=== PATIENT | female | born 1950 | race Caucasian/White ===

== ENCOUNTER 2019-06-23 16:07 | Inpatient (IN) | payer MEDICARE, OTHER ==
[~2019-06-23] VITALS: Ht 160 cm; Wt 77.6 kg
[2019-06-23] MEDS ORDERED: SODIUM CHLORIDE 0.9% 1000ML 1,000 ML IV STA (16:23)
--- NOTE | 2019-06-23 16:28 | Emergency Department Note ---
History of Present Illnes History of Present Illness Chief Complaint: Respiratory History of Present Illness This is a 69 year old female seen by PCP for cough, agnosia and weakn ess of 3 week duration. Historian: Patient, Family Member Arrival Mode: Car Onset (how long ago): week(s) (3) Radiation: non-radiation Severity: moderate Duration (how long): week(s) (3) Timing of current episode: constant Progression: worsening Chronicity: new Context: recent illness Relieving factors: none Exacerbating factors: none Associated symptoms: cough, fever/chills Treatments prior to arrival: none Past Medical/Family History Physician Review I have reviewed the patient's past medical and family history. Any updates have been documented here. Past Medical History Recent Fever: No Clinical Suspicion of Infectio: No New/Unexplained Change in Ment: No Past Medical History: None Past Surgical History: None Social History Smoking Cessation: Never Smoker Alcohol Use: None Any Illegal Drug Use: No Family History Family history of heart diseas: No Other Last Tetanus: 04/18/2019 Review of Systems Review of Systems Constitutional: fever EENTM: no symptoms Cardiovascular: no symptoms Respiratory: cough Gastrointestinal: no symptoms Genitourinary: no symptoms Musculoskeletal: no symptoms Neurological: no symptoms Psychological: no symptoms Endocrine: no symptoms Hematological/Lymphatic: no symptoms Review of other systems All other systems reviewed and negative. Physical Exam Related Data Allergies: Coded Allergies: Penicillins (Verified Allergy, Mild, 10/11/09) Triage Vital Signs Vital Signs Date Time Temp Pulse Resp B/P (MAP) Pulse Ox O2 Delivery O2 Flow Rate FiO2 06/23/19 16:19 97.5 104 24 145/81 93 Vital signs reviewed: Yes Physical Exam CONSTITUTIONAL Constitutional: distressed, ill appearing HENT HENT: normocephalic, atraumatic, oropharynx clear/moist, nose normal HENT L/R: left ext ear normal, right ext ear normal EYES Eyes: PERRL, conjunctivae normal NECK Neck: ROM normal PULMONARY Pulmonary: effort normal, breath sounds normal CARDIOVASCULAR Cardiovascular: regular rhythm, heart sounds normal, capillary refill normal, normal rate GASTROINTESTINAL Abdominal: soft, nontender, bowel sounds normal GENITOURINARY Genitourinary: exam deferred SKIN Skin: warm, dry MUSCULOSKELETAL Musculoskeletal: ROM normal NEUROLOGICAL Neurological: alert, oriented x 3, no gross motor or sensory deficits PSYCHOLOGICAL Psychological: mood/affect normal, judgement normal Results Laboratory Laboratory comments CMP : Na of 124 WBC : 14 k UA : moderate bacteria Imaging Imaging results reviewed: Yes Impressions [place] [address] Patient Name: YAMILETH LUDWIG MR #: [id number] : 1950 Age/Sex: 69/F Req #: [id number] Adm Physician: DOMINIQUE JUNIOR MD Ordered by: SUSIE WRIGHT DO Report #: [id number] Location: [facility] Room/Bed: [place] [address] Procedure: [id number] DX/CHEST SINGLE (PORTABLE) Exam Date: 06/23/19 Exam Time: 1934 REPORT STATUS: Signed Examination: Single AP view of the chest. COMPARISON: None. INDICATION: Hard time breathing, cough, shortness of breath IMPRESSION: 1. Lines and Tubes: None 2. Almost complete opacification of the right hemithorax likely secondary to large pleural effusion and associated atelectasis of the right lung. Mild patchy atelectatic changes in the left lower lung. 3. Cardiac silhouette is obscured. Left pulmonary vasculature is normal. 4. No acute bony abnormalities. Signed by: Dr. Daisy Pittman M.D. on 06/23/2019 7:58 PM Dictated By: DAIYS PITTMAN MD 57 Transcribed By: ANNIE on 06/23/191957 COPY TO: SUSIE WRIGHT DO~ Procedures 12 Lead ECG Interpretation Hspt Tutor: Interpreted by ED physician Date: June 23, 2019 Time: 18:00 Prior DRAW IN HAND tracings: reviewed Rhythm: sinus rhythm Rate: normal BPM: 97 QRS axis: normal Clinical Impression: non-specific ECG (poor R wave progressoin) Assessment & Plan Assessment & Plan Problems: (1) Pneumonia (2) Bacteria in urine (3) Hyponatremia Assessment & Plan Patient PUI with h/o of cough and agnosia. Plan to admit to the COVID-19 unit Depart Disposition: ADMITTED Last Vital Signs Date Time Temp Pulse Resp B/P (MAP) Pulse Ox O2 Delivery O2 Flow Rate FiO2 06/23/19 16:19 97.5 104 24 145/81 93 SUSIE WRIGHT DO June 23, 2019 16:28
--- NOTE | 2019-06-23 17:28 | NUR ---
SON; SOHAIL LUDWIG
[2019-06-23 18:13] LABS: BASOPHILS # (AUTO) 0.1 (0.0-0.1); BASOPHILS % 0.4 % (0.0-1.0); EOSINOPHILS % 0.2 % (0.0-6.0); HEMATOCRIT 42.5 % (34.2-44.1); HEMOGLOBIN 14.6 g/dL (12.0-16.0); LYMPHOCYTES # (AUTO) 1.3 (1.0-3.2); LYMPHOCYTES % 9.4 % (18.0-39.1); MEAN CORPUSCULAR HEMOGLOBIN 30.4 pg (28-32); MEAN CORPUSCULAR HGB CONC 34.4 g/dL (31-35); MEAN CORPUSCULAR VOLUME 88.5 fL (81-99); MONOCYTES # (AUTO) 1.3 (0.2-0.8); MONOCYTES % 9.1 % (4.4-11.3); NEUTROPHILS # (AUTO) 11.3 (2.1-6.9); NEUTROPHILS % 80.4 % (38.7-80.0); PLATELET COUNT 484 x10e3/uL (140-360); RED CELL DISTRIBUTION WIDTH 12.2 % (11.7-14.4)
[2019-06-23 18:20] LABS: STREPTOCOCCUS GRP A ANTIGEN NEGATIVE (NEGATIVE)
[2019-06-23] MEDS: LEVOFLOXACIN 750MG/D5W 150ML 150 ML IV SCH (18:23)
[2019-06-23 18:35] LABS: INFLUENZAE A&B ANTIGEN (RAPID) NEGATIVE (NEGATIVE)
[2019-06-23 18:41] LABS: ALANINE AMINOTRANSFERASE 21 IU/L (0-55); ALBUMIN 3.3 g/dL (3.5-5.0); ALBUMIN/GLOBULIN RATIO 1.1 (0.8-2.0); ALKALINE PHOSPHATASE 73 IU/L (40-150); ANION GAP 17.2 mmol/L (8-16); BLOOD UREA NITROGEN 11 mg/dL (7-26); BUN/CREATININE RATIO 16 (6-25); CALCIUM 9.1 mg/dL (8.4-10.2); CARBON DIOXIDE 19 mmol/L (22-29); CHLORIDE 92 mmol/L (98-107); CREATINE KINASE 42 IU/L (29-168); CREATININE, SERUM 0.68 mg/dL (0.57-1.11); EST GLOMERULAR FILTRATION RATE > 60 ML/MIN (60-); GLUCOSE 104 mg/dL (74-118); POTASSIUM 4.2 mmol/L (3.5-5.1); SODIUM 124 mmol/L (136-145)
[2019-06-23] MEDS ORDERED: ASPIRIN 81 MG CHEW TAB PO ONE (19:00)
[2019-06-23] MEDS ORDERED: ONDANSETRON HCL INJ 2MG/ML 2ML 2 MG/ML VIAL IV PRN (19:00)
[2019-06-23] MEDS ORDERED: MORPHINE SULFATE INJ 4 MG/ML INJ 1ML IV PRN (19:00)
[2019-06-23] MEDS ORDERED: MORPHINE SULFATE 2 MG/ML SYR 1ML IV PRN (19:00)
--- NOTE | 2019-06-23 19:00 | NUR ---
Handoff report received from Fish GALICIA
--- OUTSIDE RECORDS SUMMARY | 2019-06-23 19:19 | XMS REPORT ---
Author Author [facility] Organization [facility] Address [address] [place] [address] Phone Unavailable Care Team Providers Care [employer] Operation Name Role Phone Unavailable Unavailable Problems This patient has no known problems. Allergies, Adverse Reactions, Alerts This patient has no known allergies or adverse reactions. Medications This patient has no known medications. Procedures This patient has no known procedures. Results Test Description Test Time Test Comments Results Result Comments Source SCR MAMM BILATERAL HALLIE CAD DIGITAL 2018-11-26 11:03:54 - SCR MAMM BILATERAL HALLIE CAD DIGITALBILATERAL DIGITAL SCREENING MAMMOGRAM 3D/2D WITH CAD: 11/26/2018CLINICAL: Asymptomatic. Digital breast tomosynthesis was performed in addition to routine CC and MLO views. Current mammographic images were evaluated by either a [employer] M-Vu or a [employer] ImageChecker CAD (computer aided detection system). Comparison is made to exams dated 11/24/2017 mammogram, mammogram, and 10/28/2015 mammogram - [facility]. There are scattered fibroglandular tissues in both breasts. No suspicious mass, architectural distortion, malignant type calcification, or lymph node abnormality detected. Breast architecture is stable compared to prior exams.IMPRESSION: NEGATIVEThere is no mammographic evidence of malignancy. Resume annual screening mammography in one year. Bert Decker M.D. ss/penrad:11/26/2018 11:03:54 Rehabilitation Aide: Idania PEARSON, [facility] sent: BIRADS 1-2 Normal Mammogram BI-RADS: 1 Negative
--- NOTE | 2019-06-23 20:02 | Diagnostic Imaging Report ---
Examination: Single AP view of the chest. COMPARISON: None. INDICATION: Hard time breathing, cough, shortness of breath IMPRESSION: 1. Lines and Tubes: None 2. Almost complete opacification of the right hemithorax likely secondary to large pleural effusion and associated atelectasis of the right lung. Mild patchy atelectatic changes in the left lower lung. 3. Cardiac silhouette is obscured. Left pulmonary vasculature is normal. 4. No acute bony abnormalities. Signed by: Dr. Calvin Pittman M.D. on 06/23/2019 7:58 PM
[2019-06-24 03:05] LABS: BASOPHILS % 0.3 % (0.0-1.0); EOSINOPHILS # (AUTO) 0.1 (0.0-0.4); EOSINOPHILS % 0.7 % (0.0-6.0); HEMATOCRIT 38.3 % (34.2-44.1); HEMOGLOBIN 13.1 g/dL (12.0-16.0); LYMPHOCYTES # (AUTO) 1.6 (1.0-3.2); LYMPHOCYTES % 12.9 % (18.0-39.1); MEAN CORPUSCULAR HEMOGLOBIN 30.2 pg (28-32); MEAN CORPUSCULAR HGB CONC 34.2 g/dL (31-35); MEAN CORPUSCULAR VOLUME 88.2 fL (81-99); MONOCYTES # (AUTO) 1.3 (0.2-0.8); MONOCYTES % 10.7 % (4.4-11.3); NEUTROPHILS # (AUTO) 9.1 (2.1-6.9); PLATELET COUNT 437 x10e3/uL (140-360); RED BLOOD COUNT 4.34 x10e6/uL (3.6-5.1); RED CELL DISTRIBUTION WIDTH 12.4 % (11.7-14.4)
[2019-06-24 03:26] LABS: CREATINE KINASE MB 3.2 ng/mL (0-5.0)
[2019-06-24 03:43] LABS: ALANINE AMINOTRANSFERASE 19 IU/L (0-55); ALBUMIN 2.9 g/dL (3.5-5.0); ALKALINE PHOSPHATASE 64 IU/L (40-150); ANION GAP 15.9 mmol/L (8-16); CALCIUM 8.4 mg/dL (8.4-10.2); CARBON DIOXIDE 20 mmol/L (22-29); CHLORIDE 93 mmol/L (98-107); CREATININE, SERUM 0.64 mg/dL (0.57-1.11); EST GLOMERULAR FILTRATION RATE > 60 ML/MIN (60-); GLUCOSE 97 mg/dL (74-118); POTASSIUM 3.9 mmol/L (3.5-5.1); SODIUM 125 mmol/L (136-145)
[2019-06-24 04:07] LABS: BLOOD UREA NITROGEN 11 mg/dL (7-26); BUN/CREATININE RATIO 17 (6-25)
--- NOTE | 2019-06-24 06:56 | NUR ---
Nursing report received from J Luis GALICIA.
--- NOTE | 2019-06-24 10:19 | NUR ---
Pt placed on waffle mattress for comfort, reports she feels much better at this time. Pt noted to have large stool, informed patient that UA was still needed. Pt verbalized understanding of need for UA, specimen cup given to pt.
--- NOTE | 2019-06-24 11:23 | NUR ---
consult [id number]
[2019-06-24 11:46] LABS: CLARITY,URINE CLEAR (CLEAR); COLOR,URINE YELLOW (YELLOW); LEUKOCYTE ESTERASE ,URINE NEGATIVE (NEGATIVE); NITRITE,URINE NEGATIVE (NEGATIVE); PROTEIN,URINE DIPSTICK NEGATIVE (NEGATIVE)
[2019-06-24 11:47] LABS: BILIRUBIN,URINE SMALL (NEGATIVE); KETONES,URINE 2+ (NEGATIVE); URINE UROBILINOGEN 0.2 mg/dL (0.2 - 1)
[2019-06-24 12:11] LABS: INR 0.88; PROTHROMBIN TIME 12.4 seconds (11.9-14.5)
--- NOTE | 2019-06-24 12:49 | NUR ---
NURSING REPORT CALLED TO JAN GALICIA ON MED SURG 2, PT WILL GO TO RM 201
[2019-06-24 13:09] LABS: CREATINE KINASE 55 IU/L (29-168)
--- NOTE | 2019-06-24 13:38 | Diagnostic Imaging Report ---
CLINICAL HISTORY: Pleural effusion, COMPARISON: None SYSTEMS PROJECT MANAGER: Kev Mesa DO, JD ANESTHESIA: Local lidocaine. MEDICATIONS: Please see nursing note. DEVICE: 5 Tunisian one-step catheter. ESTIMATED BLOOD LOSS: < 5cc SAMPLE: As below. PROCEDURE: The risks, benefits, and alternatives to the procedure were discussed with the patient/healthcare proxy. All questions were answered and written informed consent was obtained. A universal timeout was performed prior to starting the procedure. All elements of maximal sterile barrier technique were utilized for this procedure, including utilization of sterile scrub solution for skin prep, a large sterile sheet to cover the areas of the patient that were not prepped, and hand hygiene, mask, head covering, and sterile gown for performing radiologist and scrub technologist. A limited ultrasound examination was performed of the chest, showing a right pleural effusion. After infiltrating the skin with 1 % lidocaine, a 5 Tunisian x 10 cm One-step catheter was advanced into the pleural space. Approximately 1.2 L of straw-colored fluid was removed. A sample was sent for analysis. The catheter was removed without immediate complication. Sterile dressing was applied. IMPRESSION: Successful ultrasound-guided diagnostic and therapeutic right thoracentesis. Signed by: Kev Mesa MD on 06/24/2019 1:35 PM
[2019-06-24 14:00] VITALS: BP 118/71
--- NOTE | 2019-06-24 14:05 | Diagnostic Imaging Report ---
TECHNIQUE: Frontal view of the chest. INDICATION: ^thora ^Y COMPARISON: Prior day. IMPRESSION: Lines and hardware: None. Heart and mediastinum: Stable. Lungs and pleura: Slightly decreased in size large right pleural effusion Completely opacifies the hemithorax. The left lung is clear. No pneumothorax. Soft tissues and bones: No acute abnormality. Signed by: Kev Mesa MD on 06/24/2019 2:02 PM
[2019-06-24 14:48] VITALS: BP 128/93
[2019-06-24 15:03] VITALS: BP 128/93
--- NOTE | 2019-06-24 15:48 | NUR ---
Patient arrived to the unit @ 1405 via stretcher. Patient in stable condition, no s/s of distress noted. Telemetry applied and working. On Oxygen 3 lpm/NC. Bed in lowest position and locked. Call light within reach.
[2019-06-24 16:00] VITALS: BP 128/93
[2019-06-24] MEDS: LEVOFLOXACIN 750MG/D5W 150ML 150 ML IV SCH ×2 (16:41→16:47)
[2019-06-24 17:45] LABS: BODY FLUID APPEARANCE CLOUDY; BODY FLUID COLOR STRAW; BODY FLUID TYPE PLEURAL
[2019-06-24 17:46] LABS: RBC,BODY FLUID 414 cells/uL; WBC,BODY FLUID 419 cells/uL
--- NOTE | 2019-06-24 18:20 | Consultation ---
DATE OF CONSULTATION: REASON FOR CONSULTATION: Pneumonia. HISTORY OF PRESENT ILLNESS: Ms. Figueroa is a 69-year-old white female, comes in the emergency room with shortness of breath, cough, not feeling well, sick for the last 3 weeks. The patient comes in to the emergency room, she was admitted. Blood culture was sent. Her COVID-19 came back negative. Her influenza came back negative. Her sodium 125, potassium 3.9 with a creatinine 0.64. White count 12.7 with hemoglobin of 13. She had chest x-ray, which showed complete opacification in the right hemothorax secondary to large pleural effusion. The patient was admitted. I am asked to see her. PAST MEDICAL HISTORY: She denies. PAST SURGICAL HISTORY: She denies. ALLERGIES: INSULIN. SOCIAL HISTORY: There is no smoking, drug abuse, or alcohol abuse currently. She used to smoke recurrent apparently. REVIEW OF SYSTEMS: Otherwise unremarkable. PHYSICAL EXAMINATION: GENERAL: She is currently alert, oriented, does not seem in acute distress. VITAL SIGNS: Stable. Currently afebrile. HEENT: She is not icteric. NECK: Supple. CHEST: Few crackles. COR: S1, S2. No murmurs. ABDOMEN: Soft. IMPRESSION: Large pleural effusion, concerned about pneumonia, concerned about pleuritic effusion, concerned about other pathology for pleural effusion. The patient has history of smoking such as malignancy, etc. Agree with ultrasound-guided thoracocentesis. We will send fluid for cell count and diff, protein glucose, LDH, culture sensitivity, AFB and fungal. We will put the patient on Levaquin for the time being. Recheck CBC. Recheck Chem panel. We will follow. MD KEENAN Lozoya/MODAaron /[id number]
--- NOTE | 2019-06-24 19:16 | NUR ---
Completed bedside shift report and rounding. Patient in stable condition, no s/s of distress noted. No pain voiced. Telemetry applied and working. Bed in lowest position and locked. Call light within reach.
[2019-06-24 19:29] LABS: LYMPHOCYTES,BODY FLUID 58 %; MONO/MACROPHG,BODY FLUID 5 %; NEUTROPHILS,BODY FLUID 37 %
[2019-06-24 19:50] LABS: CREATINE KINASE 53 IU/L (29-168)
[2019-06-24 20:00] VITALS: BP 127/77
[2019-06-24] MEDS: ACETAMINOPHEN 325 MG TAB PO PRN (21:25)
[2019-06-24] MEDS: ALBUTEROL/IPRATROPIUM 3 ML NEB NEB PRN (21:50)
[2019-06-24 22:37] VITALS: BP 127/77
[2019-06-25] VITALS (8 sets, daily range): BP systolic 91–123; BP diastolic 49–80
[2019-06-25] MEDS: ALBUTEROL/IPRATROPIUM 3 ML NEB NEB PRN ×4 (06:35→20:40)
--- NOTE | 2019-06-25 07:24 | NUR ---
Received bedside shift report from off going nurse. Patient in stable condition, no s/s of distress noted. no pain voiced. Telemetry applied and working. Bed in lowest position and working. Call light within reach.
[2019-06-25] MEDS ORDERED: HYOSCYAMINE 0.125 MG TAB ONE (07:43)
--- NOTE | 2019-06-25 09:53 | Progress Note ---
DATE: SUBJECTIVE: The patient is seen and evaluated. Available labs and notes reviewed. REVIEW OF SYSTEMS: Still short of breath on exertion. She is overall feeling better since the procedure yesterday, but still remains with shortness of breath. No nausea, no vomiting, no fever, no chills, no rash. She has occasional cough. PHYSICAL EXAMINATION: VITAL SIGNS: Temperature 97.6, pulse 92, respirations 20, and blood pressure 114/63. GENERAL: Alert and oriented, very pleasant, in no acute distress. Occasional cough during my conversation with the patient. Still seems to be short of breath when she talks. Remains on O2 supplement through the nasal cannula. CV: S1, S2. CHEST: Equal expansion. Decreased breath sounds. No acute distress. ABDOMEN: Soft, nontender. Positive bowel sounds. HEENT: Moist. No pallor. No JVD. EXTREMITIES: Trace edema. MEDICATIONS: Medication list reviewed. As far as Infectious Disease point of view, the patient is currently on Levaquin IV daily. LABORATORY STUDIES: No new CBC, BMP, however, labs from yesterday showed white count of 12.07, improved from 14.08 from the day before. Hemoglobin 13.1, platelet 437. Sodium 125, potassium 3.9, creatinine 0.64. SEROLOGY: Coronavirus PCR not detected on 06/23. Influenza A and B antigen and group A strep screen negative on 06/22. MICROBIOLOGY: Blood culture negative on 06/22. Throat culture showed usual respiratory tamra on 06/22. The patient is status post thoracentesis with fluid culture showing no growth after 24 hours from 06/23. RADIOLOGY STUDIES: Chest x-ray from yesterday showed slightly decrease in size of a large right-sided pleural effusion. After thoracentesis, the left lung is clear. ASSESSMENT AND PLAN: 1. Large pleural effusion, status post thoracentesis with culture negative. 2. Concern about pneumonia-patient on Levaquin. 3. Labs as mentioned above. 4. Cultures negative. 5. Currently with neb treatment. 6. Pain management per others. 7. Continue monitor the patient clinically and follow up with the labs. Please refer to chart for more information. Dictated by Alfonso Little PA-C (Al) Zaid Yee MD /MODL /[id number]
[2019-06-25 13:06] LABS: EPITHELIAL CELLS,URINE FEW /LPF; RBC,URINE 0-5 /HPF (0-5); TRANSITIONAL EPI CELLS,URINE FEW; WBC,URINE (MAN) 0-5 /HPF (0-5)
[2019-06-25 13:07] LABS: CALCIUM OXALATE CRYSTALS,UR MODERATE (FEW)
[2019-06-25 13:08] LABS: BACTERIA,URINE MODERATE /HPF
--- NOTE | 2019-06-25 15:17 | Diagnostic Imaging Report ---
CT of the chest. Comparison: No previous CT Clinical History: Follow-up pneumonia. Other clinical history not provided. Technique: Helical CT scan of the chest was performed from just above the thoracic inlet through the adrenal glands. Intravenous contrast administration was not utilized. Coronal and sagittal reconstructions were generated from the raw data. Multiple images were submitted for interpretation. This exam was performed according to our departmental dose-optimization program which includes automated exposure control, adjustment of the mA and/or kV according to patient size Discussion: Lung garcia: Near total atelectasis of the right lung with collapse to the right hilum with patent bronchi. Only a small part of the right upper lobe is aerated. Massive right pleural effusion with mediastinal shift to the left and flattening of the right hemidiaphragm. The left lung appears otherwise unremarkable. Central airways: Unremarkable Pleural spaces and pleura: As above. There is no left pleural effusion. There is no pneumothorax Pulmonary pao: The left pulmonary hilum appears grossly unremarkable. The right pulmonary hilum is difficult to evaluate. There is a tiny calcified structure just posterior to the right mainstem bronchus. This might represent a calcified lymph node. Please note that in the absence of IV contrast medium and with the findings in the right lung, evaluation of the pulmonary pao is incomplete. Mediastinum: Shift to the left as described above. Otherwise unremarkable. Cardiac chambers and pericardium: Otherwise unremarkable Systemic great vessels: Calcific atherosclerosis Central pulmonary vessels: Limited visualization. The main and right and left pulmonary arteries unremarkable to the extent seen. Lack of contrast media decreases the sensitivity of this exam. Thyroid: Unremarkable Lymph nodes: See above Azygos vein: Unremarkable The esophagus: Normal. Thoracic duct: Unremarkable Osseous structures: Degenerative changes Upper abdomen: To the extent seen unremarkable Body wall: Unremarkable Breasts: Unremarkable Axilla: Unremarkable Lower neck: Unremarkable. Impression: Large right pleural effusion with fluid density material, near complete atelectasis of the right lung and mediastinal shift and flattening of the diaphragm as described above. Lack of administration of intravenous contrast medium interferes with the sensitivity of this exam. Contrast-enhanced chest CT may be performed after drainage of the pleural effusion possibly with a chest tube. Signed by: Minor Wilkinson MD on 06/25/2019 3:13 PM
--- NOTE | 2019-06-25 16:27 | NUR ---
Nutrition Intervention Note RD Recommendation(s) for Physician: -Recommend regular diet -Ensure Compact BID for added nutrition Plan of Care: RD following, monitoring for tolerance and adequacy Nutrition reason for involvement: Nutrition Risk Trigger MST 2 RD Assessment (06/25/19) Pt is a 69 year old female admitted with pneumonia. Pt stated her appetite was down and eating < 50% for the past 2 weeks, but her appetite has improved today. Pt stated she ate all of her breakfast and lunch today. Pt also mentioned she had lost weight and had weighed 166 lbs 2 weeks ago. Pt currently has a weight of 162 lbs in chart; therefore, this would be a 2% weight loss in 2 weeks. Pt was interested in a nutrition supplement. Recommend Ensure Compact BID for added nutrition. Will continue to monitor. Principal Problems/Diagnoses: pneumonia PMH: none I/O: 360/- GI: soft, non-tender, round abdomen Skin: no pressure ulcer or wounds Labs: (06/24) Na 125 Meds: zofran, NaCl, antibiotic Ht: 63 inches Wt: 162 lbs BMI: 28.7 kg/m2 IBW: 115 lbs Malnutrition Evaluation (06/25/19) The patient does not meet criteria for a specified degree of malnutrition at this time. Will re-evaluate at follow-up as appropriate. Nutrition Prescription (Diet Order): cardiac diet Estimated Nutritional Needs: 4528-3153 calories/day (18-20 kcal/kg CBW) 74-110 g protein/day (1-1.5 g pro/kg CBW) Diet Adequacy: pt was not meeting calorie or protein needs prior to admission, but reports her appetite has improved today and stated she consumed all of her breakfast and lunch Tolerance: Tolerating PO Diet Education Needs Assessment: Diet education not indicated Nutrition Care Level: low Nutrition Diagnosis: Unintended weight loss related to decreased ability to consume sufficient energy secondary to decreased appetite as evidenced by 2% weight loss in 2 weeks. Goal: Patient will meet 75-100% of estimated needs by follow up Progress: N/A Interventions: -General healthful diet, Commercial beverage, Recommended Modifications Monitoring/Evaluation: -Total energy intake, Total protein intake, Liquid supplement, Weight change Signed: Kim Adorno, RD, LD
[2019-06-25] MEDS: LEVOFLOXACIN 750MG/D5W 150ML 150 ML IV SCH (17:05)
--- NOTE | 2019-06-25 19:13 | NUR ---
Dr. Yee notified about the CT results showing pleural Effusion. Dr. Yee consulted Catr[place] about the results of the CT. Dr. Yee contacted himself.
--- NOTE | 2019-06-25 19:22 | NUR ---
BEDSIDE SHIFT REPORT RECEIVED FROM DAY RN. PT IS ALERT AND ORIENTED X3. RESPIRATIONS - SOB WITH EXERTION -02 AT 3L PER N/C. HX PNEUMONIA.CT CHEST - PLEURAL EFFUSION.TELE ON.20 G RT AC SL. BOWEL SOUNDS PRESENT. VOIDING PER BATHROOM. sITTING UP ON SIDE OF BED WATCHING TV. RECEIVING NEB TX Q 4HRS PRN SOB. CALL LIGHT WITHIN REACH. BED IN LOW POSITION. DR VALDOVINOS HERE TO SEE PT.
--- NOTE | 2019-06-25 20:45 | NUR ---
Pulmonary [id number]
--- NOTE | 2019-06-25 21:21 | NUR ---
Operative/Procedure Note Procedure: Therapeutic thoracentesis Indication: Massive pleural effusion Consent: Informed consent by patient Dye Colorist Formulator: Phillip Vieira MD Anesthesia: Lidocaine 1% 3 cc local Procedure findings: Fluid was easily localizable by auscultation and percussion. After sterile prep and drape, the US probe was not able to discern fluid easily due to wrong probe. The procedure was deemed low risk so we localized needle insertion site clinically. Local lidocaine given. Needle and catheter were inserted into ~9th ICS posteriorly near previous thoracentesis site. With soft catheter in place, 2.2 L of light brown minimally cloudy fluid was extracted. The catheter was removed and the procedure was terminated due to patient having increasing chest pressure. EBL: <1 cc Complications: none Summary: Right thoracentesis with 2.2 L output
--- NOTE | 2019-06-25 21:30 | NUR ---
Operative/Procedure Note Procedure: Therapeutic thoracentesis Indication: Massive pleural effusion Consent: Informed consent by patient Public Policy Coordinator: Phillip Vieira MD Anesthesia: Lidocaine 1% 3 cc local Procedure findings: Fluid was easily localizable by auscultation and percussion. After sterile prep and drape, the US probe was not able to discern fluid easily due to wrong probe. The procedure was deemed low risk so we localized needle insertion site clinically. Local lidocaine given. Needle and catheter were inserted into ~9th ICS posteriorly near previous thoracentesis site. With soft catheter in place, 2.2 L of light brown minimally cloudy fluid was extracted. The catheter was removed and the procedure was terminated due to patient having increasing chest pressure. EBL: <1 cc Complications: none Summary: Right thoracentesis with 2.2 L output ADDENDUM: Due to chest pressure and clinical risk of re-expansion edema, the thoracentesis valve was opened to air to allow equilibriation of pressures. Erasto e small amount of air flow was heard sucked into the catheter c/w intentional pneumothorax.
--- NOTE | 2019-06-25 22:00 | NUR ---
THORACENTESIS DONE BY DR VALDOVINOS. PT ABLE TO BREATH EASIER AFTER PROCEDURE. 2.5 l OF LIQUID REMOVED. PT TOLERATED PROCEDURE WELL. BANDAIDE TO RT LOWER BACK. LIQUID SENT TO LAB FOR CYTOLOGY ORDERED. VS STABLE.
--- NOTE | 2019-06-25 22:03 | Diagnostic Imaging Report ---
EXAMINATION: CHEST SINGLE (PORTABLE) INDICATION: Thoracentesis. COMPARISON: CT Chest 06/25/19, chest radiograph 06/24/19. FINDINGS: TUBES and LINES: None. LUNGS/PLEURA: Status post interval thoracentesis with decreased size of right-sided pleural effusion, with residual large pleural effusion. There is increased aeration of the right upper lung. Atelectatic changes in the right lower lung. There are mild interstitial opacities in the right upper lung. Mild patchy left basilar opacity, likely atelectasis. HEART AND MEDIASTINUM: The cardiomediastinal silhouette is unchanged. Obscured right cardiac margin. No significant mediastinal shift identified. BONES AND SOFT TISSUES: No acute osseous lesion. Soft tissues are unremarkable. UPPER ABDOMEN: No free air under the diaphragm. IMPRESSION: Status post interval thoracentesis with decreased size of right-sided pleural effusion. Residual large right pleural effusion. Increased aeration in the right upper lung. No evidence of pneumothorax. Mild interstitial opacities in the right upper lung may represent expansion pulmonary edema. Signed by: Dr. Nguyen Meyer MD on 06/25/2019 10:00 PM
[2019-06-25] MEDS: ACETAMINOPHEN 325 MG TAB PO PRN (22:22)
[2019-06-26] VITALS (8 sets, daily range): BP systolic 92–115; BP diastolic 64–79
--- NOTE | 2019-06-26 02:47 | Consultation ---
DATE OF CONSULTATION: 06/25/2019 Pulmonary Medicine Consult PRIMARY CARE PHYSICIAN: Dr. Abdalla. CHIEF COMPLAINT: Abnormal chest radiography. HISTORY OF PRESENT ILLNESS: Ms. Figueroa is a pleasant 69-year-old female with shortness of breath. The patient has been having some shortness of breath over many months. However, there is accelerated pace over the last 3 weeks. When she came to emergency room, flu assay was negative. COVID-19 assay was negative. The patient was found on chest x-ray with near-complete opacification of the right hemithorax due to large pleural effusion. She was admitted. Mild allergies. Mild GERD. No COPD known. No asthma known. The patient did breast cancer screening with mammogram in 2019. The patient did guaiac stool assessment 3 years ago as part of colon cancer screening. PAST MEDICAL HISTORY: Mild allergies, mild GERD. MEDICATIONS: Medication list reviewed per the chart record. The patient does not take much medicine at all. ALLERGIES: PENICILLINS. SOCIAL HISTORY: No drugs, no alcohol. She smoked from age 23 to 69, active, one pack per day. She has a dog and a cat. She was an reconciliation accountant. She was born in [place], [place] and moved to [place] at age 30. [place]. FAMILY HISTORY: Noncontributory. REVIEW OF SYSTEMS: GENERAL: Mild anorexia. HEENT: No mouth ulcers. Ophthalmologic, no floaters. ENDOCRINE: No thyroid disease. PULMONARY: No known TB. CARDIAC: No heart attack. GI: No diarrhea. : No blood in urine. DERMATOLOGIC: No rash. NEUROLOGIC: No seizures. PHYSICAL EXAMINATION: VITAL SIGNS: Afebrile, vital signs noted, reviewed per the chart record. GENERAL: In no acute distress, alert, calm, slightly anxious. HEENT: Normocephalic, atraumatic. NECK: Supple. Throat midline. LUNGS: Bilateral air entry, but is significantly diminished on right side. CARDIOVASCULAR: S1, S2. No murmurs, rubs, or gallops. ABDOMEN: Soft, nontender. EXTREMITIES: No clubbing. No cyanosis. There is no edema. INTEGUMENT: No rash. No purpura. LABORATORY DATA: INR was 0.88. Platelets 437. White count 12. 3.9 potassium, 11 BUN, 0.6 creatinine. Pleural fluid analysis with 419 WBCs, 58% lymphocytes. Total protein 3.9, LDH 160. IMPRESSION AND PLAN: 1. Massive right-sided pleural effusion, most likely due to her present malignancy. Rule out mycobacterial infection or other etiologies. 2. Chronic smoker. 3. Acute community-acquired pneumonia. 4. Hyponatremia, possible SIADH. 5. Mild allergies. 6. Mild gastroesophageal reflux disease. The patient requires more drainage of pleural effusion, initially 1.2 L were removed and she likely has about 4 L net hemithorax. Followup pleural fluid analysis. Follow up cytology. The patient will need diagnostics if they were not able to get enough some markers from any cytology. Consider CT chest with contrast once lung is expanded. Thank you very much, Dr. Ortiz, for this consult. Please call for questions. MD JAMIR Schreiber/VIVEK /[id number]
--- NOTE | 2019-06-26 07:00 | NUR ---
BEDSIDE SHIFT REPORT RECEIVED FROM EVENT ATTENDANT RN. PT DENIES NEEDS AT THIS TIME.
--- NOTE | 2019-06-26 09:47 | Diagnostic Imaging Report ---
X-ray chest AP portable History: Atelectasis Comparison: 06/25/2019 Findings: Central airways to the extent seen are unremarkable. Heart size borderline. Aorta unremarkable. Large right pleural effusion with dense opacification of the lower right hemithorax consistent with the history of a pleural effusion. The pleural effusion is also producing layering and a right apical pleural cap. The aerated right lung is otherwise unremarkable. No right pneumothorax. Left hemithorax is unremarkable for an effusion or pneumothorax. There is no focal disease in the left lung to the extent seen. Presence of multiple lead wires over the left lung apex interfered with her confident interpretation of this region. It was unremarkable on the comparison x-ray. No acute abnormalities of the visualized skeletal structures and extrathoracic soft tissues. Impression: Persistent right pleural effusion. Signed by: Minor Wilkinson MD on 06/26/2019 9:44 AM
--- NOTE | 2019-06-26 10:09 | NUR ---
spoke with dr pena concerning pt thoracentesis since he did one last evening. he states he was unable to complete the study due to pt chest pain. he requested us to rescan chest and if pt still has fluid to do another thoracentesis today. sherley sharma notiified on floor
--- NOTE | 2019-06-26 10:22 | Progress Note ---
DATE: SUBJECTIVE: The patient is seen and evaluated. Available labs and notes reviewed. Discussed with the nurse. REVIEW OF SYSTEMS: The patient feels better. Improved significant in breathing. Eats well. No diarrhea. No chest pain. Shortness of breath has improved. No vomiting. No fever. PHYSICAL EXAMINATION: VITAL SIGNS: Temperature 97.8, pulse is 94, respirations 17, blood pressure 115/75. GENERAL: Alert and oriented, in no acute distress. CV: S1, S2. CHEST: Equal expansion. Decreased breath sounds. No acute distress. ABDOMEN: Soft, nontender. No distention. HEENT: Moist. No pallor. No JVD. EXTREMITIES: No edema. Moves all. MEDICATIONS: Medication list reviewed. The patient is currently on Levaquin IV. LABORATORY STUDIES: White count of 12.07, improved from 14.08, hemoglobin 13.1, platelet 437. No new BMP. SEROLOGY: Coronavirus PCR is not detected on 06/24/2019. Influenza A and B antigen and group A strep screen negative on 06/22. MICROBIOLOGY: Blood culture negative. Throat culture showed usual respiratory tamra and pleural fluid was negative after 24 hours of culturing. RADIOLOGY: Chest x-ray followup is pending. Chest x-ray from yesterday shows status post interval thoracentesis with decreased size of the right-sided pleural effusion. Residual large right pleural effusion was noted. Also, increased aeration in her right upper lung. No evidence of pneumothorax. ASSESSMENT AND PLAN: 1. Pleural effusion, status post thoracentesis with culture negative. Discussed with the patient, states that they did an another thoracentesis last night at the bedside. 2. Concern pneumonia. 3. Shortness of breath, improved post thoracentesis. Followup with a chest x-ray from today. Cultures negative so far. Remains on Levaquin. Clinically improved. Pulmonology noted. The patient may need further thoracentesis. Continue the antibiotic. Monitor the patient clinically. Follow up with the labs. Dictated by Alfonso Little PA-C (Al) Zaid Yee MD /MODL /[id number]
--- NOTE | 2019-06-26 12:17 | NUR ---
Pulmonary Medicine DATE 06/26/2019 SUBJECTIVE: Feeling better less sob no resting chest tightness, some pleuritic pain on deep breaths mild 3 L/min oxygen REVIEW OF SYSTEMS: NO BLEEDING, no rash PHYSICAL EXAMINATION: VITAL SIGNS: vital signs noted, reviewed per the chart record. GENERAL: no acute distress, alert, calm, slightly anxious. HEENT: Normocephalic, atraumatic. NECK: Supple. Throat midline. LUNGS: Bilateral air entry, still diminished on right side. CARDIOVASCULAR: S1, S2. No murmurs, rubs, or gallops. ABDOMEN: Soft, nontender. EXTREMITIES: No clubbing. No cyanosis. no edema. INTEGUMENT: No rash. No purpura. LABORATORY DATA: no new updates IMPRESSION AND PLAN: 1. Massive right-sided lymphocytic pleural effusion, most likely due to malignancy. Rule out mycobacterial infection or other etiologies. 2. Chronic smoker. 3. Acute community-acquired pneumonia. 4. Hyponatremia, possible SIADH. 5. Mild allergies. 6. Mild gastroesophageal reflux disease. CXR today noted Check US chest, get thoracentesis again Await reasonable/maximal drainage of pleura, then check contrast CT chest Follow up cytology. Further interventions will be based on predominantly the CT chest +/- cytology result. Thank you very much, Dr. Ortiz, for this consult. Please call for questions.
--- NOTE | 2019-06-26 16:31 | Diagnostic Imaging Report ---
US Guided Thoracentesis. History: Recurrent hydrothorax. Request for thoracentesis. [employer] Consultant: Minor Wilkinson MD. Package Car Driver: None. Modality: Ultrasound Sedation: None. Anesthesia: Lidocaine 1% local infiltration. Estimated blood loss: < 5 cc. Technique: Informed written consent was obtained. Discussion of risks, benefits, and alternatives were made with the patient. The patient expressed understanding and agreed to proceed. A universal timeout was performed prior to starting the procedure. Maximal sterile precautions were utilized. The procedure room personnel used personal protective equipment. The operators additionally used sterile surgical gloves. A preliminary ultrasonography was performed to assess the target and determine a safe access site. It showed a pleural effusion. Pertinent ultrasound images were stored to the PACS for documentation. The patient was sat on the edge of the stretcher leaning forward onto a table. A posterior intercostal access site was selected and sterilely prepped and draped. Local anesthesia was administered. A catheter over the needle system was advanced into the Pleural space. Straw colored fluid was aspirated and the plastic catheter advanced into the pleural space. The catheter was then connected to a fluid recovery system. At the end of the procedure, the catheter was withdrawn and an aseptic dressing applied. The patient tolerated the procedure well. The total amount of fluid recovered was 1.0 liters. Postprocedure chest x-ray showed no pneumothorax. After uneventful recovery recovery, the patient was discharged from the department in stable condition. Complications: None immediate. Specimen: Not applicable. Impression: Successful ultrasound-guided thoracentesis of right pleural effusion as described above. Thank you for the opportunity to assist in the care of your patient. Signed by: Minor Wilkinson MD on 06/26/2019 4:27 PM
--- NOTE | 2019-06-26 16:43 | Diagnostic Imaging Report ---
X-ray chest AP portable. History: Post right thoracentesis Comparison: 06/26/2019 at 8:41 AM Findings: Significant improvement of the right pleural effusion. Persistent small right hemithorax opacity in the basilar and costophrenic areas suggesting residual pleural effusion and/or atelectasis. There is a faint lucency in the right apical lung region which raises the possibility of a small pneumothorax. No other significant changes. An upright expiratory chest x-ray has been ordered to further evaluate a small right apical lucency. Signed by: Minor Wilkinson MD on 06/26/2019 4:40 PM
--- NOTE | 2019-06-26 17:10 | Diagnostic Imaging Report ---
X-ray chest AP portable and expiration History: Post thoracentesis right side with right apical lucency. Findings: The current exam compared with the examination of 06/26/2019 at 1619 and 06/25/2019 8:41 AM and 06/25/2019 at 2129 shows persistent irregularly contoured right apical lucency. This could represent a small apical pneumothorax that developed after 06/25/2019 at 2128 although the contour is atypical. This has not progressed in the interim. Impression: Small apical lucency on the right hemithorax which could represent an atypical pneumothorax and can be further evaluated on a chest CT if needed. Dr. Wilkinson communicated with the floor nurse Behzad at the time of this dictation. Signed by: Minor Wilkinson MD on 06/26/2019 5:07 PM
[2019-06-26] MEDS: LEVOFLOXACIN 750MG/D5W 150ML 150 ML IV SCH (17:52)
--- NOTE | 2019-06-26 19:20 | NUR ---
BBEDSIDE SHIFT REPORT RECEIVED FROM DAY RN. PT IS ALERT AND ORIENTED X3. RESPIRATIONS ARE EVEN AND UNLABORED. 02 ON AT 3l PER N/C. TELE ON. DENIES PAIN. S/P THORACENTESIS 06/25 ON DAY SHIFT. PT REPORTS ABLE TO BREATH BETTER. 20 G SL IN RT AC. VOIDING WITHOUT DIFFICULTY.WALKS TO BATHROOM SOB AT TIMES WEARS O2. CALL LIGHT WITHIN REACH. BED LOCKED AND IN LOW POSITION. PT TO HAVE CT SCAN THIS PM.
--- NOTE | 2019-06-26 21:14 | Diagnostic Imaging Report ---
EXAMINATION: CT scan of the chest with contrast. TECHNIQUE: Spiral CT images of the chest were performed from the lung apices to the level of the adrenal glands after the intravenous administration of 100 cc of Isovue 370. Coronal and sagittal reformatted images were obtained. COMPARISON: AP chest 06/26/2019 CLINICAL HISTORY:Suspected pneumonia, status post thoracentesis DISCUSSION: LINES/TUBES: None. LUNGS AND AIRWAYS: Marked compressive atelectasis of the right lower and moderate compressive atelectasis of the right middle and upper lobe secondary to large effusion. Aerated portions of the right middle lobe and right lower lobe show no nodules, masses or consolidation. Mild left apical pleuroparenchymal scarring. Linear opacities in the medial aspect of the lingula and left lower lobe consistent with subsegmental atelectasis or scarring (for example series 3, image 68). No left lung consolidation 4 mm pulmonary nodule in the lingula (series 3, image 82). 4 mm nodular density in the posterior left lower lobe may represent a small nodule or focal scarring (series 3, image 63). No pulmonary masses. The airways are clear, without endobronchial lesions. PLEURA: Large right-sided pleural effusion, which may be partly loculated. Several air foci are noted in the effusion fluid at the apex, likely secondary to recent thoracentesis. No left effusion. HEART AND MEDIASTINUM: Thyroid is unremarkable. Heart size is normal. No pericardial effusion. Aorta is nonaneurysmal. Maintained pulmonary artery is normal in caliber. LYMPH NODES: There is no mediastinal, hilar or axillary lymphadenopathy. ABDOMEN: Limited contrast-enhanced views of the upper abdomen show no significant abnormality within the visualized liver, spleen, pancreas, or kidneys. The adrenal glands are unremarkable. BONES AND SOFT TISSUES: No aggressive lytic or suspicious sclerotic lesions. Degenerated discs in the thoracic spine, with associated osteophytosis. Soft tissues are grossly unremarkable. IMPRESSION: 1. Large right-sided effusion, which may be partly loculated and associated marked compressive atelectasis of the right lower and moderate compressive atelectasis of the right middle and upper lobes. 2. Aerated portions of the right lung as well as the left lung showed no consolidation to suggest pneumonia. 3. Several air foci in the right pleural fluid at the apex, likely secondary to recent thoracentesis. 4.4 mm pulmonary nodule in the lingula. If patient is low risk, no further follow-up is indicated per Fleischner Society 2017 guidelines. Signed by: Dr. Calvin Pittman M.D. on 06/26/2019 9:11 PM
[2019-06-26] MEDS: ACETAMINOPHEN 325 MG TAB PO PRN (21:47)
[2019-06-27] VITALS (8 sets, daily range): BP systolic 84–139; BP diastolic 54–69
[2019-06-27] MEDS: DEXTROSE 5%/0.9% SOD CHL 1,000 ML IV SCH ×2 (02:22→14:28)
[2019-06-27] MEDS ORDERED: IOPAMIDOL 370 MG/ML 200 ML INFUS..BTL INJ ONE (05:51)
[2019-06-27] MEDS ORDERED: SODIUM CHLORIDE 0.9% 50ML 50 ML ONE (05:52)
[2019-06-27 06:08] LABS: ALANINE AMINOTRANSFERASE 227 IU/L (0-55); ALBUMIN 1.8 g/dL (3.5-5.0); ALBUMIN/GLOBULIN RATIO 0.6 (0.8-2.0); ALKALINE PHOSPHATASE 190 IU/L (40-150); ANION GAP 11.1 mmol/L (8-16); BLOOD UREA NITROGEN 10 mg/dL (7-26); BUN/CREATININE RATIO 18 (6-25); CARBON DIOXIDE 24 mmol/L (22-29); CHLORIDE 95 mmol/L (98-107); CREATININE, SERUM 0.55 mg/dL (0.57-1.11); EST GLOMERULAR FILTRATION RATE > 60 ML/MIN (60-); GLUCOSE 107 mg/dL (74-118); MAGNESIUM 1.8 MG/DL (1.3-2.1); POTASSIUM 4.1 mmol/L (3.5-5.1); SODIUM 126 mmol/L (136-145)
[2019-06-27 06:30] LABS: LACTATE DEHYDROGENASE 174 IU/L (125-220); PHOSPHORUS 2.4 MG/DL (2.3-4.7)
--- NOTE | 2019-06-27 07:00 | NUR ---
BEDSIDE SHIFT REPORT RECEIVED FROM FALL [employer] RN. PT DENIES NEEDS AT THIS TIME.
--- NOTE | 2019-06-27 10:20 | NUR ---
Pt unavailable at this time. Will follow up as able. HAZEL KHOURY Rn Documentation Specialist Spiritual Care Department O: [phone]
--- NOTE | 2019-06-27 10:38 | Progress Note ---
DATE: SUBJECTIVE: The patient is seen and evaluated. Available labs and notes reviewed. REVIEW OF SYSTEMS: No nausea, vomiting, fever, chills, or chest pain. Shortness of breath improved. Still remains with cough when takes a deep breath. PHYSICAL EXAMINATION: VITAL SIGNS: Temperature 97.5, pulse 81, respiration 18, and blood pressure 107/61. GENERAL: Alert and oriented, eating breakfast. No acute distress. CV: S1 and S2. CHEST: Equal expansion. No acute distress. Expiratory crackles on the left side. Decreased breath sounds bilaterally. ABDOMEN: Soft. No tender. No distention. HEENT: Moist. No pallor. No JVD. EXTREMITIES: Moves all. No significant edema. MEDICATIONS/ANTIBIOTICS: On Levaquin. LABORATORY STUDIES: No new CBC from today. Sodium 126, potassium 4.1, and creatinine 0.55. Serology; coronavirus PCR 06/24/2019, not detected. Influenza type A and B antigen and group A strep screen both negative on 06/23/2019. MICROBIOLOGY: Blood culture, 06/22; throat culture, 06/22; pleural fluid culture, 06/23; all negative so far. IMAGING: CT of the chest from yesterday showed large right-sided effusion, which may be partially loculated and associated marked compressive atelectasis of the right lower and moderate compressive atelectasis of the right middle and upper lobes. Aerated portion of the right lung as well as the left lung showed no consolidation to suggest pneumonia. Several air foci in the right pleural fluid at the apex, likely secondary to recent thoracentesis. A 4.4 mm pulmonary nodule in the lingual. ASSESSMENT AND PLAN: 1. Pleural effusion, status post thoracentesis. Recheck CT from yesterday as above. 2. Concern loculated effusion. 3. Concern pneumonia. 4. Shortness of breath, improved. 5. Chronic obstructive pulmonary disease. 6. Pulmonary nodule. 7. Continue with antibiotics. Continue with the neb treatment. Pulmonology on the case. Concern most likely malignancy. 8. Gastroesophageal reflux disease. 9. Hyponatremia. 10. Discussed with Dr. Yee. Overall guarded prognosis. Continue PT/OT. Monitor the patient clinically and follow up with the labs. Dictated by Alfonso Little PA-C (Al) MD AURA Lozoya/VIVEK /[id number]
--- NOTE | 2019-06-27 11:40 | NUR ---
Pulmonary Medicine DATE 06/27/2019 SUBJECTIVE: Feeling better less sob no resting chest tightness, some pleuritic pain on deep breaths mild 3 L/min oxygen REVIEW OF SYSTEMS: NO BLEEDING, no rash PHYSICAL EXAMINATION: VITAL SIGNS: vital signs noted, reviewed per the chart record. GENERAL: no acute distress, alert, calm, slightly anxious. HEENT: Normocephalic, atraumatic. NECK: Supple. Throat midline. LUNGS: Bilateral air entry, still diminished on right side. CARDIOVASCULAR: S1, S2. No murmurs, rubs, or gallops. ABDOMEN: Soft, nontender. EXTREMITIES: No clubbing. No cyanosis. no edema. INTEGUMENT: No rash. No purpura. LABORATORY DATA: no new updates IMPRESSION AND PLAN: 1. Massive right-sided lymphocytic pleural effusion, most likely due to malignancy. Rule out mycobacterial infection or other etiologies. 2. Chronic smoker. 3. Acute community-acquired pneumonia. 4. Hyponatremia, possible SIADH. 5. Mild allergies. 6. Mild gastroesophageal reflux disease. CT chest reviewed. Patient not expected for procedure today. Thoracic surgeon evaluation for VATS + decortication +/- tunnelled pleural catheter placement. Timing/consent approvals per patient, surgeon evaluation, and insurance. Follow up cytology. Unlikely to be diagnostic for infection. Less likely to be diagnostic for malignancy given the fluid age, and pathology will likely need larger tissue. patient would symptomatically benefit from decortication and not just cytologic evaluation. Abx per ID Thank you very much, Dr. Ortiz, for this consult. Please call for questions.
--- NOTE | 2019-06-27 13:56 | Diagnostic Imaging Report ---
Right upper quadrant abdominal ultrasound Clinical History: Elevated LFT Discussion: Sonographic evaluation of the right upper quadrant of the abdomen is performed. The liver has normal size and measures 17.8 cm in length. The liver demonstrates coarse echotexture with lobulated contour, without focal mass. There is no intra or extrahepatic biliary dilatation. The common bile duct measures 3 mm. The gallbladder has normal appearance, without wall thickening, stones, or pericholecystic fluid. The main portal vein diameter is normal, measuring 8 mm. The pancreatic head, body, and proximal tail demonstrate no abnormality. There is no ascites. The right kidney measures 12.1 cm in length and is normal in size. There is no renal mass, hydronephrosis, or shadowing renal calculus. Segments of the inferior vena cava and aorta visualized demonstrate no abnormality. Impression: 1. Coarse liver echotexture with lobulated contour which may represent cirrhotic changes. Recommend clinical correlation. Signed by: Dr. Pardeep Dolan MD on 06/27/2019 1:53 PM
[2019-06-27] MEDS: LEVOFLOXACIN 750MG/D5W 150ML 150 ML IV SCH (17:07)
--- NOTE | 2019-06-27 20:50 | Consultation ---
DATE OF CONSULTATION: 06/27/2019 REASON FOR CONSULT: Recurrent right pleural effusion. REQUESTED BY: Dr. Aleah Vieira. ELECTRICIAN SUPERVISOR AIRPLANE: Dr. Dm Ortiz. PRIMARY CARE PHYSICIAN: Dr. Farhat Abdalla. HISTORY OF PRESENT ILLNESS: I saw and evaluated this patient on June 27, 2019. She is a very nice 69-year-old lady, who has been having dyspnea over the last several months. She has been a heavy smoker and quit about 2 weeks ago. Until about 3 or 4 months ago, she did not have any symptoms and was taking no medications at home. Over the last several months, she has become increasingly dyspneic. She was admitted to the hospital with a chest x-ray showing near complete opacification of the right hemithorax. She has had several thoracentesis since that time, each draining approximately 1 L of straw-colored fluid. Cytology has been negative so far. The fluid is reaccumulating and surgical drainage with possible decortication and pleurodesis has been recommended for consideration. No PND or orthopnea. There is no history of cardiac problems. No history of coronary artery stenting or myocardial infarction. No fevers or chills. No history of stroke or TIA. She lives with her son. She is a . PAST MEDICAL HISTORY: Positive for gastroesophageal reflux. Positive smoking. MEDICATIONS: At home prior to these problems: None. ALLERGIES: PENICILLIN. SOCIAL HISTORY: No alcohol or IV drugs. Positive for smoking as above. Quit several weeks ago. FAMILY HISTORY: Negative for pulmonary disease or tuberculosis exposure. REVIEW OF SYSTEMS: GENERAL: Positive for fatigue and malaise. NEUROLOGIC: Negative for focal weakness in extremities or dysarthria. HEENT: Negative for decreased vision or decreased hearing. CARDIAC: Negative for chest pain or palpitations. PULMONARY: Positive shortness of breath as above. GI: No constipation or diarrhea. : Negative for hematuria or dysuria. ENDOCRINE: Negative polyuria or polydipsia. VASCULAR: Negative for claudication. SKIN: Negative for rashes or itching. HEMATOLOGIC: Negative for clotting or bleeding. INFECTIOUS: Negative for fevers or sweating. PSYCHIATRIC: Negative for depression. PHYSICAL EXAMINATION: GENERAL: Well-developed, well-nourished lady, sitting up in bed, in no apparent distress. VITAL SIGNS: Blood pressure 140/70, pulse 80 and regular, respirations 16 and unlabored. NECK: Supple. Nontender. No JVD. CARDIAC: Shows a regular rate and rhythm. There is a normal S1 and S2. There is no S3, S4, rub, or murmur. LUNGS: Decreased breath sounds at the right base. There are crackles and rhonchi on the right. The left lung field is clear to auscultation and percussion. ABDOMEN: Globally benign. Good bowel sounds. No hepatosplenomegaly. BACK: No CVA tenderness. No muscular spasm. EXTREMITIES: No cyanosis, clubbing, or edema. VASCULAR: Carotids 2+/2+ bilaterally. No carotid bruits. Radials and femorals 1+/2+ bilaterally. SKIN: No rashes or nonhealing ulcers. MUSCULOSKELETAL: Full range of motion at all joints. No joint swelling.. NEUROLOGIC: Cranial nerves 2 through 12 intact. Sensation intact to light touch and pinprick bilaterally. Strength 5/5 in all extremities. LYMPHATIC: Negative for cervical, clavicular, and femoral adenopathy. IMAGING: CT scan and chest x-ray were reviewed in the radiology suite. There is a persistent right pleural effusion. LABORATORY DATA: White count 12.07, hemoglobin 13.1, hematocrit 30.3, and platelet count 437,000. INR 0.88, PT 12.4, and PTT 29.0. Sodium 126, potassium 4.1, BUN 10, and creatinine 0.55. Liver function tests are somewhat elevated with AST 201, ALT 227, and alkaline phosphatase 119. Total protein 4.8 with albumin 1.8. IMPRESSION: Persistent and recurrent right pleural effusion. Etiology unclear. Thoracentesis have been non-diagnostic. I agree that thoracoscopy and drainage of the pleural effusion and possible pleurodesis is warranted. I described the operation to the patient. I told her that the risks of surgery would include , bleeding, infection, heart attack, stroke, pneumonia, prolonged ICU stay, persistent or recurrent pleural effusion, etc. I told her that about 20% to 30% of cases, the procedure would be nondiagnostic, but that this was the best way to proceed with trying to make diagnosis since the thoracentesis have not yield any answer as well. The patient stated that she understood, no further question and wanted to proceed. We will try to get the surgery done as soon as possible. Phillip V MD ISAIAS Lovell/VIVEK /[id number]
[2019-06-27 20:58] LABS: BASOPHILS # (AUTO) 0.1 (0.0-0.1); BASOPHILS % 0.5 % (0.0-1.0); EOSINOPHILS # (AUTO) 0.1 (0.0-0.4); EOSINOPHILS % 1.2 % (0.0-6.0); HEMATOCRIT 37.1 % (34.2-44.1); HEMOGLOBIN 12.4 g/dL (12.0-16.0); LYMPHOCYTES % 10.3 % (18.0-39.1); MEAN CORPUSCULAR HGB CONC 33.4 g/dL (31-35); MEAN CORPUSCULAR VOLUME 89.8 fL (81-99); MONOCYTES # (AUTO) 1.8 (0.2-0.8); MONOCYTES % 17.6 % (4.4-11.3); NEUTROPHILS % 69.9 % (38.7-80.0); PLATELET COUNT 431 x10e3/uL (140-360); RED BLOOD COUNT 4.13 x10e6/uL (3.6-5.1)
[2019-06-27 21:13] LABS: ANION GAP 9.9 mmol/L (8-16); BLOOD UREA NITROGEN 10 mg/dL (7-26); BUN/CREATININE RATIO 17 (6-25); CALCIUM 8.2 mg/dL (8.4-10.2); CARBON DIOXIDE 25 mmol/L (22-29); CHLORIDE 95 mmol/L (98-107); CREATININE, SERUM 0.58 mg/dL (0.57-1.11); EST GLOMERULAR FILTRATION RATE > 60 ML/MIN (60-); GLUCOSE 103 mg/dL (74-118); POTASSIUM 3.9 mmol/L (3.5-5.1); SODIUM 126 mmol/L (136-145)
[2019-06-27] MEDS: SODIUM CHLORIDE 0.9% 1000ML 1,000 ML IV SCH (22:45)
[2019-06-28] VITALS (7 sets, daily range): BP systolic 92–122; BP diastolic 57–70
[2019-06-28 05:17] LABS: ALANINE AMINOTRANSFERASE 290 IU/L (0-55); ALBUMIN 1.8 g/dL (3.5-5.0); ALBUMIN/GLOBULIN RATIO 0.6 (0.8-2.0); ALKALINE PHOSPHATASE 233 IU/L (40-150); BLOOD UREA NITROGEN 6 mg/dL (7-26); BUN/CREATININE RATIO 11 (6-25); CALCIUM 8.2 mg/dL (8.4-10.2); CARBON DIOXIDE 23 mmol/L (22-29); CHLORIDE 101 mmol/L (98-107); CREATININE, SERUM 0.55 mg/dL (0.57-1.11); EST GLOMERULAR FILTRATION RATE > 60 ML/MIN (60-); GLUCOSE 94 mg/dL (74-118); SODIUM 133 mmol/L (136-145)
--- NOTE | 2019-06-28 07:00 | NUR ---
Patient resting comfortably. No acute distress noted. Shift report given to oncoming nurse .
--- NOTE | 2019-06-28 13:03 | NUR ---
Pulmonary Medicine DATE 06/28/2019 SUBJECTIVE: NS at 70/hr ivf sodium is better 3 L/.min oxygen pt ate well REVIEW OF SYSTEMS: No headaches, no rash PHYSICAL EXAMINATION: VITAL SIGNS: vital signs noted, reviewed per the chart record. GENERAL: no acute distress, alert, calm, slightly anxious. HEENT: Normocephalic, atraumatic. NECK: Supple. Throat midline. LUNGS: Bilateral air entry, still diminished on right side. CARDIOVASCULAR: S1, S2. No murmurs, rubs, or gallops. ABDOMEN: Soft, nontender. EXTREMITIES: No clubbing. No cyanosis. no edema. INTEGUMENT: No rash. No purpura. LABORATORY DATA: Na 133, cr 0.56. wbc 10, hct 37 IMPRESSION AND PLAN: 1. Massive right-sided lymphocytic pleural effusion, most likely due to malignancy. Rule out mycobacterial infection or other etiologies. 2. Chronic smoker. 3. Acute community-acquired pneumonia. 4. Hyponatremia, possible SIADH. 5. Mild allergies. 6. Mild gastroesophageal reflux disease. Appreciate the thoracic surgery evaluation yesterday Consider VATS + decortication +/- tunnelled pleural catheter placement. TBA Follow up cytology. Unlikely to be diagnostic for infection. Less likely to be diagnostic for malignancy given the fluid age, and pathologist will likely need larger tissue. patient would symptomatically benefit from decortication, not just diagnostics. Abx per ID Thank you very much, Dr. Ortiz, for this consult. Please call for question
[2019-06-28] MEDS: SODIUM CHLORIDE 0.9% 1000ML 1,000 ML IV SCH (13:25)
--- NOTE | 2019-06-28 15:23 | Progress Note ---
DATE: SUBJECTIVE: Ms. Figueroa is doing better. There are no new complaints. LABORATORY DATA: Reviewed. PHYSICAL EXAMINATION: GENERAL: She is currently alert, oriented. VITAL SIGNS: Stable, afebrile. HEENT: She is not icteric. NECK: Supple. CHEST: Clear. COR: S1, S2. No murmurs. ABDOMEN: Soft. Bowel sounds present. No tenderness. No hepatosplenomegaly. EXTREMITIES: No edema. SKIN: No rash. LABORATORY DATA: White count is 9.97, hemoglobin 37. All her cultures remains negative. The patient was seen by cardiothoracic surgery. The patient to have a thoracoscopy procedure, concerned about malignancy, events noted. Continue with antibiotic as ordered till we get a definitive diagnosis. She is currently on Levaquin. MD KEENAN Lozoya/VIVEK /[id number]
[2019-06-28] MEDS: LEVOFLOXACIN 750MG/D5W 150ML 150 ML IV SCH (16:23)
--- NOTE | 2019-06-28 19:10 | NUR ---
report given to oncoming nurse, walking rounds compete, pt stable at this time.
--- NOTE | 2019-06-28 19:15 | NUR ---
Patient received sitting up in bed. AAO x 4. Patient had no complaints of pain. Respirations even and non-labored. IVF infusing at 70 cc/hr. Patient instructed to call for assistance when needed. Call light within reach.
[2019-06-29] VITALS (7 sets, daily range): BP systolic 102–125; BP diastolic 57–75
[2019-06-29] MEDS: SODIUM CHLORIDE 0.9% 1000ML 1,000 ML IV SCH ×2 (06:21→17:16)
--- NOTE | 2019-06-29 07:00 | NUR ---
Walking rounds done. Bedside report given to oncoming nurse regarding patient's status.
--- NOTE | 2019-06-29 12:41 | NUR ---
Pulmonary Medicine DATE 06/29/2019 SUBJECTIVE: NS IVF ongoing 3 L/min oxygen walked ate well REVIEW OF SYSTEMS: No headaches, no rash PHYSICAL EXAMINATION: VITAL SIGNS: vital signs noted, reviewed per the chart record. GENERAL: no acute distress, alert, calm, slightly anxious. HEENT: Normocephalic, atraumatic. NECK: Supple. Throat midline. LUNGS: Bilateral air entry, still diminished on right side. CARDIOVASCULAR: S1, S2. No murmurs, rubs, or gallops. ABDOMEN: Soft, nontender. EXTREMITIES: No clubbing. No cyanosis. no edema. INTEGUMENT: No rash. No purpura. LABORATORY DATA: no new updates IMPRESSION AND PLAN: 1. Massive right-sided lymphocytic pleural effusion, most likely due to malignancy. Rule out mycobacterial infection or other etiologies. 2. Chronic smoker. 3. Acute community-acquired pneumonia. 4. Hyponatremia, possible SIADH. 5. Mild allergies. 6. Mild gastroesophageal reflux disease. Consider VATS + decortication +/- tunnelled pleural catheter placement. TBA Tentative report that OR scheduled Sunday or Sunday Follow up cytology. Unlikely to be diagnostic for infection. Less likely to be diagnostic for malignancy given the fluid age, and pathologist will likely need larger tissue. patient would symptomatically benefit from decortication, not just diagnostics. Abx per ID Check AM BMP, follow sodium Thank you very much, Dr. Ortiz, for this consult. Please call for question
[2019-06-29] MEDS: LEVOFLOXACIN 750MG/D5W 150ML 150 ML IV SCH (16:27)
--- NOTE | 2019-06-29 18:12 | Progress Note ---
DATE: SUBJECTIVE: Ms. Figueroa is lying in bed, comfortable. Her son is at the bedside. Remains on oxygen. She is walking, but weak. REVIEW OF SYSTEMS: Just shortness of breath. PHYSICAL EXAMINATION: GENERAL: She is currently alert and oriented. VITAL SIGNS: Stable. Currently afebrile. HEENT: She is not icteric. NECK: Supple. CHEST: Few. HEART: S1 and S2. ABDOMEN: Soft. IMPRESSION: 1. Right side lymphocytic pleural effusion, concern malignancy, doubt infection. 2. Chronic smoker. 3. Community-acquired pneumonia, better. 4. Hyponatremia. PLAN: sent for Pathology. Recommend cardiovascular surgery is being consulted. Continue with antibiotic as ordered for now. We will await diagnosis. Discussed with the patient. MD KEENAN Lozoya/VIVEK /[id number]
--- NOTE | 2019-06-29 19:12 | Progress Note ---
DATE: 06/29/2019 REASON FOR PROGRESS NOTE: Right pleural effusion. PADDOCK JUDGE: Dr. Dm Ortiz. PRIMARY CARE PHYSICIAN: Dr. Farhat Abdalla. SUBJECTIVE: The patient is currently stable. Thoracoscopy and thoracotomy planned. Timing to be determined. Cannot be done over the as per administration. Shortness of breath is stable today. PHYSICAL EXAMINATION: CARDIAC: Regular rate and rhythm. Normal S1, S2. No S3 or S4. LUNGS: Decreased breath sounds at the right base. Crackles and rhonchi on the right, unchanged. Left lung field is still clear. NECK: Supple. Nontender. BACK: No CVA tenderness. No muscular spasm. EXTREMITIES: No cyanosis, clubbing, or edema. LABORATORY: Chest x-ray, unchanged. Sodium 132, potassium 4.0, BUN 6 with creatinine 0.5. IMPRESSION: Stable respiratory insufficiency. Timing of her surgery to be determined. Discussed with patient. MD ISAIAS Solitario/MODL /[id number]
--- NOTE | 2019-06-29 19:14 | NUR ---
walking rounds complete, pt stable, report given to on coming nurse.
[2019-06-29] MEDS: ACETAMINOPHEN 325 MG TAB PO PRN (21:14)
[2019-06-30] VITALS (10 sets, daily range): BP systolic 98–125; BP diastolic 49–70
[2019-06-30 05:44] LABS: ANION GAP 10.7 mmol/L (8-16); BLOOD UREA NITROGEN 8 mg/dL (7-26); BUN/CREATININE RATIO 15 (6-25); CARBON DIOXIDE 27 mmol/L (22-29); CHLORIDE 103 mmol/L (98-107); CREATININE, SERUM 0.55 mg/dL (0.57-1.11); EST GLOMERULAR FILTRATION RATE > 60 ML/MIN (60-); GLUCOSE 92 mg/dL (74-118); POTASSIUM 3.7 mmol/L (3.5-5.1); SODIUM 137 mmol/L (136-145)
[2019-06-30] MEDS: SODIUM CHLORIDE 0.9% 1000ML 1,000 ML IV SCH ×2 (06:57→21:38)
--- NOTE | 2019-06-30 07:14 | NUR ---
Bedside report and walking rounds. Patient in bed with call light within reach. No issues or concerns noted.
--- NOTE | 2019-06-30 09:40 | Progress Note ---
DATE: SUBJECTIVE: The patient is seen and evaluated. Available labs and notes reviewed. Discussed with Dr. Yee. REVIEW OF SYSTEMS: No nausea, vomiting, fever, chills, headache, rash, shortness of breath improved. No chest pain. OBJECTIVE: VITAL SIGNS: Temperature 97.3, pulse is 100, respirations 18, and blood pressure 125/70. MEDICATIONS: Reviewed. As far as Infectious Disease point of view, patient is on Levaquin. LABORATORY STUDIES: White count of 9.97, improved from 14.08, hemoglobin 12.4, platelet 431. Sodium 137, potassium 3.7, creatinine 0.55. SEROLOGY: Coronavirus PCR not detected on 06/24/2019. MICROBIOLOGY: Blood culture negative on 06/22. Throat culture, growth of a usual respiratory tamra on 06/22 and thoracentesis/pleural fluid culture 06/23 negative so far. RADIOLOGY STUDIES: No new radiology studies available. GENERAL: Alert and oriented, no acute distress. CV: S1 and S2. CHEST: Equal expansion. Clear to auscultation with decreased breath sounds. ABDOMEN: Soft, nontender. No distention. HEENT: Moist. No pallor. No JVD. EXTREMITIES: Moves all. No significant edema. ASSESSMENT AND PLAN: 1. Right-sided lymphocytic pleural effusion malignancy, most likely not infectious. 2. Chronic smoker. 3. Community-acquired pneumonia, improved overall. 4. Hyponatremia. 5. Shortness of breath, improved. 6. Leukocytosis, resolved. The patient is seen by Cardiothoracic Surgery. Timing of her surgery to be determined. Continue with Levaquin. We will follow with the results after the surgery. Please refer to chart for more information. Discussed with Dr. Yee in details. Dictated by Alfonso Little PA-C (Al) Zaid Yee MD /MODL /[id number]
--- NOTE | 2019-06-30 14:14 | NUR ---
Pulmonary Medicine DATE 06/30/2019 CORRECTED DATE SUBJECTIVE: Evita MARTINEZ Walked on oxygen by NC now REVIEW OF SYSTEMS: No headaches, no rash PHYSICAL EXAMINATION: VITAL SIGNS: vital signs noted, reviewed per the chart record. GENERAL: no acute distress, alert, calm, slightly anxious. HEENT: Normocephalic, atraumatic. NECK: Supple. Throat midline. LUNGS: Bilateral air entry, still diminished on right side. CARDIOVASCULAR: S1, S2. No murmurs, rubs, or gallops. ABDOMEN: Soft, nontender. EXTREMITIES: No clubbing. No cyanosis. no edema. INTEGUMENT: No rash. No purpura. LABORATORY DATA: Na 137, k 3.7, cr 0.56. IMPRESSION AND PLAN: 1. Massive right-sided lymphocytic pleural effusion, most likely due to malignancy. Rule out mycobacterial infection or other etiologies. 2. Chronic smoker. 3. Acute community-acquired pneumonia. 4. Hyponatremia, possible SIADH. Resolving 5. Mild allergies. 6. Mild gastroesophageal reflux disease. Follow with thoracic surgery team, tentative for surgery soon Consider VATS + decortication Follow up cytology. Unlikely to be diagnostic for infection. Less likely to be diagnostic for malignancy given the fluid age, and pathologist will likely need larger tissue. patient would symptomatically benefit from decortication, not just diagnostics. Abx per ID Thank you very much, Dr. Ortiz, for this consult. Please call for question
[2019-06-30] MEDS: SALINE 0.65% NAS SOLN 1 SPRAY BTL SCH ×2 (15:00→21:00)
--- NOTE | 2019-06-30 16:00 | NUR ---
DR. Dara HUGHES, PATIENT AND PATIENTS SON DISCUSSED AT BEDSIDE THE PROS AND CONS OF STAYING IN HOSPITAL UNTIL SURGERY. PATIENT AND FAMILY DECIDED TO STAY UNTIL SURGERY ON SUNDAY.
[2019-06-30] MEDS: LEVOFLOXACIN 750MG/D5W 150ML 150 ML IV SCH (17:40)
[2019-06-30] MEDS: ACETAMINOPHEN 325 MG TAB PO PRN (21:38)
[2019-07-01] VITALS (10 sets, daily range): BP systolic 109–122; BP diastolic 52–73
--- NOTE | 2019-07-01 06:57 | NUR ---
Bedside report and walking rounds completed with on coming nurse. Patient in bed with call light within reach. No issues or concerns noted.
[2019-07-01] MEDS: SALINE 0.65% NAS SOLN 1 SPRAY BTL SCH ×3 (08:56→22:32)
--- NOTE | 2019-07-01 10:53 | Progress Note ---
DATE: SUBJECTIVE: The patient is seen and evaluated. Available labs and notes reviewed. Discussed with Dr. Yee in details. REVIEW OF SYSTEMS: Still shortness of breath with exertion. Otherwise, no nausea, vomiting, fever, chills, chest pain, headache, or rash. No complications with antibiotics. MEDICATIONS: Medication list is reviewed. From ID point of view, the patient is on Levaquin. LABORATORY STUDIES: No new CBC or BMP. Serology; coronavirus PCR from 06/27 is pending. However, coronavirus PCR 06/24/2019, was negative. MICROBIOLOGY: No new microbiology studies available. PATHOLOGY: Pleural fluid from thoracentesis positive for malignancy, metastatic adenocarcinoma. RADIOLOGY STUDIES: No new radiology studies available. PHYSICAL EXAMINATION: VITAL SIGNS: Temperature is 97.4, pulse of 81, respirations 18, and blood pressure 122/70. GENERAL: Alert and oriented, on O2 supplement through nasal cannula. No acute distress. No significant shortness of breath. CV: S1-S2. CHEST: Equal expansion. LUNGS: Clear to auscultation with decreased breath sounds. ABDOMEN: Soft, obese, nontender. HEENT: Moist. No pallor. No JVD. EXTREMITIES: Moves all. No acute finding. No significant edema. ASSESSMENT AND PLAN: 1. Right-sided lymphocytic pleural effusion. Status post thoracentesis with pathology positive for malignancy. See above please. 2. Community-acquired pneumonia. 3. Shortness of breath. 4. Hyponatremia. 5. Chronic smoker. 6. Status post leukocytosis. 7. Continue with antibiotic at this point. Plan is for surgery, presumptive on . Discussed with Dr. Yee. Please refer to chart for more information. Dictated by Alfonso Little PA-C (Al) Zaid Yee MD /MODL /[id number]
--- NOTE | 2019-07-01 12:21 | NUR ---
Pulmonary Medicine DATE 07/01/2019 SUBJECTIVE: Eating IVF 100/hr 2 L/min oxygen nose congestion better pathology from cytology of pleural fluid reported REVIEW OF SYSTEMS: No headaches, no rash PHYSICAL EXAMINATION: VITAL SIGNS: vital signs noted, reviewed per the chart record. GENERAL: no acute distress, alert, calm, slightly anxious. HEENT: Normocephalic, atraumatic. NECK: Supple. Throat midline. LUNGS: Bilateral air entry, still diminished on right side. CARDIOVASCULAR: S1, S2. No murmurs, rubs, or gallops. ABDOMEN: Soft, nontender. EXTREMITIES: No clubbing. No cyanosis. no edema. INTEGUMENT: No rash. No purpura. LABORATORY DATA: Na 137, k 3.7, cr 0.56. IMPRESSION AND PLAN: 1. Massive right-sided lymphocytic pleural effusion, malignancy related Epithelial cell origin NOS, based on cell markers. ?lung cancer ?other 2. Chronic smoker. 3. Acute community-acquired pneumonia. 4. Hyponatremia, possible SIADH. Resolving 5. Mild allergies. 6. Mild gastroesophageal reflux disease. 7. elevated lfts Follow with thoracic surgery team, tentative for surgery soon Consider VATS + decortication Pathologist will likely need larger/various tissue samples. patient would symptomatically benefit from decortication. Abx per ID Thank you very much, Dr. Ortiz, for this consult. Please call for question
[2019-07-01] MEDS: SODIUM CHLORIDE 0.9% 1000ML 1,000 ML IV SCH (13:29)
[2019-07-01] MEDS: ALBUTEROL/IPRATROPIUM 3 ML NEB NEB PRN (14:00)
--- NOTE | 2019-07-01 16:22 | NUR ---
Nutrition Intervention Note RD Recommendation(s) for Physician: -Continue Regular diet -Ensure Compact BID for added nutrition Plan of Care: RD following, monitoring for tolerance and adequacy Nutrition reason for involvement: Follow up RD Assessment 06/30: Follow up. Pt discussed during am MDR, surgery pending . 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 Pt reports good appetite and po intake, noted 75-100% meal intake per chart. Pt denies any GI distress. Pt with no nutrition related questions or concerns at time of visit. Will continue to monitor. (06/25/19) Pt is a 69 year old female admitted with pneumonia. Pt stated her appetite was down and eating < 50% for the past 2 weeks, but her appetite has improved today. Pt stated she ate all of her breakfast and lunch today. Pt also mentioned she had lost weight and had weighed 166 lbs 2 weeks ago. Pt currently has a weight of 162 lbs in chart; therefore, this would be a 2% weight loss in 2 weeks. Pt was interested in a nutrition supplement. Recommend Ensure Compact BID for added nutrition. Will continue to monitor. Principal Problems/Diagnoses: pneumonia PMH: none GI: LBM 06/30 x 3 Skin: no pressure ulcer or wounds Labs: 06/29: Na 137, K 3.7, BUN 8, Cr 0.55, Gluc 92, Ca 8 Meds: zofran, abx IVF: NS at 70 ml/hr Ht: 63 inches Wt: 148.5 lb (06/30)- questionable wt change, 162 lbs (06/24) BMI: 28.7 kg/m2 IBW: 115 lbs Malnutrition Evaluation (06/25/19) The patient does not meet criteria for a specified degree of malnutrition at this time. Will re-evaluate at follow-up as appropriate. Nutrition Prescription (Diet Order): Regular diet Estimated Nutritional Needs: 6626-7525 calories/day (18-20 kcal/kg CBW) 74-110 g protein/day (1-1.5 g pro/kg CBW) Diet Adequacy: pt was not meeting calorie or protein needs prior to admission, but reports her appetite has improved today and stated she consumed all of her breakfast and lunch Tolerance: Tolerating PO Diet Education Needs Assessment: Diet education not indicated Nutrition Care Level: low Nutrition Diagnosis: Unintended weight loss related to decreased ability to consume sufficient energy secondary to decreased appetite as evidenced by 2% weight loss in 2 weeks. Goal: Patient will meet 75-100% of estimated needs by follow up Progress: progressing Interventions: -General healthful diet, Commercial beverage, Recommended Modifications Monitoring/Evaluation: -Total energy intake, Total protein intake, Liquid supplement, Weight change Signed: Anabell Mcintosh RD, [place], [facility]
[2019-07-01] MEDS: LEVOFLOXACIN 750MG/D5W 150ML 150 ML IV SCH (17:32)
--- NOTE | 2019-07-01 19:06 | NUR ---
Bedside shift report received from Day RN.Pt is alert and oriented x3. o2 on per n/c 4l. Respirations are even and unlabored. Pt denies pain. Lung surgery pending for . Neb tx prn. PIV NS at 70 ml/hr. Call light within reach. Bed in low position.
--- NOTE | 2019-07-01 20:07 | Progress Note ---
DATE: 07/01/2019 REASON FOR PROGRESS NOTE: Right pleural effusion. SKEIN TIER: Dr. Dm Ortiz. PRIMARY CARE PHYSICIAN: Dr. Farhat Abdalla. SUBJECTIVE: The patient is currently stable. Timing of thoracoscopy and thoracotomy being determined; hopefully on . Shortness of breath is stable. PHYSICAL EXAMINATION: CARDIAC: Regular rate and rhythm. Normal S1 and S2. No rub or murmur. LUNGS: Decreased breath sounds at the right base. Left lung field is clear. NECK: Supple and nontender. BACK: No CVA tenderness. No muscular spasm. EXTREMITIES: No cyanosis, clubbing, or edema. LABORATORIES: Sodium 137, potassium 3.7, creatinine 0.55, and BUN is 8. LFTs are mildly elevated at AST 225, ALT 290, and alkaline phosphatase 233. No new imaging studies. IMPRESSION: Stable dyspnea and persistent right pleural effusion. We are trying to arrange thoracoscopy for . MD ISAIAS Solitario/MODL /[id number]
[2019-07-02] VITALS (7 sets, daily range): BP systolic 109–133; BP diastolic 61–70
[2019-07-02] MEDS: SODIUM CHLORIDE 0.9% 1000ML 1,000 ML IV SCH ×2 (01:27→17:18)
[2019-07-02] MEDS: ALBUTEROL/IPRATROPIUM 3 ML NEB NEB PRN (07:35)
[2019-07-02] MEDS: SALINE 0.65% NAS SOLN 1 SPRAY BTL SCH ×3 (09:00→21:15)
--- NOTE | 2019-07-02 11:34 | Progress Note ---
DATE: SUBJECTIVE: The patient is seen and evaluated. Available labs and notes reviewed. Discussed with staff. REVIEW OF SYSTEMS: Improved shortness of breath. However, still gets shortness of breath especially when she ambulates to the bathroom and back. Remains on O2 nasal cannula. No vomiting. No fever. No chills. No headache. No rash. PHYSICAL EXAMINATION: VITAL SIGNS: Temperature 98.1 with a maximum temperature of 99.6 last night at midnight and this morning at 8 o'clock. Pulse 95, respiration 18, and blood pressure 117/70. GENERAL: Alert and oriented, no acute distress on O2 nasal cannula. CV: S1, S2. CHEST: Equal expansion. Decreased breath sounds. No acute distress. ABDOMEN: Soft, nontender. No distention. HEENT: Moist. No pallor. No JVD. EXTREMITIES: Moves all. Trace edema. MEDICATIONS: Medication list reviewed. As far as Infectious Disease point of view, the patient is on Levaquin. LABORATORY STUDIES: No new CBC or BMP available. Serology: Coronavirus PCR not detected on 06/23 or 06/27. MICROBIOLOGY: Blood culture, throat culture and thoracentesis culture all negative so far. ASSESSMENT AND PLAN: 1. Lymphocytic pleural effusion on the right side, status post thoracentesis. Pathology consistent with malignancy. 2. Community-acquired pneumonia. 3. Shortness of breath, multifactorial. 4. Electrolyte abnormalities. 5. Chronic smoker. 6. Leukocytosis, resolved. 7. Continue with antibiotic. Await surgery presumptive tomorrow. Monitor the patient in the clinic. Follow with the labs. Clinically, no acute distress, PT/OT as recommended. Discussed with Dr. Yee in details. Please refer to chart for more information. MD KEENAN Lozoya/MODAaron /[id number]
--- NOTE | 2019-07-02 12:00 | Diagnostic Imaging Report ---
EXAMINATION: CHEST 2 VIEWS INDICATION: Pleural effusion COMPARISON: Chest CT 06/26/2019 FINDINGS: LINES/TUBES:None LUNGS:The left lung is well-inflated. Right lung volume is low. Right basilar patchy opacity. PLEURA:Large right pleural effusion. No pneumothorax. MEDIASTINUM:The cardiomediastinal silhouette appears unchanged in size and shape. BONES/SOFT TISSUES:No acute osseous injury. ABDOMEN:No free air under the diaphragm. IMPRESSION: Large right pleural effusion. Right basilar patchy opacity, most likely atelectasis. Signed by: Fernando Moreira MD on 07/02/2019 11:57 AM
--- NOTE | 2019-07-02 13:36 | NUR ---
Pulmonary Medicine DATE 07/02/2019 SUBJECTIVE: 2 L/min oxgyen eating walked, no dizziness REVIEW OF SYSTEMS: No headaches, no rash PHYSICAL EXAMINATION: VITAL SIGNS: vital signs noted, reviewed per the chart record. GENERAL: no acute distress, alert, calm, slightly anxious. HEENT: Normocephalic, atraumatic. NECK: Supple. Throat midline. LUNGS: Bilateral air entry, still diminished on right side. CARDIOVASCULAR: S1, S2. No murmurs, rubs, or gallops. ABDOMEN: Soft, nontender. EXTREMITIES: No clubbing. No cyanosis. no edema. INTEGUMENT: No rash. No purpura. LABORATORY DATA: no new updates IMPRESSION AND PLAN: 1. Massive right-sided lymphocytic pleural effusion, malignancy related Epithelial cell origin NOS, based on cell markers. ?lung cancer ?other 2. Chronic smoker. 3. Acute community-acquired pneumonia. 4. Hyponatremia, possible SIADH. Resolving 5. Mild allergies. 6. Mild gastroesophageal reflux disease. 7. elevated lfts Follow with thoracic surgery team, tentative for surgery tomorrow Consider VATS + decortication Pathologist will likely need larger/various tissue samples. patient would symptomatically benefit from decortication. Abx per ID Thank you very much, Dr. Ortiz, for this consult. Please call for question
--- NOTE | 2019-07-02 17:06 | Progress Note ---
DATE: 07/02/2019 REASON FOR PROGRESS NOTE: Right pleural effusion. COLLISION MECHANIC: Dr. Dm Ortiz. PRIMARY CARE PHYSICIAN: Dr. Farhat Abdalla. SUBJECTIVE: The patient is currently stable. We are attempting to schedule thoracoscopy and possible thoracotomy for tomorrow. Shortness of breath is stable. PHYSICAL EXAMINATION: GENERAL: Sitting up in bed, breathing comfortably. CARDIAC: Regular rate and rhythm. Normal S1, S2. No rub or murmur. LUNGS: Decreased breath sounds at the right base. Left lung field is clear. NECK: Supple. Nontender. BACK: No CVA tenderness. No muscular spasm. EXTREMITIES: No cyanosis, clubbing, or edema. LABORATORY DATA: None obtained since yesterday. IMPRESSION: Probable operation tomorrow. I described the operation to the patient, who is here by herself. I also spoke with her son. I told them that the procedure would be a thoracoscopy on the right with possible thoracotomy if there is scarring. Plan is for drainage of the pleural effusion, likely pleural biopsy, and decortication if warranted as well as any other warranted procedures. I told them that the risks of surgery would include , bleeding, infection, heart attack, stroke, pneumonia, prolonged ICU stay, mechanical ventilation, tracheostomy, possibility of a nondiagnostic procedure which I estimated 20-30%, etc. The patient and her son each stated that they understood, no further questions, and wanted to proceed. MD ISAIAS Solitario/VIVEK /[id number]
[2019-07-02] MEDS: LEVOFLOXACIN 500 MG TAB PO SCH (17:18)
[2019-07-03] VITALS (8 sets, daily range): BP systolic 115–127; BP diastolic 56–79
[2019-07-03 05:44] LABS: BASOPHILS # (AUTO) 0.1 (0.0-0.1); BASOPHILS % 0.6 % (0.0-1.0); EOSINOPHILS # (AUTO) 0.2 (0.0-0.4); EOSINOPHILS % 1.8 % (0.0-6.0); HEMATOCRIT 33.1 % (34.2-44.1); HEMOGLOBIN 10.8 g/dL (12.0-16.0); LYMPHOCYTES # (AUTO) 1.3 (1.0-3.2); MEAN CORPUSCULAR HEMOGLOBIN 30.1 pg (28-32); MEAN CORPUSCULAR HGB CONC 32.6 g/dL (31-35); MEAN CORPUSCULAR VOLUME 92.2 fL (81-99); MONOCYTES # (AUTO) 1.3 (0.2-0.8); MONOCYTES % 12.8 % (4.4-11.3); NEUTROPHILS % 71.3 % (38.7-80.0); PLATELET COUNT 538 x10e3/uL (140-360); RED BLOOD COUNT 3.59 x10e6/uL (3.6-5.1); RED CELL DISTRIBUTION WIDTH 13.1 % (11.7-14.4)
[2019-07-03] MEDS: SODIUM CHLORIDE 0.9% 1000ML 1,000 ML IV SCH ×2 (05:51→21:00)
[2019-07-03 06:09] LABS: ANION GAP 10.7 mmol/L (8-16); BLOOD UREA NITROGEN 10 mg/dL (7-26); BUN/CREATININE RATIO 19 (6-25); CALCIUM 8.4 mg/dL (8.4-10.2); CARBON DIOXIDE 26 mmol/L (22-29); CHLORIDE 104 mmol/L (98-107); CREATININE, SERUM 0.53 mg/dL (0.57-1.11); EST GLOMERULAR FILTRATION RATE > 60 ML/MIN (60-); GLUCOSE 92 mg/dL (74-118); POTASSIUM 3.7 mmol/L (3.5-5.1); SODIUM 137 mmol/L (136-145)
[2019-07-03] MEDS: ALBUTEROL/IPRATROPIUM 3 ML NEB NEB PRN ×2 (07:40→19:25)
[2019-07-03] MEDS: SALINE 0.65% NAS SOLN 1 SPRAY BTL SCH ×3 (09:00→21:00)
--- NOTE | 2019-07-03 11:29 | Progress Note ---
DATE: SUBJECTIVE: The patient is seen and evaluated. Available labs and notes reviewed. Discussed with Dr. Yee. Please refer to chart for more information. REVIEW OF SYSTEMS: No nausea, vomiting, fever, chills, chest pain, headache, or rash. Shortness of breath, no significant change. PHYSICAL EXAMINATION: VITAL SIGNS: Temperature is 98.1, pulse 89, respiration 18, and blood pressure 127/73. GENERAL: Alert and oriented, no acute distress. CV: S1 and S2. CHEST: Equal expansion. Decreased breath sounds, more on the right. ABDOMEN: Soft and nontender. No distention. HEENT: Moist. No pallor. No JVD. EXTREMITIES: Moves all. No cyanosis. MEDICATIONS: Medication list reviewed. From Infectious Disease point of view, the patient remains on Levaquin. LABORATORY STUDIES: White count of 9.8, hemoglobin 10.8, and platelet 538. Sodium 137, potassium 3.7, and creatinine 0.53. Serology; no new serology available. MICROBIOLOGY: No new microbiology available. RADIOLOGY STUDIES: Chest x-ray from yesterday 07/01, showed large right pleural effusion. Right basilar opacity, patchy opacity most likely atelectasis. ASSESSMENT AND PLAN: 1. Lymphocytic pleural effusion on the right side, status post thoracentesis. Pathology consistent with malignancy. Plan for surgical procedure by Cardiovascular Surgery today at 2:30 in the afternoon. 2. Community-acquired pneumonia. 3. Shortness of breath, multifactorial. 4. Chronic smoker. 5. Leukocytosis, resolved. 6. Anemia. 7. Electrolyte abnormalities. 8. Await surgery today. Continue with antibiotics. Follow with findings of a surgery. Continue with PT/OT as much as appropriate. Further management of this patient is based on daily findings on laboratory and physical examination. Dictated by Alfonso Little PA-C (Al) Zaid Yee MD /MODL /[id number]
--- NOTE | 2019-07-03 12:14 | NUR ---
Pulmonary Medicine DATE 07/03/2019 SUBJECTIVE: 2 L/min oxygen NC delivery IVF 70/hr walked, not dizzy REVIEW OF SYSTEMS: No headaches, no rash PHYSICAL EXAMINATION: VITAL SIGNS: vital signs noted, reviewed per the chart record. GENERAL: no acute distress, alert, calm, slightly anxious. HEENT: Normocephalic, atraumatic. NECK: Supple. Throat midline. LUNGS: Bilateral air entry, mild decreased BS at bases CARDIOVASCULAR: S1, S2. No murmurs, rubs, or gallops. ABDOMEN: Soft, nontender. EXTREMITIES: No clubbing. No cyanosis. no edema. INTEGUMENT: No rash. No purpura. LABORATORY DATA: no new updates IMPRESSION AND PLAN: 1. Massive right-sided lymphocytic pleural effusion, malignancy related Epithelial cell origin NOS, based on cell markers. ?lung cancer ?other 2. Chronic smoker. 3. Acute community-acquired pneumonia. 4. Hyponatremia, possible SIADH. Resolving 5. Mild allergies. 6. Mild gastroesophageal reflux disease. 7. elevated lfts Follow with thoracic surgery team, for surgery today Consider VATS + decortication Pathologist will likely need larger/various tissue samples. patient would symptomatically benefit from decortication. Abx per ID Thank you very much, Dr. Ortiz, for this consult. Please call for question
[2019-07-03] MEDS ORDERED: HEPARIN SOD/SOD CHLORIDE 1,000 ML ONE (12:44)
[2019-07-03] MEDS: LEVOFLOXACIN 500 MG TAB PO SCH (16:28)
--- NOTE | 2019-07-03 19:25 | NUR ---
BEDSIDE SHIFT REPORT RECEIVED. PATIENT RESTING IN BED, RESP EVEN AND UNLABORED. NO DISTRESS NOTED. CALL LIGHT WITH IN EASY REACH. INSTRUCTED PT TO USE CALL LIGHT FOR ALL THE NEEDS. BED IS LOW/LOCKED. SIDE RAILS X2. PT DENIES NEEDS AT THIS TIME. CONTINUE TO MONITOR CLOSELY
[2019-07-04] VITALS (8 sets, daily range): BP systolic 112–136; BP diastolic 56–88
--- NOTE | 2019-07-04 01:38 | Progress Note ---
DATE: 07/03/2019 REASON FOR PROGRESS NOTE: Right pleural effusion. REQUESTED BY: Jose Ortiz MD. SUBJECTIVE: The patient is sitting up in bed and breathing comfortably. Thoracoscopy cancelled for today because of scheduling and lack of OR time. REVIEW OF SYSTEMS: CARDIAC: Negative for chest pain. PULMONARY: Positive for stable shortness of breath. GI: No diarrhea or constipation. : Negative for dysuria. PHYSICAL EXAMINATION: GENERAL: A well-developed, well-nourished lady, sitting in bed, slightly short of breath. VITAL SIGNS: Blood pressure 130/75, pulse 80 and regular, and respirations 16, nonlabored. NECK: Supple and nontender. No JVD. CARDIAC: Regular rate and rhythm with normal S1, S2. No rub or murmur. LUNGS: Decreased breath sounds at the right base. Left lung field is clear. EXTREMITIES: No cyanosis, clubbing, or edema. LABORATORY AND IMAGING DATA: Chest x-ray shows a somewhat larger effusion on the right. No effusion on the left. White count 9.8, hemoglobin 10.8, hematocrit 33.1, platelet count of 538,000. Sodium 137, potassium 3.7, BUN is 10 with creatinine 0.53. IMPRESSION: Somewhat increased pleural effusion. Scheduling the OR discussed with the patient, the patient's son, Dr. Vieira, and Dr. Ortiz. We will add her on OR schedule again for tomorrow, and if that is not possible, plan will be for Sunday. MD ISAIAS Solitario/MODL /[id number]
[2019-07-04 05:15] LABS: BASOPHILS # (AUTO) 0.1 (0.0-0.1); BASOPHILS % 0.7 % (0.0-1.0); EOSINOPHILS # (AUTO) 0.1 (0.0-0.4); EOSINOPHILS % 1.3 % (0.0-6.0); HEMATOCRIT 31.7 % (34.2-44.1); HEMOGLOBIN 10.6 g/dL (12.0-16.0); LYMPHOCYTES # (AUTO) 1.1 (1.0-3.2); LYMPHOCYTES % 12.6 % (18.0-39.1); MEAN CORPUSCULAR HEMOGLOBIN 31.4 pg (28-32); MEAN CORPUSCULAR HGB CONC 33.4 g/dL (31-35); MEAN CORPUSCULAR VOLUME 93.8 fL (81-99); MONOCYTES # (AUTO) 1.1 (0.2-0.8); MONOCYTES % 12.4 % (4.4-11.3); NEUTROPHILS # (AUTO) 6.6 (2.1-6.9); NEUTROPHILS % 72.6 % (38.7-80.0); PLATELET COUNT 537 x10e3/uL (140-360); RED BLOOD COUNT 3.38 x10e6/uL (3.6-5.1)
[2019-07-04 05:31] LABS: ALANINE AMINOTRANSFERASE 208 IU/L (0-55); ALBUMIN 1.7 g/dL (3.5-5.0); ALBUMIN/GLOBULIN RATIO 0.5 (0.8-2.0); ALKALINE PHOSPHATASE 392 IU/L (40-150); ANION GAP 12.7 mmol/L (8-16); BLOOD UREA NITROGEN 11 mg/dL (7-26); BUN/CREATININE RATIO 21 (6-25); CALCIUM 7.9 mg/dL (8.4-10.2); CARBON DIOXIDE 24 mmol/L (22-29); CHLORIDE 103 mmol/L (98-107); CREATININE, SERUM 0.53 mg/dL (0.57-1.11); EST GLOMERULAR FILTRATION RATE > 60 ML/MIN (60-); GLUCOSE 96 mg/dL (74-118); MAGNESIUM 1.9 MG/DL (1.3-2.1); PHOSPHORUS 3.2 MG/DL (2.3-4.7); POTASSIUM 3.7 mmol/L (3.5-5.1); SODIUM 136 mmol/L (136-145)
[2019-07-04] MEDS: ALBUTEROL/IPRATROPIUM 3 ML NEB NEB PRN ×3 (06:50→19:10)
--- NOTE | 2019-07-04 08:16 | Diagnostic Imaging Report ---
EXAMINATION: CHEST SINGLE (PORTABLE) INDICATION: Pleural effusion COMPARISON: Chest radiograph 07/02/2019 FINDINGS: LINES/TUBES:None LUNGS:The left lung is moderately inflated. Right lung volume is low. Right basilar patchy opacity silhouettes the right hemidiaphragm. PLEURA:Large right pleural effusion. No pneumothorax. MEDIASTINUM:The cardiomediastinal silhouette appears unchanged in size and shape. BONES/SOFT TISSUES:No acute osseous injury. ABDOMEN:No free air under the diaphragm. IMPRESSION: Unchanged appearance of large right pleural effusion and right basilar opacity, most likely atelectasis. Signed by: Fernando Moreira MD on 07/04/2019 8:13 AM
[2019-07-04] MEDS: SALINE 0.65% NAS SOLN 1 SPRAY BTL SCH ×3 (09:08→20:46)
--- NOTE | 2019-07-04 09:43 | NUR ---
The pt. is maintained n p o for procedure since 0600 and denies pain or discomfort at this time.
[2019-07-04] MEDS: SODIUM CHLORIDE 0.9% 1000ML 1,000 ML IV SCH (11:03)
--- NOTE | 2019-07-04 12:15 | Progress Note ---
DATE: SUBJECTIVE: The patient is seen and evaluated. Available labs and notes reviewed. Discussed with the nurse. Uneventful night. REVIEW OF SYSTEMS: No nausea, vomiting, fever, or chills. There is no chest pain, but shortness of breath has improved. The patient also complains that it is getting depressing in here awaiting for her surgery. Other than that, no new complaints. PHYSICAL EXAMINATION: VITAL SIGNS: Temperature is 97.9, pulse is 91, respiration 19, and blood pressure 128/62. Temperature reviewed, the patient remains afebrile. GENERAL: Alert and oriented, very pleasant, and seems like still some shortness of breath. Remains on O2 nasal cannula. CV: S1 and S2. CHEST: Equal expansion. Decreased breath sounds on the right side. ABDOMEN: Soft and nontender. No distention. HEENT: Moist. No pallor. No JVD. EXTREMITIES: Moves all. No significant edema. MEDICATION/ANTIBIOTICS: Reviewed. From Infectious Disease point of view, the patient remains on Levaquin. LABORATORY STUDIES: White count 9.08, 10.6, and platelet 532. Sodium 136, potassium 3.7, and creatinine 0.53. Serology; no new serology available. Coronavirus PCR was not detected on 06/23 and 06/27. Influenza type A and B antigen and group A strep screens were negative on 06/23/2019. MICROBIOLOGY: Blood culture 06/22, negative. Throat culture 06/22, negative. Body fluid for thoracentesis was negative after 5 days on 06/24/2019. ASSESSMENT AND PLAN: 1. Lymphocytic pleural effusion on the right side, status post thoracentesis with culture negative. The patient remains on Levaquin. Plan is to get surgery by Cardiothoracic team yesterday, however, had some scheduling complications and it was not done. The plan is to get the surgery done today. 2. Community-acquired pneumonia. 3. Shortness of breath, multifactorial, but overall seems better. 4. Leukocytosis, resolved. 5. Electrolyte abnormalities. 6. Anemia. 7. The patient is a chronic smoker. Continue with antibiotics. Encourage smoking cessation. Await surgery. Follow with pathology and cultures and workup after the surgery. Remains afebrile, in no acute distress. Discussed with Dr. Yee. Please refer to chart for more information. Dictated by Alfonso Little PA-C (Al) MD AURA Lozoya/VIVEK /[id number]
--- NOTE | 2019-07-04 12:22 | NUR ---
Pulmonary Medicine DATE 07/04/2019 SUBJECTIVE: NS at 70/hr ivf 2 L/min oxygen BM+ ate some yesterday, no problems. surgery was deferred due to emergency REVIEW OF SYSTEMS: No headaches, no rash PHYSICAL EXAMINATION: VITAL SIGNS: vital signs noted, reviewed per the chart record. GENERAL: no acute distress, alert, calm HEENT: Normocephalic, atraumatic. NECK: Supple. Throat midline. LUNGS: Bilateral air entry, mild decreased BS at bases CARDIOVASCULAR: S1, S2. No murmurs, rubs, or gallops. ABDOMEN: Soft, nontender. EXTREMITIES: No clubbing. No cyanosis. no edema. INTEGUMENT: No rash. No purpura. LABORATORY DATA: no new updates IMPRESSION AND PLAN: 1. Massive right-sided lymphocytic pleural effusion, malignancy related Epithelial cell origin NOS, based on cell markers. ?lung cancer ?other 2. Chronic smoker. 3. Acute community-acquired pneumonia. 4. Hyponatremia, possible SIADH. Resolving 5. Mild allergies. 6. Mild gastroesophageal reflux disease. 7. elevated lfts Follow with thoracic surgery team, attempting to coordinate surgery Considering VATS + decortication Pathologist will likely need larger/various tissue samples. patient would symptomatically benefit from decortication. Abx per ID Thank you very much, Dr. Ortiz, for this consult. Please call for question
--- NOTE | 2019-07-04 13:41 | NUR ---
I spoke with the O R scheduling nurse and was advised that Dr. Solares is unable to perform the procedure today and can"t do the procedure until Sunday. The pt. and family made aware.
--- NOTE | 2019-07-04 14:00 | NUR ---
The pt's son request an audience with management and I relayed the message to Nurse [employer]. Addendum: 07/04/19 at 1403 by Anahi Jennings RN A call was placed to Dr. Ortiz as well.
--- NOTE | 2019-07-04 14:16 | NUR ---
DR. Dm Ortiz returned the call and stated that the problem is that there is no ICU bed available until or but Dr. Lovell is willing to take the pt. downtown to do the procedure if that is what they desire.
[2019-07-04] MEDS: LEVOFLOXACIN 500 MG TAB PO SCH (16:48)
--- NOTE | 2019-07-04 19:11 | NUR ---
Report to oncoming nurse.
[2019-07-04] MEDS: ACETAMINOPHEN 325 MG TAB PO PRN (20:47)
[2019-07-05] VITALS (8 sets, daily range): BP systolic 102–137; BP diastolic 56–80
[2019-07-05] MEDS: SODIUM CHLORIDE 0.9% 1000ML 1,000 ML IV SCH (01:21)
[2019-07-05 05:37] LABS: BASOPHILS # (AUTO) 0.1 (0.0-0.1); BASOPHILS % 0.6 % (0.0-1.0); EOSINOPHILS # (AUTO) 0.2 (0.0-0.4); EOSINOPHILS % 1.7 % (0.0-6.0); HEMATOCRIT 32.4 % (34.2-44.1); HEMOGLOBIN 10.7 g/dL (12.0-16.0); LYMPHOCYTES # (AUTO) 1.2 (1.0-3.2); LYMPHOCYTES % 11.2 % (18.0-39.1); MEAN CORPUSCULAR VOLUME 90.8 fL (81-99); MONOCYTES # (AUTO) 1.3 (0.2-0.8); MONOCYTES % 11.9 % (4.4-11.3); NEUTROPHILS % 74.2 % (38.7-80.0); PLATELET COUNT 579 x10e3/uL (140-360); RED BLOOD COUNT 3.57 x10e6/uL (3.6-5.1); RED CELL DISTRIBUTION WIDTH 13.1 % (11.7-14.4)
[2019-07-05 05:53] LABS: ALANINE AMINOTRANSFERASE 160 IU/L (0-55); ALBUMIN 1.7 g/dL (3.5-5.0); ALBUMIN/GLOBULIN RATIO 0.5 (0.8-2.0); ALKALINE PHOSPHATASE 379 IU/L (40-150); ANION GAP 12.6 mmol/L (8-16); BLOOD UREA NITROGEN 10 mg/dL (7-26); BUN/CREATININE RATIO 20 (6-25); CALCIUM 8.1 mg/dL (8.4-10.2); CARBON DIOXIDE 23 mmol/L (22-29); CHLORIDE 105 mmol/L (98-107); EST GLOMERULAR FILTRATION RATE > 60 ML/MIN (60-); GLUCOSE 106 mg/dL (74-118); POTASSIUM 3.6 mmol/L (3.5-5.1); SODIUM 137 mmol/L (136-145)
--- NOTE | 2019-07-05 07:53 | NUR ---
The pt. called to report that she needs a breathing treatment because she feels like she can't catch her breath. Upon arrival to the room found the pt. with elevated hr and RT was called for breathing treatment. The pt continues with heart rate fluctuating from 180's 200's then 50's 60's. Dr. Vieira was notified and rapid response was called and the pt. is in s v t. The pt. was given adenosine by ER and the pt. converted to sinus tachycardia. At this time she was given cardiazem by rapid response staff. V/s 97.2 181 16 102/76. Next set vitals 115/78 101 17,then 108 61. Tele monitor ordered and placed 99% 97.4 93 105/67.
[2019-07-05] MEDS ORDERED: DILTIAZEM HCL VIAL 5 ML ONE (08:18)
[2019-07-05] MEDS ORDERED: ASPIRIN 81 MG CHEW TAB PO ONE (08:45)
[2019-07-05] MEDS: SALINE 0.65% NAS SOLN 1 SPRAY BTL SCH ×3 (09:00→21:00)
[2019-07-05] MEDS ORDERED: METOPROLOL TARTRATE INJ 1 MG/ML VIAL IV PRN (09:00)
--- NOTE | 2019-07-05 09:30 | NUR ---
The pt. currently has no further comp of dyspnea or palpitations 97.4 91 101/65 19 97% o2 sat. The son is at the bedside.
[2019-07-05 12:26] LABS: CREATINE KINASE MB 1.9 ng/mL (0-5.0)
[2019-07-05] MEDS ORDERED: LORAZEPAM 0.5 MG TAB PO PRN (12:30)
[2019-07-05] MEDS ORDERED: FUROSEMIDE INJ 10 MG/ML 4 ML VIAL IV NR (12:30)
--- NOTE | 2019-07-05 17:19 | NUR ---
Pulmonary Medicine DATE 07/05/2019 SUBJECTIVE: off IVF now 3 L/min oxygen patient with some tachycardia. found to be SVT, s/p adenosine. occurred after walking GARCIA dizzy REVIEW OF SYSTEMS: No headaches, no rash PHYSICAL EXAMINATION: VITAL SIGNS: vital signs noted, reviewed per the chart record. GENERAL: no acute distress, alert, calm HEENT: Normocephalic, atraumatic. NECK: Supple. Throat midline. LUNGS: Bilateral air entry, mild decreased BS at bases CARDIOVASCULAR: S1, S2. No murmurs, rubs, or gallops. ABDOMEN: Soft, nontender. EXTREMITIES: No clubbing. No cyanosis. no edema. INTEGUMENT: No rash. No purpura. LABORATORY DATA: no new updates IMPRESSION AND PLAN: 1. Massive right-sided lymphocytic pleural effusion, malignancy related Epithelial cell origin NOS, based on cell markers. ?lung cancer ?other 2. Chronic smoker. 3. Acute community-acquired pneumonia. 4. Hyponatremia, possible SIADH. Resolving 5. Mild allergies. 6. Mild gastroesophageal reflux disease. 7. elevated lfts Follow with thoracic surgery team, attempting to coordinate surgery Considering VATS + decortication patient would symptomatically benefit from decortication and larger biopsy samples for pathology. Abx per ID adjust meds for SVT, metoprolol as needed Thank you very much, Dr. Ortiz, for this consult. Please call for question
[2019-07-05] MEDS: LEVOFLOXACIN 500 MG TAB PO SCH (17:29)
[2019-07-05] MEDS ORDERED: POTASSIUM CHLORIDE 20 MEQ TAB CR PO NR (17:30)
--- NOTE | 2019-07-05 19:26 | Progress Note ---
DATE: 07/05/2019 REASON FOR PROGRESS NOTE: Right pleural effusion; requested by Dr. Dm Ortiz. RESEARCH SUBJECT: Dr. Phillip Vieira. SUBJECTIVE: The patient is sitting up in bed and breathing comfortably. Scheduling of thoracoscopy is problematic because of ICU bed availability in the ICU. I discussed this with AIDAN Mckeon. Plan now is for standby for surgery on Sunday and hopefully surgery on Sunday when ICU bed will be available. REVIEW OF SYSTEMS: CARDIAC: Negative for chest pain. PULMONARY: Positive for stable dyspnea. GI: No diarrhea or constipation. : Negative for dysuria. PHYSICAL EXAMINATION: GENERAL: Well-developed, well-nourished lady, sitting up in bed. VITAL SIGNS: Blood pressure 135/70, pulse 80 and regular, respirations 16, and slightly labored. NECK: Supple. Nontender. No JVD. CARDIAC: Shows a regular rate and rhythm. Normal S1, S2. No rub or murmur. LUNGS: Decreased breath sounds on the right. Left lung field is clear. EXTREMITIES: 1+ edema of both lower extremities. LABORATORY DATA: White count 10.8, hemoglobin 10.7, hematocrit 32.4, and platelet count 579,000. Sodium 137, potassium 3.6, BUN 10, creatinine 0.5. Liver function tests slightly elevated with AST 79, ALT 160, and alkaline phosphatase 379. IMPRESSION: Scheduling for thoracoscopy has been challenging because of ICU bed availability, because of COVID-19 testing. I have discussed this with her other physicians and with AIDAN Mckeon. Plan is for standby for surgery on Sunday and hopefully surgery on Sunday. I discussed this with the patient. MD ISAIAS Solitario/VIVEK /[id number]
[2019-07-05 19:28] LABS: CREATINE KINASE MB 1.5 ng/mL (0-5.0)
[2019-07-05] MEDS: ACETAMINOPHEN 325 MG TAB PO PRN (21:00)
[2019-07-06] VITALS (8 sets, daily range): BP systolic 124–141; BP diastolic 69–85
--- NOTE | 2019-07-06 01:08 | NUR ---
CARDIAC MARKER RESULT STILL PENDING
--- NOTE | 2019-07-06 02:23 | NUR ---
SPOKE TO ADDIS MAHONEY AT THIS TIME REGARDING PENDING CARDIAC MARKER RESULT. MARU SAID "I'M STILL RUNNING CONTROLS FOR CARDIAC MARKERS"
[2019-07-06 02:59] LABS: CREATINE KINASE MB 1.1 ng/mL (0-5.0)
--- NOTE | 2019-07-06 05:19 | Progress Note ---
DATE: 07/05/2019 CHIEF COMPLAINT/HISTORY OF PRESENT ILLNESS: This is a 69-year-old white woman, who was recently diagnosed with metastatic lung adenocarcinoma with a large right-sided pleural effusion. The patient underwent chest x-ray on July 04, 2019, which revealed a right base opacity and confirmed the large right pleural effusion. The patient states that she has been experiencing significant amount of anxiety recently. White blood cell count today is 10,800 with 74% segmented neutrophils. Hemoglobin is 10.7 g/dL. Today's BUN and creatinine is 10 and 0.5 respectively. Potassium is 3.6. The patient's AST and ALT are 76 and 162 respectively. The patient underwent an abdominal ultrasound on June 27, 2019, which revealed findings consistent with liver cirrhosis, otherwise unremarkable. The patient is scheduled for tentative right lung decortication in the near future. REVIEW OF SYSTEMS: As per HPI. PHYSICAL EXAMINATION: GENERAL: She is awake and alert. She is slightly dyspneic, but in no acute respiratory distress, very pleasant on exam. VITAL SIGNS: Blood pressure is 114/64, pulse 78, respiratory rate is 18, temperature 97.4, oxygen saturation 98% on room air. Height is 5 feet 3 inches, weight 148 pounds. INTEGUMENT: Skin is warm and dry. No pallor, jaundice or diaphoresis. HEENT: Anicteric sclerae. Moist mucous membranes. The patient has coarse facies and a hoarse smoker's voice. NECK: Supple. CARDIOVASCULAR: Distant heart sounds. Regular rate and rhythm. LUNGS: The patient has diminished breath sounds in the right lung field. ABDOMEN: Benign. EXTREMITIES: No edema or deformity. NEUROLOGIC: Intact DIAGNOSES: 1. Metastatic lung adenocarcinoma (recent diagnosis). 2. Right-sided pneumonia, possibly postobstructive. 3. Right-sided malignant pleural effusion (adenocarcinoma). 4. Tobacco abuse (the patient quit in May 2019). 5. Liver cirrhosis, likely. PLAN: 1. Tentative right-sided lung decortication in the near future. 2. Continue intravenous antibiotics for patient's pneumonia. 3. We will prescribe lorazepam 0.5 mg one pill every 6 hours p.r.n. anxiety. 4. Commend the patient for tobacco cessation. 5. Follow the patient's hepatic transaminases. I spent 25 minutes in the care of the patient. MD ALBERT Navarrete /[id number] MTDAlie
[2019-07-06 06:58] LABS: BASOPHILS # (AUTO) 0.1 (0.0-0.1); BASOPHILS % 0.5 % (0.0-1.0); EOSINOPHILS # (AUTO) 0.2 (0.0-0.4); HEMATOCRIT 34.1 % (34.2-44.1); HEMOGLOBIN 10.9 g/dL (12.0-16.0); LYMPHOCYTES % 10.1 % (18.0-39.1); MEAN CORPUSCULAR HEMOGLOBIN 29.7 pg (28-32); MEAN CORPUSCULAR VOLUME 92.9 fL (81-99); MONOCYTES # (AUTO) 1.4 (0.2-0.8); MONOCYTES % 13.2 % (4.4-11.3); NEUTROPHILS # (AUTO) 7.6 (2.1-6.9); NEUTROPHILS % 73.9 % (38.7-80.0); PLATELET COUNT 653 x10e3/uL (140-360); RED BLOOD COUNT 3.67 x10e6/uL (3.6-5.1)
[2019-07-06 07:23] LABS: ALANINE AMINOTRANSFERASE 136 IU/L (0-55); ALBUMIN/GLOBULIN RATIO 0.6 (0.8-2.0); ALKALINE PHOSPHATASE 370 IU/L (40-150); ANION GAP 11.9 mmol/L (8-16); BLOOD UREA NITROGEN 10 mg/dL (7-26); BUN/CREATININE RATIO 20 (6-25); CALCIUM 8.6 mg/dL (8.4-10.2); CARBON DIOXIDE 26 mmol/L (22-29); CHLORIDE 103 mmol/L (98-107); CREATININE, SERUM 0.51 mg/dL (0.57-1.11); EST GLOMERULAR FILTRATION RATE > 60 ML/MIN (60-); GLUCOSE 88 mg/dL (74-118); POTASSIUM 3.9 mmol/L (3.5-5.1); SODIUM 137 mmol/L (136-145)
--- NOTE | 2019-07-06 07:36 | NUR ---
Received bedside shift report from off going nurse. Patient in stable condition, no s/s of distress noted. Telemetry applied. Bed in lowest position and locked. Call light within reach.
[2019-07-06] MEDS: SALINE 0.65% NAS SOLN 1 SPRAY BTL SCH ×3 (08:33→20:40)
[2019-07-06] MEDS: METOPROLOL SUCCINATE 25 MG TAB XL PO SCH ×2 (12:21→16:26)
--- NOTE | 2019-07-06 12:33 | Progress Note ---
DATE: 07/06/2019 CHIEF COMPLAINT/HISTORY OF PRESENT ILLNESS: This is a 69-year-old white woman, whose primary treating diagnosis is right-sided pneumonia with malignant parapneumonic effusion. The patient was recently diagnosed with metastatic lung adenocarcinoma. The patient most likely has a right-sided postobstructive pneumonia from this underlying malignancy. The patient states that her shortness of breath is still present, but did not appear to be worsening. Last night, the patient had an episode of tachycardia as well as another episode of ventricular tachycardia. The patient is scheduled for right-sided lung decortication in near future. Blood work performed today revealed B-type natriuretic peptide level of 95. The patient's BUN and creatinine are 10 and 0.51 respectively. Potassium is 3.9. The patient's magnesium on July 04, 2019, was 1.9. Today's white blood cell count was 10,200 with 73% segmented neutrophils. Hemoglobin is 10.9 g/dL. REVIEW OF SYSTEMS: As per HPI. PHYSICAL EXAMINATION: GENERAL: She is awake, alert. She is fully oriented. She is slightly dyspneic, does not appear to be any obvious respiratory distress. She is currently eating lunch and she is wearing oxygen via nasal cannula. VITAL SIGNS: Height 5 feet 3 inches, weight 170 pounds, BMI 30. Blood pressure 130/80, pulse 94, respiratory rate is 22, temperature 97.4, oxygen saturation 99% on 2.5 L of oxygen per minute. INTEGUMENT: Skin is warm and dry. Slight pallor. No jaundice or diaphoresis. HEENT: Anterior sclerae with moist mucous membranes. NECK: Supple. No evidence of jugular venous distention. CARDIOVASCULAR: Distant heart sounds. Tachycardic rate with a regular rhythm. LUNGS: The patient has no breath sounds in the right lung field. ABDOMEN: Benign. Normal bowel sounds. EXTREMITIES: No edema or deformity. NEUROLOGIC: Intact. DIAGNOSES: 1. Metastatic lung adenocarcinoma (recent diagnosis). 2. Right-sided pleural effusion, possible postobstructive. 3. Right-sided malignant pleural effusion (adenocarcinoma). 4. Tobacco abuse (the patient quit in May 2019). 5. Liver cirrhosis, likely. 6. Ventricular tachycardia, resolved. PLAN: 1. Tentative right-sided lung decortication either tomorrow, Sunday July 07, 2019 or Monday July 08, 2019. 2. Continue intravenous antibiotics for the patient's pneumonia. 3. Continue lorazepam 0.5 mg every 6 hours p.r.n. anxiety. 4. Commend the patient for tobacco cessation. 5. Follow hepatic transaminases. 6. We will prescribe metoprolol succinate 25 mg b.i.d. scheduled to help control heart rate. I spent 30 minutes in the care of this patient. MD AXEL Navarrete/VIVEK /[id number] MTDD
[2019-07-06] MEDS: LEVOFLOXACIN 500 MG TAB PO SCH (16:25)
--- NOTE | 2019-07-06 18:45 | NUR ---
Completed bedside shift report with the oncoming night nurse. Patient in stable condition, no s/s of distress noted. Telemetry applied. Bed in lowest position and locked. Call light within reach.
[2019-07-06] MEDS: ACETAMINOPHEN 325 MG TAB PO PRN (20:40)
--- NOTE | 2019-07-06 20:41 | NUR ---
Pulmonary Medicine DATE 07/06/2019 SUBJECTIVE: 3 L/min oxygen no repeat tachycardias ate 2/3 BM REVIEW OF SYSTEMS: No headaches, no rash PHYSICAL EXAMINATION: VITAL SIGNS: vital signs noted, reviewed per the chart record. GENERAL: no acute distress, alert, calm HEENT: Normocephalic, atraumatic. NECK: Supple. Throat midline. LUNGS: Bilateral air entry, mild decreased BS at bases CARDIOVASCULAR: S1, S2. No murmurs, rubs, or gallops. ABDOMEN: Soft, nontender. EXTREMITIES: No clubbing. No cyanosis. no edema. INTEGUMENT: No rash. No purpura. LABORATORY DATA: k 3.9, cr 0.51, bun 10. wbc 12, hct 34, plt 653 IMPRESSION AND PLAN: 1. Massive right-sided lymphocytic pleural effusion, malignancy related Epithelial cell origin NOS, based on cell markers. ?lung cancer ?other 2. Chronic smoker. 3. Acute community-acquired pneumonia. 4. Hyponatremia, possible SIADH. Resolving 5. Mild allergies. 6. Mild gastroesophageal reflux disease. 7. elevated lfts Follow with thoracic surgery team, attempting to coordinate surgery Considering VATS + decortication patient would symptomatically benefit from decortication and larger biopsy samples for pathology. Abx per ID adjust meds for SVT, metoprolol as needed Thank you very much, Dr. Ortiz, for this consult. Please call for question
[2019-07-07] VITALS (8 sets, daily range): BP systolic 123–140; BP diastolic 61–74
[2019-07-07 06:02] LABS: BASOPHILS # (AUTO) 0.1 (0.0-0.1); BASOPHILS % 0.6 % (0.0-1.0); EOSINOPHILS # (AUTO) 0.2 (0.0-0.4); EOSINOPHILS % 1.7 % (0.0-6.0); HEMATOCRIT 33.1 % (34.2-44.1); HEMOGLOBIN 10.6 g/dL (12.0-16.0); LYMPHOCYTES # (AUTO) 1.1 (1.0-3.2); LYMPHOCYTES % 11.2 % (18.0-39.1); MEAN CORPUSCULAR HEMOGLOBIN 29.5 pg (28-32); MEAN CORPUSCULAR VOLUME 92.2 fL (81-99); MONOCYTES # (AUTO) 1.2 (0.2-0.8); MONOCYTES % 12.6 % (4.4-11.3); NEUTROPHILS # (AUTO) 7.1 (2.1-6.9); NEUTROPHILS % 73.5 % (38.7-80.0); PLATELET COUNT 623 x10e3/uL (140-360); RED BLOOD COUNT 3.59 x10e6/uL (3.6-5.1)
[2019-07-07 06:16] LABS: INR 0.97; PROTHROMBIN TIME 13.5 seconds (11.9-14.5)
[2019-07-07 06:17] LABS: PARTIAL THROMBOPLASTIN TIME 31.7 seconds (23.8-35.5)
[2019-07-07 06:26] LABS: ALANINE AMINOTRANSFERASE 104 IU/L (0-55); ALBUMIN 1.9 g/dL (3.5-5.0); ALBUMIN/GLOBULIN RATIO 0.5 (0.8-2.0); ALKALINE PHOSPHATASE 332 IU/L (40-150); BLOOD UREA NITROGEN 9 mg/dL (7-26); BUN/CREATININE RATIO 17 (6-25); CALCIUM 8.6 mg/dL (8.4-10.2); CARBON DIOXIDE 28 mmol/L (22-29); CHLORIDE 100 mmol/L (98-107); CREATININE, SERUM 0.52 mg/dL (0.57-1.11); EST GLOMERULAR FILTRATION RATE > 60 ML/MIN (60-); GLUCOSE 92 mg/dL (74-118); SODIUM 136 mmol/L (136-145)
[2019-07-07] MEDS: SALINE 0.65% NAS SOLN 1 SPRAY BTL SCH ×3 (08:07→20:25)
[2019-07-07] MEDS: METOPROLOL SUCCINATE 25 MG TAB XL PO SCH ×2 (08:07→16:15)
[2019-07-07] MEDS ORDERED: ACETAMIN/BUTALBITAL/CAFFEINE TAB PO ONE (11:25)
--- NOTE | 2019-07-07 13:22 | Progress Note ---
DATE: SUBJECTIVE: The patient is seen and evaluated. Available labs and notes reviewed. Discussed with the nurse. REVIEW OF SYSTEMS: No nausea, vomiting, fever, chills. Shortness of breath is stable and the patient states that she is weak in general, gets tired when she walks short distances. OBJECTIVE: VITAL SIGNS: Temperature 97.8. The patient is afebrile with a pulse of 89, respiration 24, blood pressure 128/61. GENERAL: Alert and oriented, no acute distress, very pleasant. CV: S1, S2. CHEST: Equal expansion. Decreased breath sounds. No acute distress. ABDOMEN: Soft, nontender. No distention. HEENT: Moist. No pallor. No JVD, on O2 nasal cannula. EXTREMITIES: Moves all. No significant edema. MEDICATIONS: Medication list reviewed. From Infectious Disease point of view, the patient is on Levaquin. LABORATORY STUDIES: White count of 9.66, hemoglobin 10.6, platelets 623. Sodium 136, potassium 4, creatinine 0.52. AST improved , ALT improved to 332. BNP of 95.3. Serology; no new serology available. MICROBIOLOGY: No new microbiology studies available. RADIOLOGY: No new radiology studies available. ASSESSMENT AND PLAN: 1. Lymphocytic pleural effusion on the right side. Thoracentesis culture was negative. The patient pending surgery by cardiothoracic team, it seems to be moved again for tomorrow. 2. Community acquired pneumonia. The patient has been on antibiotics, Levaquin. Continue to monitor. 3. Leukocytosis, resolved. 4. Electrolyte abnormalities. 5. Shortness of breath is multifactorial, continue with the antibiotics and O2 supplement at this point and monitor. 6. Anemia. 7. The patient is a chronic smoker. Encouraged smoking cessation. Continue to monitor the patient. Follow up with the labs. Await surgery. Please refer to chart for more information. Discussed with Dr. Yee in detail. MD KEENAN Lozoya/MODL /[id number]
--- NOTE | 2019-07-07 15:47 | NUR ---
Pulmonary Medicine DATE 07/07/2019 SUBJECTIVE: Headaches, good response to meds No bowel movement 3 L /min oxygen d/w anesthesia REVIEW OF SYSTEMS: No headaches, no rash PHYSICAL EXAMINATION: VITAL SIGNS: vital signs noted, reviewed per the chart record. GENERAL: no acute distress, alert, calm HEENT: Normocephalic, atraumatic. NECK: Supple. Throat midline. LUNGS: Bilateral air entry, mild decreased BS at bases CARDIOVASCULAR: S1, S2. No murmurs, rubs, or gallops. ABDOMEN: Soft, nontender. EXTREMITIES: No clubbing. No cyanosis. no edema. INTEGUMENT: No rash. No purpura. LABORATORY DATA: reviewed per EMR Na 136 IMPRESSION AND PLAN: 1. Massive right-sided lymphocytic pleural effusion, malignancy related Epithelial cell origin NOS, based on cell markers. ?lung cancer ?other 2. Chronic smoker. 3. Acute community-acquired pneumonia. 4. Hyponatremia, possible SIADH. Resolving 5. Mild allergies. 6. Mild gastroesophageal reflux disease. 7. elevated lfts Follow with thoracic surgery team, attempting to coordinate surgery tentative for tomorrow Considering VATS + decortication patient would symptomatically benefit from decortication and larger biopsy samples for pathology. Abx per ID adjust meds for SVT, metoprolol as needed Thank you very much, Dr. Ortiz, for this consult. Please call for question
[2019-07-07] MEDS ORDERED: BENZONATATE 100 MG CAP PO PRN (16:00)
[2019-07-07] MEDS ORDERED: CHLORASEPTIC SPRAY 177 ML BTL MM PRN (16:00)
[2019-07-07] MEDS: LEVOFLOXACIN 500 MG TAB PO SCH (16:15)
[2019-07-07] MEDS ORDERED: CEPACOL SORE THROAT LOZENGES PO PRN (17:00)
--- NOTE | 2019-07-07 19:10 | NUR ---
BEDSIDE SHIFT REPORT RECEIVED. PATIENT IS RESTING IN BED, AAOX3. REP EVEN AND UNLABORED. EDUCATED PT ABOUT FALL PRECAUTIONS. PT VERBALIZED UNDERSTANDING. CALL LIGHT WITH IN EASY REACH. INSTRUCTED PT TO USE CALL LIGHT FOR ALL THE NEEDS. BED IS LOW AND LOCKED. SIDE RAILS X2. PT DENIES NEEDS AT THIS TIME.
--- NOTE | 2019-07-07 19:18 | NUR ---
Report given to oncoming nurse of patient's status. Resting in bed. No s/s of acute distress noted. Side rails upx2, call light within reach.
[2019-07-08] VITALS (15 sets, daily range): BP systolic 78–131; BP diastolic 36–101
--- NOTE | 2019-07-08 04:07 | NUR ---
Pulmonary Medicine DATE 07/08/2019 SUBJECTIVE: 4 L/min oxygen NC delivery pt sleeping readily d/w nursing, scheduling in place for OR REVIEW OF SYSTEMS: No headaches, no rash PHYSICAL EXAMINATION: VITAL SIGNS: vital signs noted, reviewed per the chart record. GENERAL: no acute distress, alert, calm HEENT: Normocephalic, atraumatic. NECK: Supple. Throat midline. LUNGS: Bilateral air entry, mild decreased BS at bases CARDIOVASCULAR: S1, S2. No murmurs, rubs, or gallops. ABDOMEN: Soft, nontender. EXTREMITIES: No clubbing. No cyanosis. no edema. INTEGUMENT: No rash. No purpura. LABORATORY DATA: no new updates IMPRESSION AND PLAN: 1. Massive right-sided lymphocytic pleural effusion, malignancy related Epithelial cell origin NOS, based on cell markers. ?lung cancer ?other 2. Chronic smoker. 3. Acute community-acquired pneumonia. 4. Hyponatremia, possible SIADH. Resolving 5. Mild allergies. 6. Mild gastroesophageal reflux disease. 7. elevated lfts Follow with thoracic surgery team, attempting to coordinate surgery tentative for tomorrow Tentative 1 pm VATS + decortication patient would symptomatically benefit from decortication and larger biopsy samples for pathology. Abx per ID Thank you very much, Dr. Ortiz, for this consult. Please call for question
[2019-07-08] MEDS: SALINE 0.65% NAS SOLN 1 SPRAY BTL SCH ×3 (08:48→21:27)
[2019-07-08] MEDS: METOPROLOL SUCCINATE 25 MG TAB XL PO SCH ×2 (08:48→17:00)
[2019-07-08] MEDS ORDERED: LIDOCAINE 1% W/EPINEPHRINE 20 ML VIAL ONE (10:24)
[2019-07-08] MEDS ORDERED: MUPIROCIN 2% OINT 22 GM TUBE ONE (10:24)
[2019-07-08] MEDS ORDERED: BACITRACIN 50,000 UNIT VIAL ONE (10:27)
--- NOTE | 2019-07-08 10:58 | Progress Note ---
DATE: SUBJECTIVE: The patient is seen and evaluated. Available labs and notes reviewed. Discussed with Dr. Yee. REVIEW OF SYSTEMS: No nausea, vomiting, fever, chills, chest pain, headache, rash, or dysuria. Shortness of breath improved, remains on O2 nasal cannula. PHYSICAL EXAMINATION: VITAL SIGNS: Temperature 98.4, pulse is 80, respiration 18, blood pressure 120/58. The patient remains afebrile. GENERAL: Alert and oriented, no acute distress. CV: S1, S2. CHEST: Equal expansion. Decreased breath sounds. No acute distress. Remains on O2 nasal cannula. ABDOMEN: Soft and nontender. No distention. HEENT: Moist. No pallor. No JVD. EXTREMITIES: Moves, no significant edema. MEDICATIONS: Medication list reviewed. Remains on Levaquin p.o. LABORATORY STUDIES: White count 9.66, hemoglobin 10.6, platelet 623. Sodium 136, potassium 4. Creatinine 0.52. Serology: Coronavirus PCR not detected on 06/23 and 06/27 with recheck on 07/06 pending. MICROBIOLOGY: No new microbiology studies available. RADIOLOGY STUDIES: No new radiology studies available. ASSESSMENT AND PLAN: 1. Lymphocytic pleural effusion on the right side, status post thoracentesis, cultures negative, pending VATS. Procedure planned for today. 2. Community-acquired pneumonia, remains on Levaquin. Continue to monitor. 3. Shortness of breath-multifactorial, see above. 4. Anemia. 5. Electrolyte abnormalities. Continue to monitor the patient in the clinic. Follow with the labs, pending VATS. Discussed with Dr. Yee in detail. Please refer to chart for more information. MD KEENAN Lozoya/VIVEK /[id number]
--- NOTE | 2019-07-08 11:11 | NUR ---
Patient is transported for procedure at this time.
[2019-07-08] MEDS ORDERED: EPHEDRINE SULFATE INJ 50 MG/ML VIAL ONE (11:50)
[2019-07-08] MEDS ORDERED: NEOSTIGMINE 1 MG/ML 10ML VIAL ONE (11:50)
[2019-07-08] MEDS ORDERED: ROCURONIUM BROMIDE 10 MG/ML 5ML VIAL IV ONE (11:50)
[2019-07-08] MEDS ORDERED: ETOMIDATE 2 MG/ML 10 ML INJ IV ONE (11:50)
[2019-07-08] MEDS ORDERED: LIDOCAINE HCL 2% LOCAL INJ 5 ML SDV VIAL INJ ONE (11:50)
[2019-07-08] MEDS ORDERED: PHENYLEPHRINE HCL 1% 10 MG/ML VIAL ONE (11:50)
[2019-07-08] MEDS ORDERED: SEVOFLURANE INHAL SOLN 250 ML PEN BTL ONE (11:50)
[2019-07-08] MEDS ORDERED: GLYCOPYRROLATE INJ 0.2 MG/ML VIAL ONE (11:50)
[2019-07-08] MEDS ORDERED: ONDANSETRON HCL INJ 2MG/ML 2ML 2 MG/ML VIAL ONE (11:50)
[2019-07-08] MEDS ORDERED: KETOROLAC TROMETHAMINE 30 MG/ML VIAL ONE (11:50)
[2019-07-08] MEDS ORDERED: DEXAMETHASONE SOD PHOS INJ 4 MG/ML VIAL ONE (11:50)
[2019-07-08] MEDS ORDERED: BUPIVACAINE HCL 0.5% INJ 30 ML VIAL INJ ONE ×2 (14:04→14:56)
[2019-07-08] MEDS ORDERED: SODIUM CHLORIDE 0.9% 250ML 250 ML IV SCH (14:45)
--- NOTE | 2019-07-08 15:13 | NUR ---
rec'd pt from OR w/chest tube x 2 right lateral side. v/s 84/37,ordered to give 1 unit PRBCs, will continue to monitor
--- NOTE | 2019-07-08 15:33 | NUR ---
Nutrition Intervention Note RD Recommendation(s) for Physician: -Continue Regular diet Plan of Care: RD following, monitoring for tolerance and adequacy Nutrition reason for involvement: Follow up RD Assessment 07/07: Follow up. Pt out of room for surgery- VATS procedure today due to pleural effusion. Pt NPO, previous tolerating diet and eating well- noted 75-100% meal intake. Chart reviewed. Will continue to monitor. 06/30: Follow up. Pt discussed during MDR, surgery pending . 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 Pt reports good appetite and po intake, noted 75-100% meal intake per chart. Pt denies any GI distress. Pt with no nutrition related questions or concerns at time of visit. Will continue to monitor. (06/25/19) Pt is a 69 year old female admitted with pneumonia. Pt stated her appetite was down and eating < 50% for the past 2 weeks, but her appetite has improved today. Pt stated she ate all of her breakfast and lunch today. Pt also mentioned she had lost weight and had weighed 166 lbs 2 weeks ago. Pt currently has a weight of 162 lbs in chart; therefore, this would be a 2% weight loss in 2 weeks. Pt was interested in a nutrition supplement. Recommend Ensure Compact BID for added nutrition. Will continue to monitor. Principal Problems/Diagnoses: pneumonia PMH: none GI: LBM 07/06 x 2 Skin: no pressure ulcer or wounds Labs: 07/07: Na 136, Cr 4, BUN 9, Cr 0.52, Gluc 92 06/29: Na 137, K 3.7, BUN 8, Cr 0.55, Gluc 92, Ca 8 Meds: zofran, abx Ht: 63 inches Wt: 171.38 lb (07/07), 148.5 lb (06/30)- questionable wt change, 162 lbs (06/24) BMI: 28.7 kg/m2 IBW: 115 lbs Malnutrition Evaluation (06/25/19) The patient does not meet criteria for a specified degree of malnutrition at this time. Will re-evaluate at follow-up as appropriate. Nutrition Prescription (Diet Order): NPO Estimated Nutritional Needs: 4961-4614 calories/day (18-20 kcal/kg CBW) 74-110 g protein/day (1-1.5 g pro/kg CBW) Diet Adequacy: pt was not meeting calorie or protein needs prior to admission, but reports her appetite has improved today and stated she consumed all of her breakfast and lunch Tolerance: Tolerating PO- prior to NPO Diet Education Needs Assessment: Diet education not indicated Nutrition Care Level: low Nutrition Diagnosis: Unintended weight loss related to decreased ability to consume sufficient energy secondary to decreased appetite as evidenced by 2% weight loss in 2 weeks. Goal: Patient will meet 75-100% of estimated needs by follow up Progress: goal met Interventions: -General healthful diet, Collaboration with other providers Monitoring/Evaluation: -Total energy intake, Total protein intake, Liquid supplement, Weight change Signed: Anabell Mcintosh RD, LD, [facility]
[2019-07-08] MEDS ORDERED: MIDAZOLAM HCL 2 MG/2 ML VIAL ONE (16:12)
[2019-07-08] MEDS ORDERED: FENTANYL CITRATE/PF 100MCG/2 ML INJ ONE (16:12)
--- NOTE | 2019-07-08 16:19 | NUR ---
Patient is transfer to ICU after surgery. All personal belongings are taken to the room.
--- NOTE | 2019-07-08 16:47 | Diagnostic Imaging Report ---
EXAMINATION: CHEST SINGLE (PORTABLE) INDICATION: Chest tube placement COMPARISON: Chest radiograph of 07/04/2019 FINDINGS: LINES/TUBES:Right apical and basilar surgical chest tubes in place. Right IJ central venous catheter terminates in the superior vena cava. EKG leads overlie the chest. LUNGS:The left lung is well-inflated. Right lung volumes are low. Right lower lung airspace opacities silhouette the right hemidiaphragm. PLEURA:Interval decrease in right pleural effusion. No left pleural effusion. No pneumothorax. MEDIASTINUM:The cardiomediastinal silhouette appears unchanged in size and shape. BONES/SOFT TISSUES:No acute osseous injury. Right lateral chest wall subcutaneous emphysema. ABDOMEN:No free air under the diaphragm. IMPRESSION: Interval placement of right apical and basilar chest tubes. Interval decrease in right pleural effusion. No pneumothorax. Right lower lung airspace opacities, more likely subsegmental atelectasis than superimposed aspiration or pneumonia. Signed by: Fernando Moreira MD on 07/08/2019 4:44 PM
[2019-07-08] MEDS ORDERED: LACTATED RINGER'S 1,000 ML ONE (18:11)
[2019-07-08] MEDS: KETOROLAC TROMETHAMINE 30 MG/ML VIAL IM PRN (18:12)
[2019-07-08] MEDS: LEVOFLOXACIN 500 MG TAB PO SCH (18:26)
[2019-07-08] MEDS ORDERED: MORPHINE SULFATE 2 MG/ML SYR 1ML IV PRN (18:30)
[2019-07-08] MEDS: ACETAMINOPHEN/CODEINE 300MG - 30MG TAB PO PRN (19:50)
[2019-07-08] MEDS: CEFAZOLIN SOD 1 GM/NS 50ML 50 ML IV SCH (20:00)
[2019-07-08] MEDS: IPRATROPIUM BROMIDE 0.02% 2.5 ML NEB NEB PRN (20:15)
[2019-07-08 21:51] LABS: BASOPHILS # (AUTO) 0.1 (0.0-0.1); BASOPHILS % 0.2 % (0.0-1.0); HEMATOCRIT 34.9 % (34.2-44.1); HEMOGLOBIN 11.4 g/dL (12.0-16.0); LYMPHOCYTES # (AUTO) 0.5 (1.0-3.2); LYMPHOCYTES % 2.4 % (18.0-39.1); MEAN CORPUSCULAR HEMOGLOBIN 29.7 pg (28-32); MEAN CORPUSCULAR HGB CONC 32.7 g/dL (31-35); MEAN CORPUSCULAR VOLUME 90.9 fL (81-99); MONOCYTES # (AUTO) 0.8 (0.2-0.8); MONOCYTES % 3.7 % (4.4-11.3); NEUTROPHILS # (AUTO) 19.3 (2.1-6.9); NEUTROPHILS % 93.1 % (38.7-80.0); PLATELET COUNT 659 x10e3/uL (140-360); RED BLOOD COUNT 3.84 x10e6/uL (3.6-5.1); RED CELL DISTRIBUTION WIDTH 13.7 % (11.7-14.4)
[2019-07-08 21:54] LABS: ANION GAP 12.2 mmol/L (8-16); BLOOD UREA NITROGEN 11 mg/dL (7-26); BUN/CREATININE RATIO 20 (6-25); CALCIUM 7.9 mg/dL (8.4-10.2); CARBON DIOXIDE 23 mmol/L (22-29); CHLORIDE 101 mmol/L (98-107); CREATININE, SERUM 0.55 mg/dL (0.57-1.11); EST GLOMERULAR FILTRATION RATE > 60 ML/MIN (60-); GLUCOSE 111 mg/dL (74-118); POTASSIUM 4.2 mmol/L (3.5-5.1); SODIUM 132 mmol/L (136-145)
--- NOTE | 2019-07-08 22:42 | Operative Report ---
DATE OF PROCEDURE: SURGEON: Phillip Lovell MD PREOPERATIVE DIAGNOSES: 1. Persistent right pleural effusion/loculated pleural effusion. 2. Dyspnea. POSTOPERATIVE DIAGNOSES: 1. Persistent right pleural effusion/loculated pleural effusion. 2. Dyspnea. OPERATIVE PROCEDURES: 1. Right thoracoscopy/right knee. 2. Drainage of loculated right pleural effusion. 3. Full decortication of right lung. 4. Biopsy, right tamra. 5. Mechanical pleurodesis. 6. Multilevel intercostal nerve block. COW PUNCHER: Nursing. ANESTHESIA: General endotracheal. INDICATIONS: This is a 69-year-old lady with a recalcitrant right pleural effusion which has recurred. Drainage has been recommended prior to surgery, I described the operation. I spoke with the son by phone because of the COVID-19 restrictions. I told them both that the risks of surgery would have been heart attack, stroke, pneumonia, prolonged ICU stay, mechanical ventilation, tracheostomy, recurrent pleural effusion, malignancy, need for repeat surgery, etc. The patient and her son, each stated that they understood, no further question wanted to proceed. FINDINGS: Approximately 2 L of pleural effusion that was evacuated. There was extensive cortical peel around the lung, especially around the inferior lobe was carried out. There were some adhesions of the right lung posteriorly to the pleura. These were taken down and biopsied. No pleural plaquing was identified. I could not palpate any pulmonary or mediastinal masses or abnormality. DESCRIPTION OF PROCEDURE: The patient was taken to the operative room on July 08, 2019, and placed supine upon the operating table. General endotracheal anesthesia using a double-lumen endotracheal tube was performed. The patient was placed with her right side up in preparation for thoracoscopy/thoracotomy. The right chest was sterilely prepped and draped in the usual fashion using alcohol prewash and Betadine scrub and solution. Time-out was performed appropriately. Thoracoscopy was performed through two incisions placed along the line of a lateral thoracotomy. There were multiple adhesions identified, although the pleural effusions were partially drained. Because of the inability to completely drain the effusion and decortication of the lung, a lateral mini-thoracotomy was performed at a level 1 fingerbreadth below the scapula. On entering the chest, multiple adhesions that were somewhat dense were taken down freeing the entire lung from the chest wall. There were multiple pockets of pleural effusion that were drained. Fluid was sent for multiple cultures including anaerobic, aerobic, fungal, viral, and AFB. It was thought this specimen was also sent for cytologic analysis. Full decortication of the right lung was then carried out. Cortical peel was completely removed. The cortical peel was especially prominent around the left lower lobe. After decortication, the lung ended appropriately. Pleural biopsies were obtained in the lateral aspect where there had been some adhesions. These were sent for permanent section. Mechanical pleurodesis was then performed using a Bovie scratch pad. The entire oral surface was decorticated. Two chest tubes were inserted through the separate stab wounds. There was good hemostasis. The wound was closed in layers using #1 pericostal sutures to reapproximate the ribs. Sterile dressings were applied. Sponge, instrument, needle counts were correct both prior to and after wound closure. Independent search of the operative field by both operating surgeon and nurse revealed no retained instruments or sponges. The patient tolerated the procedure well and was taken to the recovery area in stable condition. MD ISAIAS Solitario/VIVEK /[id number] [place]
[2019-07-09] VITALS (24 sets, daily range): BP systolic 83–112; BP diastolic 52–80
[2019-07-09] MEDS: ACETAMINOPHEN/CODEINE 300MG - 30MG TAB PO PRN ×3 (02:05→19:48)
[2019-07-09] MEDS: CEFAZOLIN SOD 1 GM/NS 50ML 50 ML IV SCH (04:15)
[2019-07-09 05:42] LABS: BASOPHILS # (AUTO) 0.1 (0.0-0.1); BASOPHILS % 0.3 % (0.0-1.0); EOSINOPHILS # (AUTO) 0.1 (0.0-0.4); EOSINOPHILS % 0.7 % (0.0-6.0); HEMOGLOBIN 10.5 g/dL (12.0-16.0); LYMPHOCYTES # (AUTO) 1.3 (1.0-3.2); LYMPHOCYTES % 8.6 % (18.0-39.1); MEAN CORPUSCULAR HEMOGLOBIN 29.7 pg (28-32); MEAN CORPUSCULAR HGB CONC 32.8 g/dL (31-35); MEAN CORPUSCULAR VOLUME 90.7 fL (81-99); MONOCYTES # (AUTO) 1.2 (0.2-0.8); MONOCYTES % 7.6 % (4.4-11.3); NEUTROPHILS # (AUTO) 12.6 (2.1-6.9); NEUTROPHILS % 82.2 % (38.7-80.0); PLATELET COUNT 625 x10e3/uL (140-360); RED BLOOD COUNT 3.53 x10e6/uL (3.6-5.1); RED CELL DISTRIBUTION WIDTH 13.9 % (11.7-14.4)
[2019-07-09 05:53] LABS: ANION GAP 12.5 mmol/L (8-16); BLOOD UREA NITROGEN 13 mg/dL (7-26); BUN/CREATININE RATIO 24 (6-25); CALCIUM 7.9 mg/dL (8.4-10.2); CARBON DIOXIDE 24 mmol/L (22-29); CHLORIDE 101 mmol/L (98-107); CREATININE, SERUM 0.55 mg/dL (0.57-1.11); EST GLOMERULAR FILTRATION RATE > 60 ML/MIN (60-); GLUCOSE 98 mg/dL (74-118); POTASSIUM 4.5 mmol/L (3.5-5.1); SODIUM 133 mmol/L (136-145)
[2019-07-09] MEDS: KETOROLAC TROMETHAMINE 30 MG/ML VIAL IM PRN ×2 (06:10→12:28)
--- NOTE | 2019-07-09 07:03 | Diagnostic Imaging Report ---
EXAMINATION: CHEST SINGLE (PORTABLE) COMPARISON: Chest x-ray 07/08/2019, CT chest 06/26/2019 INDICATION: ^chest tube maintenance ^[id number] ^05 DISCUSSION: Frontal view of the chest obtained at 0619 hours. HEART AND MEDIASTINUM: Stable LINES: Right IJ catheter terminates in the SVC. 2 right-sided chest tubes are stable in position LUNGS/PLEURA: Circumferential right pleural effusion is redemonstrated. No pneumothorax. Stable right lower lobe consolidation. Mild left basilar atelectasis is similar. No left pleural effusion or pneumothorax. BONES AND SOFT TISSUES: No focal osseous lesion. The soft tissues are normal. IMPRESSION: No evidence of pneumothorax. Small circumferential right pleural effusion. Stable right lower lobe atelectasis. Signed by: Dr. Jessica Meehan MD on 07/09/2019 7:00 AM
[2019-07-09] MEDS: IPRATROPIUM BROMIDE 0.02% 2.5 ML NEB NEB PRN (07:20)
[2019-07-09] MEDS: METOPROLOL SUCCINATE 25 MG TAB XL PO SCH ×2 (08:33→16:09)
[2019-07-09] MEDS: DOCUSATE SODIUM 100 MG CAP PO SCH ×2 (08:33→16:09)
[2019-07-09] MEDS: SALINE 0.65% NAS SOLN 1 SPRAY BTL SCH ×3 (11:03→20:52)
--- NOTE | 2019-07-09 11:43 | NUR ---
Pulmonary Medicine DATE 07/09/2019 SUBJECTIVE: 3 L/min oxygen NC delivery patient remains in the ICU now after surgery. seen on multiple occasions after surgery. chest tubes on suction. small air leak only. today small liquid output. eating clears liquid diet REVIEW OF SYSTEMS: No headaches, no rash PHYSICAL EXAMINATION: VITAL SIGNS: vital signs noted, reviewed per the chart record. GENERAL: no acute distress, alert, calm HEENT: Normocephalic, atraumatic. NECK: Supple. Throat midline. LUNGS: Bilateral air entry, mild decreased BS at bases CARDIOVASCULAR: S1, S2. No murmurs, rubs, or gallops. ABDOMEN: Soft, nontender. EXTREMITIES: No clubbing. No cyanosis. no edema. INTEGUMENT: No rash. No purpura. LABORATORY DATA: k 4.5, cr 0.56. wbc 15, hct 32, plt 625 IMPRESSION AND PLAN: 1. Massive right-sided lymphocytic pleural effusion, malignancy related Epithelial cell origin NOS, based on cell markers. ?lung cancer ?other --post operative, s/p 07/08/19 minithoracotomy with decortication and pleurodesis 2. Chronic smoker. 3. Hyponatremia, possible SIADH. Resolving 4. Mild allergies. 5. Mild gastroesophageal reflux disease. 6. elevated lfts Follow with thoracic surgery team Continue chest tubes in place, management per surgeon Follow pathology for delineation of the malignancy Antibiotics per ID Thank you very much, Dr. Ortiz, for this consult. Please call for question
--- NOTE | 2019-07-09 13:15 | Progress Note ---
DATE: SUBJECTIVE: Ms. Figueroa is doing better post surgery. There is no new complaint and the patient underwent right thoracoscopic procedure, drainage of loculated right pleural effusion, full decortication of the right lung, biopsy of the pleura, mechanical pleurodesis multilevel intercostal nerve block. The patient is complaining of pain but overall doing better. All cultures still pending. There is no new information. Her white count is 15.3, hemoglobin is 10. Sodium 133, potassium 4.5 with a creatinine of 0.55. Pathology still pending. PHYSICAL EXAMINATION: GENERAL: She is currently alert and oriented, does not seem to be in acute distress. VITAL SIGNS: Stable. Currently afebrile. HEENT: She is not icteric. NECK: Supple. CHEST: Crackles bilateral. COR: S1, S2. ABDOMEN: Soft. IMPRESSION: Pleural effusion lymphocytic, concerned about malignancy. Pathology still pending. Chronic smoker, superimposed pneumonia, better; hyponatremia, SIADH, probably better. From Infectious Disease point of view, we are still waiting on the cultures. She is currently on levofloxacin. Stable to finish a total of 2 weeks. Further recommendations to follow. MD KEENAN Lozoya/VIVEK /[id number]
--- NOTE | 2019-07-09 20:00 | NUR ---
Dr Vieira was notified that patient did not have any UOP since 0600. New order rec'd for straight cath and to call back if low UOP with straight cath
--- NOTE | 2019-07-09 22:00 | NUR ---
Straight cath performed and 500ml light hawk urine UOP noted.
[2019-07-10] VITALS (21 sets, daily range): BP systolic 86–153; BP diastolic 62–76
[2019-07-10] MEDS: ACETAMINOPHEN/CODEINE 300MG - 30MG TAB PO PRN ×3 (01:30→14:43)
[2019-07-10 05:05] LABS: BASOPHILS # (AUTO) 0.1 (0.0-0.1); BASOPHILS % 0.3 % (0.0-1.0); EOSINOPHILS # (AUTO) 0.3 (0.0-0.4); EOSINOPHILS % 1.9 % (0.0-6.0); HEMATOCRIT 35.1 % (34.2-44.1); HEMOGLOBIN 11.6 g/dL (12.0-16.0); LYMPHOCYTES # (AUTO) 1.2 (1.0-3.2); LYMPHOCYTES % 7.8 % (18.0-39.1); MEAN CORPUSCULAR HEMOGLOBIN 29.8 pg (28-32); MEAN CORPUSCULAR VOLUME 90.2 fL (81-99); MONOCYTES # (AUTO) 0.9 (0.2-0.8); MONOCYTES % 5.6 % (4.4-11.3); NEUTROPHILS # (AUTO) 12.9 (2.1-6.9); NEUTROPHILS % 83.7 % (38.7-80.0); PLATELET COUNT 662 x10e3/uL (140-360); RED BLOOD COUNT 3.89 x10e6/uL (3.6-5.1); RED CELL DISTRIBUTION WIDTH 13.5 % (11.7-14.4)
[2019-07-10 05:31] LABS: ANION GAP 14.4 mmol/L (8-16); BLOOD UREA NITROGEN 11 mg/dL (7-26); BUN/CREATININE RATIO 20 (6-25); CALCIUM 8.5 mg/dL (8.4-10.2); CARBON DIOXIDE 23 mmol/L (22-29); CHLORIDE 97 mmol/L (98-107); CREATININE, SERUM 0.56 mg/dL (0.57-1.11); EST GLOMERULAR FILTRATION RATE > 60 ML/MIN (60-); GLUCOSE 104 mg/dL (74-118); MAGNESIUM 1.8 MG/DL (1.3-2.1); POTASSIUM 4.4 mmol/L (3.5-5.1); SODIUM 130 mmol/L (136-145)
--- NOTE | 2019-07-10 05:49 | Diagnostic Imaging Report ---
EXAMINATION: CHEST SINGLE (PORTABLE) COMPARISON: Chest x-ray 07/09/2019 INDICATION: ^chest tube maintenance ^[id number] ^0445 DISCUSSION: Frontal view of the chest obtained at 0420 hours. HEART AND MEDIASTINUM: The heart is top normal in size, stable. Surgical clips in the upper mediastinum. LINES: Right IJ catheter terminates in the SVC. 2 right-sided chest tubes are stable in position. LUNGS/PLEURA: Right lower lobe consolidation has somewhat improved. Left basilar atelectasis/consolidation is stable. No interstitial edema. Right circumferential pleural effusion is stable. Stable trace left pleural effusion. No pneumothorax BONES AND SOFT TISSUES: No focal osseous lesion. The soft tissues are normal. IMPRESSION: 1. Stable support devices. 2. Some improvement in right lower lobe consolidation. Stable left lower lobe atelectasis/consolidation. 3. Stable right pleural effusion. Signed by: Dr. Jessica Meehan MD on 07/10/2019 5:46 AM
[2019-07-10] MEDS: ACETAMINOPHEN 325 MG TAB PO PRN (07:18)
[2019-07-10] MEDS: DOCUSATE SODIUM 100 MG CAP PO SCH ×2 (08:10→16:09)
[2019-07-10] MEDS: SALINE 0.65% NAS SOLN 1 SPRAY BTL SCH ×3 (08:11→20:30)
[2019-07-10] MEDS: METOPROLOL SUCCINATE 25 MG TAB XL PO SCH ×2 (08:12→16:11)
--- NOTE | 2019-07-10 12:59 | NUR ---
Pulmonary Medicine DATE 07/10/2019 SUBJECTIVE: ate 25% 2 L/min oxygen CXR with bilateral small effusions, right infiltrate, chest tube in place chest tube +2 cm pressure on gauge, but no active air leak after a few minutes. patient with waterseal. liquid output 50-60 cc/12 hrs REVIEW OF SYSTEMS: No headaches, no rash PHYSICAL EXAMINATION: VITAL SIGNS: vital signs noted, reviewed per the chart record. GENERAL: no acute distress, alert, calm HEENT: Normocephalic, atraumatic. NECK: Supple. Throat midline. LUNGS: Bilateral air entry, mild decreased BS at bases CARDIOVASCULAR: S1, S2. No murmurs, rubs, or gallops. ABDOMEN: Soft, nontender. EXTREMITIES: No clubbing. No cyanosis. no edema. INTEGUMENT: No rash. No purpura. LABORATORY DATA: k 4.4, cr 0.56. wbc 15, hct 35, plt 662 IMPRESSION AND PLAN: 1. Massive right-sided lymphocytic pleural effusion, malignancy related Epithelial cell origin NOS, based on cell markers. ?lung cancer ?other --post operative, s/p 07/08/19 minithoracotomy with decortication and pleurodesis 2. Chronic smoker. 3. Hyponatremia, possible SIADH. Resolving 4. Mild allergies. 5. Mild gastroesophageal reflux disease. 6. elevated lfts Continue chest tubes in place, management per surgeon Follow pathology for delineation of the malignancy Antibiotics per ID Mobilize OOB Start enoxaparin dvt ppx tomorrow Can leave the ICU Thank you very much, Dr. Ortiz, for this consult. Please call for question
--- NOTE | 2019-07-10 13:33 | NUR ---
Wounds clean Breathing comfortably No air leak in Pleurevacs Chest tube drainage about 60 cc overnight chest tubes to water seal transfer to CU
[2019-07-10] MEDS: ONDANSETRON HCL 4 MG ORAL DISINTEGRATING TAB PO PRN (19:31)
--- NOTE | 2019-07-10 20:16 | Progress Note ---
DATE: SUBJECTIVE: Ms. Figueroa remains in intensive care unit, on oxygen 2 L. OBJECTIVE: HEENT: Not icteric. NECK: Supple. CHEST: Crackles bilateral. COR: S1 and S2. No S3, S4, or murmurs. ABDOMEN: Soft. IMPRESSION: Right side lymphocytic pleural effusion, concerned about malignancy, epithelial cell in origin, not otherwise specified. The patient is status post mini thoracotomy on 07/08/2019, so far stable. Chronic smoker. She is currently on Tylenol, lorazepam; off antibiotic, stable. Continue supportive care. We will follow. MD KEENAN Lozoya/MODL /[id number]
--- NOTE | 2019-07-10 21:27 | NUR ---
PATIENT DIAPER BARELY WET, BLADDER OBVIOUSLY DISTENDED AND TENDER TO TOUCH. BLADDER SCAN REVEALS 625ML OF URINE RETENTION IN THE BLADDER. DR DUBON WAS CONSULTED TODAY DUE TO URINARY RETENTION SO CALLED AND UPDATED ON PT CONDITION. ORDERED TO PLACE A BRANTLEY AND SENT URINE SAMPLE FOR UA WITH CULTURE. COMPLETED AND PT NOW LAYING IN BED COMFORTABLE.
[2019-07-10 22:32] LABS: BILIRUBIN,URINE NEGATIVE (NEGATIVE); CLARITY,URINE CLEAR (CLEAR); COLOR,URINE YELLOW (YELLOW); KETONES,URINE NEGATIVE (NEGATIVE); LEUKOCYTE ESTERASE ,URINE TRACE (NEGATIVE); NITRITE,URINE NEGATIVE (NEGATIVE); PROTEIN,URINE DIPSTICK NEGATIVE (NEGATIVE); URINE UROBILINOGEN 0.2 mg/dL (0.2 - 1)
[2019-07-10 22:43] LABS: BACTERIA,URINE FEW /HPF; EPITHELIAL CELLS,URINE FEW /LPF; MUCUS,URINE MANY (RARE)
[2019-07-11] VITALS (9 sets, daily range): BP systolic 81–113; BP diastolic 50–71
[2019-07-11] MEDS: ACETAMINOPHEN/CODEINE 300MG - 30MG TAB PO PRN ×3 (03:03→17:59)
[2019-07-11 05:47] LABS: BASOPHILS % 0.3 % (0.0-1.0); EOSINOPHILS # (AUTO) 0.3 (0.0-0.4); EOSINOPHILS % 2.5 % (0.0-6.0); HEMATOCRIT 28.1 % (34.2-44.1); LYMPHOCYTES # (AUTO) 0.9 (1.0-3.2); LYMPHOCYTES % 8.1 % (18.0-39.1); MEAN CORPUSCULAR HEMOGLOBIN 29.2 pg (28-32); MEAN CORPUSCULAR HGB CONC 32.7 g/dL (31-35); MEAN CORPUSCULAR VOLUME 89.2 fL (81-99); MONOCYTES # (AUTO) 0.9 (0.2-0.8); MONOCYTES % 7.7 % (4.4-11.3); NEUTROPHILS # (AUTO) 9.1 (2.1-6.9); PLATELET COUNT 571 x10e3/uL (140-360); RED BLOOD COUNT 3.15 x10e6/uL (3.6-5.1); RED CELL DISTRIBUTION WIDTH 13.5 % (11.7-14.4)
[2019-07-11 05:57] LABS: HEMOGLOBIN 9.2 g/dL (12.0-16.0)
[2019-07-11 06:19] LABS: ALANINE AMINOTRANSFERASE 23 IU/L (0-55); ALBUMIN 1.3 g/dL (3.5-5.0); ALBUMIN/GLOBULIN RATIO 0.4 (0.8-2.0); ALKALINE PHOSPHATASE 148 IU/L (40-150); ANION GAP 11.7 mmol/L (8-16); BLOOD UREA NITROGEN 11 mg/dL (7-26); BUN/CREATININE RATIO 22 (6-25); CALCIUM 7.6 mg/dL (8.4-10.2); CARBON DIOXIDE 26 mmol/L (22-29); CHLORIDE 98 mmol/L (98-107); CREATININE, SERUM 0.49 mg/dL (0.57-1.11); EST GLOMERULAR FILTRATION RATE > 60 ML/MIN (60-); GLUCOSE 84 mg/dL (74-118); POTASSIUM 3.7 mmol/L (3.5-5.1); SODIUM 132 mmol/L (136-145)
--- NOTE | 2019-07-11 07:00 | Diagnostic Imaging Report ---
EXAMINATION: CHEST SINGLE (PORTABLE) COMPARISON: 07/10/2019 INDICATION: ^chest tube maintenance ^[id number] ^0610 DISCUSSION: Frontal view of the chest obtained at 0624 hours. HEART AND MEDIASTINUM: Stable cardiomegaly LINES: Right IJ catheter terminates in the SVC. 2 left-sided chest tubes are stable in position. LUNGS/PLEURA: Circumferential right pleural effusion is stable. Underlying airspace disease in the inferior lung is stable. Minimal interstitial prominence in the right lung. No interstitial thickening of the left lung. Left basilar airspace opacity and small effusion are unchanged. No pleural effusion or pneumothorax. BONES AND SOFT TISSUES: Stable. IMPRESSION: 1. Stable support devices. 2. Increasing interstitial prominence of the right upper lobe. Right and left lower lobe airspace opacities are unchanged. Stable circumferential right pleural effusion. No pneumothorax. Signed by: Dr. Jessica Meehan MD on 07/11/2019 6:56 AM
[2019-07-11] MEDS: DOCUSATE SODIUM 100 MG CAP PO SCH ×2 (08:46→17:46)
[2019-07-11] MEDS: SALINE 0.65% NAS SOLN 1 SPRAY BTL SCH ×3 (09:06→21:00)
[2019-07-11] MEDS: METOPROLOL SUCCINATE 25 MG TAB XL PO SCH ×2 (09:07→17:50)
--- NOTE | 2019-07-11 10:54 | Progress Note ---
DATE: SUBJECTIVE: The patient is seen and evaluated. Nurse in her room. Clinically, no acute distress. REVIEW OF SYSTEMS: Improved breathing. Complaints that constipated and she has urinary retention, received العلي cath last night, remains with 2 chest tubes. Appetite is good. No fever. No chills. No chest pain. No rash. No headache. PHYSICAL EXAMINATION: VITAL SIGNS: Temperature 98.3, pulse 80, respiration 15, and blood pressure 95/50. GENERAL: Alert and oriented, very pleasant, comfortable in bed, no acute distress. CV: S1 and S2. CHEST: Equal expansion. Decreased breath sounds. No acute distress. ABDOMEN: Soft and nontender. Positive bowel sounds. HEENT: Moist. No pallor. No JVD. EXTREMITIES: No significant edema, maybe trace, moves all. The patient has 2 chest tubes that have not drained since the patient transferred out of ICU last night. Per my discussion with staff, the patient also remains on O2 nasal cannula. The patient is not on any pressors. MEDICATIONS: Medication list reviewed and from Infectious Disease point of view, the patient is off antibiotics. LABORATORY STUDIES: White count improved to 11.26 from 15.42, hemoglobin 9.2, and platelet 571. Sodium 132, potassium 3.7, and creatinine is 0.49. AST improved to 18. ALT improved to 23. ALP improved to 148. Total protein is down from 5.5 to 4.4 with an albumin down from 1.9 to 1.3. Serology; coronavirus PCR not detected on 06/23, 06/27, and 07/06. MICROBIOLOGY: Pleural fluid from 07/07, negative. Cultures, so far pending AFB and fungal. Urine culture from 07/09, is pending. IMAGING: Chest x-ray from today showed stable support devices, but increasing interstitial prominence of the right upper lobe. Right and left lower lobe airspace opacity are unchanged with stable circumferential right pleural effusion with no pneumothorax. ASSESSMENT AND PLAN: 1. Lymphocytic right-sided pleural effusion. The patient had thoracentesis with concern of malignancy. The patient is status post thoracotomy on 07/08/2019. The patient is status post antibiotics. Leukocytosis is improved. Remains constipated and with 2 chest tubes as mentioned above without any drainage since last night, where she came out of ICU. Follow up with the cultures and monitor the patient clinically. 2. Urinary retention-status post العلي catheter placement. Urine cultures pending. Leukocytosis resolved. 3. Electrolyte abnormalities, corrected. 4. Elevated LFT, resolved. 5. Anemia. Hemoglobin at 11.6. 6. Continue to monitor the patient clinically and follow with the labs. 7. Discussed with Dr. Yee in details. Please refer to chart for more information. Dictated by Alfonso Perez) KEVON Little Zaid Yee MD /MODL /[id number]
--- NOTE | 2019-07-11 11:31 | NUR ---
Pulmonary Medicine DATE 07/11/2019 SUBJECTIVE: increased abd distension yesterday wade in place now for retention chest tube x [address] 2 L/min oxygen REVIEW OF SYSTEMS: No headaches, no rash PHYSICAL EXAMINATION: VITAL SIGNS: vital signs noted, reviewed per the chart record. GENERAL: no acute distress, alert, calm HEENT: Normocephalic, atraumatic. NECK: Supple. Throat midline. LUNGS: Bilateral air entry, mild decreased BS at bases CARDIOVASCULAR: S1, S2. No murmurs, rubs, or gallops. ABDOMEN: Soft, nontender. EXTREMITIES: No clubbing. No cyanosis. no edema. INTEGUMENT: No rash. No purpura. LABORATORY DATA: k 3.7, cr 0.49. wbc 11, hct 28, plt 571. IMPRESSION AND PLAN: 1. Massive right-sided lymphocytic pleural effusion, malignancy related Epithelial cell origin NOS, based on cell markers. ?lung cancer ?other --post operative, s/p 07/08/19 minithoracotomy with decortication and pleurodesis 2. Chronic smoker. 3. Hyponatremia, possible SIADH. Resolving 4. Mild allergies. 5. Mild gastroesophageal reflux disease. 6. elevated lfts 7. urinary retention Continue chest tubes in place, management per surgeon Follow pathology for delineation of the malignancy Antibiotics per ID, now off Mobilize OOB Enoxaparin dvt ppx Wade for urinary retention Thank you very much, Dr. Ortiz, for this consult. Please call for question
--- NOTE | 2019-07-11 15:40 | NUR ---
Nutrition Intervention Note RD Recommendation(s) for Physician: -Continue Regular diet Plan of Care: RD following, monitoring for tolerance and adequacy Nutrition reason for involvement: Follow up RD Assessment 07/10: Follow up. Chart reviewed. Pt stated she is eating about 75% of her meals. No N/V/D/C or chewing/swallowing issues at this time. Will continue to monitor. 07/07: Follow up. Pt out of room for surgery- VATS procedure today due to pleural effusion. Pt NPO, previous tolerating diet and eating well- noted 75-100% meal intake. Chart reviewed. Will continue to monitor. 06/30: Follow up. Pt discussed during am MDR, surgery pending . 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 Pt reports good appetite and po intake, noted 75-100% meal intake per chart. Pt denies any GI distress. Pt with no nutrition related questions or concerns at time of visit. Will continue to monitor. (06/25/19) Pt is a 69 year old female admitted with pneumonia. Pt stated her appetite was down and eating < 50% for the past 2 weeks, but her appetite has improved today. Pt stated she ate all of her breakfast and lunch today. Pt also mentioned she had lost weight and had weighed 166 lbs 2 weeks ago. Pt currently has a weight of 162 lbs in chart; therefore, this would be a 2% weight loss in 2 weeks. Pt was interested in a nutrition supplement. Recommend Ensure Compact BID for added nutrition. Will continue to monitor. Principal Problems/Diagnoses: pneumonia PMH: none GI: LBM 07/09 Skin: no pressure ulcer or wounds Labs: 07/10: Na 132, K 3.7, BUN 11, Cr 0.49, Glu 84 07/07: Na 136, Cr 4, BUN 9, Cr 0.52, Gluc 92 06/29: Na 137, K 3.7, BUN 8, Cr 0.55, Gluc 92, Ca 8 Meds: colace, zofran, lovenox Ht: 63 inches Wt: 171.38 lb (07/07), 148.5 lb (06/30)- questionable wt change, 162 lbs (06/24) BMI: 28.7 kg/m2 IBW: 115 lbs Malnutrition Evaluation (06/25/19) The patient does not meet criteria for a specified degree of malnutrition at this time. Will re-evaluate at follow-up as appropriate. Nutrition Prescription (Diet Order): regular Estimated Nutritional Needs: [id number] calories/day (18-20 kcal/kg CBW) Weigh used: 162 lbs 74-110 g protein/day (1-1.5 g pro/kg CBW) Weight used: 162 lbs Diet Adequacy: pt is meeting calorie and protein needs Tolerance: Tolerating PO Diet Education Needs Assessment: Diet education not indicated Nutrition Care Level: low Nutrition Diagnosis: Unintended weight loss related to decreased ability to consume sufficient energy secondary to decreased appetite as evidenced by 2% weight loss in 2 weeks. Goal: Patient will meet 75-100% of estimated needs by follow up Progress: goal met Interventions: -General healthful diet Monitoring/Evaluation: -Total energy intake, Total protein intake, Weight change Signed: Kim Adorno RD, LD
[2019-07-11] MEDS: ENOXAPARIN SOD INJ 40 MG/0.4 ML SYR SC SCH (17:46)
--- NOTE | 2019-07-11 21:30 | Consultation ---
DATE OF CONSULTATION: 07/11/2019 Urology Consultation. REASON FOR CONSULTATION: Urinary retention. HISTORY OF PRESENT ILLNESS: Anabell Figueroa is a 69-year-old woman with a history of urinary tract infections in the past. She denies hematuria, dysuria, or urinary tract infections. She did have some both emergent stress type urinary incontinence, but this may have been more of overflow incontinence due to the fact that she had urinary retention for over 600 mL. The patient is currently admitted with lung problems. She had a decortication and has two chest tubes in. Urological consultation was sought due to the fact that the patient seemed to be retaining and required self-catheterization for large volumes at least 600 mL and I asked the nurse to place a العلي catheter in place and this has resulted in relief of the patient's symptomatology. PAST MEDICAL AND SURGICAL HISTORY: 1. 3, para 1, for a live child and two for nonviable children. 2. Status post right chest decortication. 3. Ex-smoker. 4. Admission for pneumonia. 5. History of EGD. 6. History of colonoscopy. 7. COPD. ALLERGIES: PENICILLIN. CURRENT MEDICATIONS: Please refer the MAR. SOCIAL HISTORY: The patient is currently denies smoking ethanol drug use. She used to be a smoker. She used to do clerical work. She has supportive son at the bedside. FAMILY HISTORY: Noncontributory to the active urological problems. REVIEW OF SYSTEMS: Discussed as above history of present illness, past medical history, otherwise negative for all systems. PHYSICAL EXAMINATION: GENERAL: Chronically ill-appearing 69-year-old woman, sitting up in bed, no apparent distress. VITAL SIGNS: She is currently afebrile. Vital signs currently stable. ABDOMEN: Soft, nondistended, and nontender without costovertebral angle tenderness. Kidneys not palpable without hepatosplenomegaly. No obvious evidence of hernia. GENITOURINARY: There is a العلي catheter in place, draining relatively clear urine out. For the remaining physical examination systems, please refer to the admission history and physical, any other physician's notes. LABORATORY STUDIES: The patient's urine culture is pending. White blood cell count 71628, hemoglobin 9.2, platelets 571,000. The patient's sodium is low at 132, calcium is low at 7.6, creatinine is normal at 0.49. Urinalysis significant for 6-10 rbc's and 11-20 wbc's. The patient did have bacteria and calcium oxalate crystals upon presentation to the emergency room. ASSESSMENT: 1. Urinary tract infections. 2. Mixed type urinary incontinence. 3. Urinary retention for over 600 mL. 4. Leukocytosis. 5. Hyponatremia. 6. Hypocalcemia. 7. Microhematuria. 8. العلي catheter in situ. 9. Anemia. PLAN: 1. Leave the العلي catheter in place. 2. We will plan to follow the patient up for urodynamics study in the office. 3. Hematological and electrolyte abnormalities per the primary team. 4. Cystoscopic examination may be warranted in the future. 5. We may perform a CT stone protocol once the patient's chest tubes are out. Thank you very much for involving us in care of your patient. We will be happy to follow her along with you as well as an outpatient. Sudeep Diaz MD [place]/GENEVAL /[id number] cc: Dr. Abdalla
[2019-07-11] MEDS: ACETAMINOPHEN 325 MG TAB PO PRN (22:42)
[2019-07-12] VITALS (10 sets, daily range): BP systolic 87–123; BP diastolic 56–106
--- NOTE | 2019-07-12 06:42 | Diagnostic Imaging Report ---
EXAMINATION: CHEST SINGLE (PORTABLE) COMPARISON: Chest x-ray 07/11/2019 INDICATION: ^chest tube maintenance ^[id number] ^0600 DISCUSSION: Frontal view of the chest obtained at 0611 hours. HEART AND MEDIASTINUM: Stable cardiomegaly LINES: Right IJ catheter terminates in the SVC. 2 right chest tubes are stable in position LUNGS/PLEURA: Circumferential right pleural effusion is stable. Interstitial opacities in the upper right lobe are stable. No pneumothorax. Airspace opacities in the right lower lobe are stable. Stable small left pleural effusion and atelectasis. BONES AND SOFT TISSUES: Unremarkable. IMPRESSION: 1. Support devices as described above. 2. Stable interstitial opacities and bibasilar airspace opacities. Stable right pleural effusion. No pneumothorax. Signed by: Dr. Jessica Meehan MD on 07/12/2019 6:39 AM
[2019-07-12] MEDS: DOCUSATE SODIUM 100 MG CAP PO SCH ×2 (09:24→18:36)
[2019-07-12] MEDS: SALINE 0.65% NAS SOLN 1 SPRAY BTL SCH ×3 (09:24→21:00)
[2019-07-12] MEDS: ACETAMINOPHEN/CODEINE 300MG - 30MG TAB PO PRN ×3 (09:25→19:54)
[2019-07-12] MEDS: METOPROLOL SUCCINATE 25 MG TAB XL PO SCH ×2 (09:37→17:00)
[2019-07-12] MEDS ORDERED: LACTULOSE SYRUP 20 GM/30 ML UDC PO PRN (12:45)
--- NOTE | 2019-07-12 14:43 | Progress Note ---
DATE: Internal Medicine Progress Note SUBJECTIVE: The patient is complaining of constipation. PHYSICAL EXAMINATION: VITAL SIGNS: Temperature 98.1, heart rate 86 per minute, respiratory rate is 25 per minute, blood pressure 102/56, oxygen saturation 96%. HEART: Showed regular rhythm. Normal S1, S2 sound. LUNGS: Clear bilaterally. The patient has had chest tubes on the right side. ABDOMEN: Soft. EXTREMITIES: Show no evidence of cyanosis, edema, or trauma. LABORATORY DATA: On the blood work, we have a urinalysis, which came back showing leukocytes and red blood cells, and white blood cells. On the CBC; white blood count 11.26, hemoglobin 9.2, hematocrit 28.1, and platelet count 571,000. On the BMP; sodium 132, potassium 3.7, chloride 98, CO2 26, BUN 11, creatinine 0.49, glucose 84, calcium 7.6, total bilirubin 0.2, AST 18, ALT 23, alkaline phosphatase 148. Chest x-ray, the last one showed some supportive devices, stable interstitial opacities and bibasilar airspace opacities. Stable right pleural effusion. No pneumothorax. FINAL IMPRESSION: 1. Right pleural effusion, status post chest tube placement. 2. Lobar pneumonia. 3. Chronic obstructive pulmonary disease exacerbation. 4. Anemia of chronic disease. 5. Urinary retention. 6. Hyponatremia. 7. Constipation. PLAN OF TREATMENT: Continue chest tube placement. Continue monitoring BUN, creatinine, electrolytes. So far all the culture have been negative. Fluid culture negative. Blood culture negative. Throat culture negative. Urine culture negative. We are going to as I said continue with the chest tube until there is no drainage. Continue Tylenol 650 mg q.4 hours as needed for pain or fever. Tylenol 3 one tablet every 6 hours as needed for [id number] pain, Tessalon 100 mg three times a day as needed for cough, Colace 100 mg twice a day, Lovenox 40 mg subcutaneously daily, albuterol and Atrovent q.6 hours as needed for shortness of breath, metoprolol 25 mg twice a day, metoprolol 5 mg IV push as needed for tachycardia, morphine 2 mg IV q.3 hours as needed for severe pain, Zofran 4 mg p.o. q.4 hours as needed for nausea and vomiting. [place] solution three times a day. We are going to also start the patient on Amitiza 24 mcg p.o. twice a day for narcotic induced constipation, lactulose 20 g q.12 hours as needed for constipation. Case has been discussed with the patient. MD LOY Medina/VIVEK /[id number]
--- NOTE | 2019-07-12 16:31 | NUR ---
PROGRESS NOTE LABORATORY DATA: On the blood work, we have a urinalysis, which came back showing leukocytes and red blood cells, and white blood cells. On the CBC; white blood count 11.26, hemoglobin 9.2, hematocrit 28.1, and platelet count 571,000. On the BMP; sodium 132, potassium 3.7, chloride 98, CO2 26, BUN 11, creatinine 0.49, glucose 84, calcium 7.6, total bilirubin 0.2, AST 18, ALT 23, alkaline phosphatase 148. Chest x-ray, the last one showed some supportive devices, stable interstitial opacities and bibasilar airspace opacities. Stable right pleural effusion. No pneumothorax. FINAL IMPRESSION: 1. Right pleural effusion, status post chest tube placement. 2. Lobar pneumonia. 3. Chronic obstructive pulmonary disease exacerbation. 4. Anemia of chronic disease. 5. Urinary retention. 6. Hyponatremia. 7. Constipation. [id number]
[2019-07-12] MEDS: LUBIPROSTONE 24 MCG CAP PO SCH (18:36)
[2019-07-12] MEDS: ENOXAPARIN SOD INJ 40 MG/0.4 ML SYR SC SCH (18:36)
[2019-07-12] MEDS: IPRATROPIUM BROMIDE 0.02% 2.5 ML NEB NEB PRN (20:10)
--- NOTE | 2019-07-12 20:11 | NUR ---
Received change of shift report from Am nurse. Walking rounds completed.
--- NOTE | 2019-07-12 20:12 | NUR ---
Pulmonary Medicine DATE 07/12/2019 SUBJECTIVE: chest tube x [address] no air leak patient with no bowel movement again he ate small to moderate amounts 2 L/min oxygen REVIEW OF SYSTEMS: No headaches, no rash PHYSICAL EXAMINATION: VITAL SIGNS: vital signs noted, reviewed per the chart record. GENERAL: no acute distress, alert, calm HEENT: Normocephalic, atraumatic. NECK: Supple. Throat midline. LUNGS: Bilateral air entry, mild decreased BS at bases CARDIOVASCULAR: S1, S2. No murmurs, rubs, or gallops. ABDOMEN: Soft, nontender. EXTREMITIES: No clubbing. No cyanosis. no edema. INTEGUMENT: No rash. No purpura. LABORATORY DATA: k 3.7, cr 0.49. wbc 11, hct 28, plt 571 IMPRESSION AND PLAN: 1. Massive right-sided lymphocytic pleural effusion, malignancy related Epithelial cell origin NOS, based on cell markers. ?lung cancer ?other --post operative, s/p 07/08/19 minithoracotomy with decortication and pleurodesis 2. Chronic smoker. 3. Hyponatremia, possible SIADH. Resolving 4. Mild allergies. 5. Mild gastroesophageal reflux disease. 6. elevated lfts 7. urinary retention Continue chest tubes in place, management per surgeon Follow pathology for delineation of the malignancy Antibiotics per ID, now off Mobilize OOB Enoxaparin dvt ppx العلي for urinary retention per Thank you very much, Dr. Ortiz, for this consult. Please call for question
--- NOTE | 2019-07-12 23:00 | NUR ---
Patient c/o pain. Given meds as ordered by MD. Continue monitor.
[2019-07-13] VITALS (11 sets, daily range): BP systolic 101–123; BP diastolic 61–71
--- NOTE | 2019-07-13 00:15 | NUR ---
Patient resting quitly at this time. No c/o noted.
[2019-07-13 05:34] LABS: BASOPHILS % 0.5 % (0.0-1.0); EOSINOPHILS # (AUTO) 0.4 (0.0-0.4); EOSINOPHILS % 4.5 % (0.0-6.0); HEMATOCRIT 28.6 % (34.2-44.1); HEMOGLOBIN 9.3 g/dL (12.0-16.0); LYMPHOCYTES # (AUTO) 1.5 (1.0-3.2); LYMPHOCYTES % 16.8 % (18.0-39.1); MEAN CORPUSCULAR HEMOGLOBIN 29.2 pg (28-32); MEAN CORPUSCULAR HGB CONC 32.5 g/dL (31-35); MEAN CORPUSCULAR VOLUME 89.9 fL (81-99); MONOCYTES # (AUTO) 1.2 (0.2-0.8); MONOCYTES % 14.2 % (4.4-11.3); NEUTROPHILS # (AUTO) 5.5 (2.1-6.9); NEUTROPHILS % 63.3 % (38.7-80.0); PLATELET COUNT 594 x10e3/uL (140-360); RED BLOOD COUNT 3.18 x10e6/uL (3.6-5.1); RED CELL DISTRIBUTION WIDTH 13.3 % (11.7-14.4)
--- NOTE | 2019-07-13 06:44 | NUR ---
C.T with little or no output. No bubble. No c/o pain. Continue monitor.
--- NOTE | 2019-07-13 06:53 | Diagnostic Imaging Report ---
EXAMINATION: CHEST SINGLE (PORTABLE) COMPARISON: Chest x-ray 07/12/2019 INDICATION: ^chest tube maintenance ^[id number] ^0600 DISCUSSION: Frontal view of the chest obtained at 0546 hours. HEART AND MEDIASTINUM: The heart is top normal in size. The aorta is tortuous. LINES: Right IJ catheter terminates in the SVC. 2 right-sided chest tubes are stable in position. LUNGS/PLEURA: Right lower lobe infiltrate and circumferential right pleural effusion are stable. Interstitial opacities in the right upper lobe have diminished. Stable left pleural effusion. No pneumothorax. BONES AND SOFT TISSUES: Stable. IMPRESSION: 1. Support devices as described above. 2. Stable pleural effusions and bibasilar airspace opacities, right larger than left. No pneumothorax. Signed by: Dr. Jessica Meehan MD on 07/13/2019 6:50 AM
[2019-07-13] MEDS: DOCUSATE SODIUM 100 MG CAP PO SCH ×2 (09:43→19:23)
[2019-07-13] MEDS: LUBIPROSTONE 24 MCG CAP PO SCH ×2 (09:43→19:23)
[2019-07-13] MEDS: SALINE 0.65% NAS SOLN 1 SPRAY BTL SCH ×3 (09:43→21:00)
[2019-07-13] MEDS: ACETAMINOPHEN/CODEINE 300MG - 30MG TAB PO PRN ×3 (09:43→23:05)
[2019-07-13] MEDS: METOPROLOL SUCCINATE 25 MG TAB XL PO SCH ×2 (09:59→19:23)
--- NOTE | 2019-07-13 12:22 | Progress Note ---
DATE: Internal Medicine Progress Note. SUBJECTIVE: The patient is doing well. No significant complaint except for constipation. PHYSICAL EXAMINATION: VITAL SIGNS: Blood pressure 123/68, temperature 98.4, heart rate 77 per minute, respiratory rate is 27 per minute, and oxygen saturation 96%. HEART: Showed regular rhythm. Normal S1, S2 sound. LUNGS: Clear bilaterally. Slightly decreased on the right chest where she has a chest tube. ABDOMEN: Soft. EXTREMITIES: Show no edema. LABORATORY DATA: On the CBC, white blood count 8.71, hemoglobin 9.3, hematocrit 28.6, platelet count 584,000. On the BMP; sodium 132, potassium 3.7, chloride 98, CO2 26, BUN 11, creatinine 0.49, glucose 84, calcium 7.6, magnesium 1.8, total bilirubin 0.2, AST 18, ALT 23, alkaline phosphatase 148, total protein 4.4, albumin 1.3, globin 3.1. Influenza type A and B negative. Group A Streptococcus screen negative. Coronavirus completely negative times. Fluid shows some white blood cells, and red blood cells, 37% neutrophils, 58% lymphocytes. MICROBIOLOGY: Fluid culture is negative for 5 days. Urine culture is negative for 36 to 48 hours. IMPRESSION: 1. Right pleural effusion, which is malignant secondary to adenocarcinoma. 2. Lobar pneumonia. 3. Chronic obstructive pulmonary disease exacerbation. 4. Anemia of chronic disease. 5. Urinary retention. 6. Hyponatremia. 7. Constipation. PLAN OF TREATMENT: We are going to continue with current medication regimen. Continue monitoring the output through the chest tube. She is taking Tylenol 650 mg every 4 hours as needed for mild pain or fever. Tylenol No. 3 one tablet q.6 hours as needed for [id number]-[id number] pain. Cepastat every 4 hours as needed for sore throat, Tessalon 100 mg three times a day as needed for cough, Colace 100 mg twice a day, Lovenox 40 mg subcutaneously daily for DVT prophylaxis, Atrovent q.6 hours as needed for shortness of breath, lactulose 20 g twice a day as needed for constipation, Ativan 0.5 mg q.6 hours as needed for anxiety, has been discontinued. Amitiza 24 mcg p.o. twice a day for narcotic induced constipation. Continue metoprolol 25 mg twice a day. Continue metoprolol 5 mg IV q.4 hours as needed for tachycardia. Continue morphine 2 mg IV every 3 hours as needed for severe pain, Zofran 4 mg p.o. q.4 hours as needed for nausea and vomiting, nasal spray three times a day. MD LOY Medina/VIVEK /[id number]
--- NOTE | 2019-07-13 15:55 | Diagnostic Imaging Report ---
EXAMINATION: CHEST SINGLE (PORTABLE) COMPARISON: Chest radiograph 07/13/2019. INDICATION: s/p removal of chest tubes DISCUSSION: LINES: Right IJ central venous catheter terminates in the upper SVC. Interval removal of two right-sided chest tubes. LUNGS/PLEURA: Persistent small loculated right pleural effusion. Patchy bibasilar opacities. Stable small layering left pleural effusion. Mild interstitial opacities on the right. No evidence of pneumothorax. HEART AND MEDIASTINUM: The cardiomediastinal silhouette is unchanged. BONES AND SOFT TISSUES: No acute osseous abnormality. Small amount of subcutaneous emphysema in the right lateral chest wall. IMPRESSION: Interval removal of right-sided chest tubes without evidence of pneumothorax. Stable small loculated right and layering left pleural effusions with bibasilar opacities, which may represent atelectasis or infection in the appropriate clinical setting. Signed by: Dr. Nguyen Meyer MD on 07/13/2019 3:52 PM
--- NOTE | 2019-07-13 16:47 | NUR ---
Pulmonary Medicine DATE 07/13/2019 SUBJECTIVE: walked, but slowly RA fio2 wade in place no BM again REVIEW OF SYSTEMS: No headaches, no rash PHYSICAL EXAMINATION: VITAL SIGNS: vital signs noted, reviewed per the chart record. GENERAL: no acute distress, alert, calm HEENT: Normocephalic, atraumatic. NECK: Supple. Throat midline. LUNGS: Bilateral air entry, mild decreased BS at bases CARDIOVASCULAR: S1, S2. No murmurs, rubs, or gallops. ABDOMEN: Soft, nontender. EXTREMITIES: No clubbing. No cyanosis. no edema. INTEGUMENT: No rash. No purpura. LABORATORY DATA: wbc 9 IMPRESSION AND PLAN: 1. Massive right-sided lymphocytic pleural effusion, malignancy related Epithelial cell origin NOS, based on cell markers. ?lung cancer ?other --post operative, s/p 07/08/19 minithoracotomy with decortication and pleurodesis 2. Chronic smoker. 3. Hyponatremia, possible SIADH. Resolving 4. Mild allergies. 5. Mild gastroesophageal reflux disease. 6. elevated lfts 7. urinary retention D/c chest tubes d/c oxygen if tolerated Follow pathology for delineation of the malignancy Antibiotics per ID, now off Mobilize OOB Enoxaparin dvt ppx Wade for urinary retention per JOSSELIN Thank you very much, Dr. Ortiz, for this consult. Please call for question
--- NOTE | 2019-07-13 17:34 | Progress Note ---
DATE: SUBJECTIVE: Ms. Figueroa is doing better. No new complaints. She is still having some chest pain. Discussed with Cardiovascular Surgery and Pulmonary. The patient's chest tube was going to be removed today. PHYSICAL EXAMINATION: GENERAL: She is currently alert and oriented. VITAL SIGNS: Stable, afebrile. HEENT: She is not icteric. NECK: Supple. CHEST: Crackles bilateral. COR: S1 and S2. No S3, S4, or murmurs. ABDOMEN: Soft. IMPRESSION: 1. Pleural effusion, concern malignancy. 2. Pneumonia, improved. 3. History of smoking. 4. From Infectious Disease point of view, the patient is clinically doing well and stable. Discharge planning per other. From Infectious Disease, she will be discharged with no further antibiotic. MD KEENAN Lozoya/VIVEK /[id number]
[2019-07-13] MEDS: ENOXAPARIN SOD INJ 40 MG/0.4 ML SYR SC SCH (19:24)
--- NOTE | 2019-07-13 21:50 | Progress Note ---
DATE: CV Surgery. Wounds clean. Breathing comfortably. No air leak in the Pleur-evac. Pleur-evac drainage has been low. Path and other results still pending. Chest tubes discontinued. Dressing placed. Stat portable chest x-ray ordered. Good progress. Discussed with patient and son. MD ISAIAS Solitario/VIVEK /[id number]
[2019-07-13] MEDS: ONDANSETRON HCL 4 MG ORAL DISINTEGRATING TAB PO PRN (23:10)
[2019-07-14] VITALS (8 sets, daily range): BP systolic 106–122; BP diastolic 59–70
--- NOTE | 2019-07-14 | NUR ---
Patient updated on transfer to med surg unit room 208. Patient verbalized understanding.
--- NOTE | 2019-07-14 00:05 | NUR ---
Report given to Didi GALICIA for room 208. Patient stable. VS 123/65, 80, 19 RR, 96% on 1L NC, 98.7 orally. All personal belongings gather and to be transferred with patient.
--- NOTE | 2019-07-14 00:28 | NUR ---
Received the patient to the unit from room#188.aaox3.getting nasal canula 1litre oxygen getting.oriented to the unit.bed locked and in lowest position.phone and call light within reach.instructed to call for asistance as needed.stable condition.
--- NOTE | 2019-07-14 00:30 | NUR ---
Patient transferred to room 208. Accepting nurse at bedside. Patient A&Ox3, 02 1L NC. Oriented to room, environment and call light. All personal belongings transferred with patient. Patient stable. No issues or concerns noted. Bed locked and in lowest position.
--- NOTE | 2019-07-14 07:10 | NUR ---
Received bedside shift report. Patient resting at this time, alert in stable condition. Call light within reach.
--- NOTE | 2019-07-14 07:10 | NUR ---
BED SIDE SHIFT REPORT GIVEN TO ONCOMING RN.STABLE CONDITION.
--- NOTE | 2019-07-14 07:19 | Diagnostic Imaging Report ---
EXAMINATION: CHEST SINGLE (PORTABLE) COMPARISON: Chest x-ray 07/13/2019 INDICATION: ^chest tube maintenance DISCUSSION: Frontal view of the chest obtained at 0616 hours. HEART AND MEDIASTINUM: Stable mild cardiomegaly LINES: Right IJ catheter terminates in the SVC without pneumothorax. LUNGS/PLEURA: No change in infiltrates in the right lower lobe. Stable thickening of the right pleura. Diminishing blunting of the left lateral costophrenic angle. No new findings in the aerated left lung. No pneumothorax. BONES AND SOFT TISSUES: No focal osseous lesion. The soft tissues are normal. IMPRESSION: Diminishing left pleural effusion. Stable right pleural effusion or pleural thickening. No change in airspace opacities in the right lung. Signed by: Dr. Jessica Meehan MD on 07/14/2019 7:16 AM
[2019-07-14] MEDS: DOCUSATE SODIUM 100 MG CAP PO SCH ×2 (09:03→17:21)
[2019-07-14] MEDS: SALINE 0.65% NAS SOLN 1 SPRAY BTL SCH ×3 (09:03→21:00)
[2019-07-14] MEDS: METOPROLOL SUCCINATE 25 MG TAB XL PO SCH ×2 (09:03→17:22)
[2019-07-14] MEDS: LUBIPROSTONE 24 MCG CAP PO SCH ×2 (09:04→17:21)
--- NOTE | 2019-07-14 10:09 | NUR ---
IMM letter delivered and explained to pt. She verbalized understanding. Signed copy placed in chart. Copy to pt.
[2019-07-14] MEDS ORDERED: CEFTRIAXONE SOD 2 GM/NS 100 ML 100 ML IV SCH (11:30)
--- NOTE | 2019-07-14 11:55 | NUR ---
CALLED ESPERANZA FOX AT [phone] REGARDING ROCEPHIN ORDER. PHARMACY CONCERN FOR PENICILLIN ALLERGY. ORDERED TO DISCONTINUE ROCEPHIN AND BEGIN LEVAQUIN 500MG IVPB DAILY. ORDERS READ BACK AND VERIFIED. ENTERED ORDERED.
--- NOTE | 2019-07-14 11:59 | Progress Note ---
DATE: SUBJECTIVE: Anabell Figueroa is doing much better. She still has some shortness of breath. She still has some pain, but overall improving. PHYSICAL EXAMINATION: GENERAL: She is currently alert and oriented, does not seem in acute distress. VITAL SIGNS: Stable, currently afebrile. HEENT: She is not icteric. NECK: Supple. CHEST: Crackles on the right. HEART: S1 and S2. ABDOMEN: Soft. Bowel sounds present tenderness. EXTREMITIES: No edema. SKIN: No rash. LABORATORY DATA: Reviewed. Chart reviewed. IMPRESSION: 1. Pneumonia, concerned postobstructive. 2. Right pleural effusion, lymphocytic, concern malignancy. 3. Anemia. 4. Chronic obstructive pulmonary disease from history of smoking. 5. Discussed with the patient, discussed with her son. Await pathology. Chest tube to be removed by Pulmonary/Cardiovascular Surgery when she is fit. MD KEENAN Lozoya/VIVEK /[id number]
--- NOTE | 2019-07-14 12:29 | Progress Note ---
DATE: SUBJECTIVE: The patient is seen and evaluated. Available labs and notes reviewed. Discussed with Dr. Ortiz. Discussed with Dr. Yee. REVIEW OF SYSTEMS: The patient feels better overall. She think she had a good night last night. Shortness of breath is slowly improving. No nausea, vomiting, fever, chills, chest pain, headache, rash. PHYSICAL EXAMINATION: VITAL SIGNS: Temperature 97.5, pulse is 78, respiration 19, blood pressure 112/63. GENERAL: Alert and oriented, in no acute distress. CV: S1, S2. CHEST: Equal expansion. Decreased breath sounds. No acute distress. Also, chest tubes been removed. ABDOMEN: Soft, no tenderness or distention. HEENT: Moist. No pallor. No JVD. EXTREMITIES: Weak. Moves all. Trace edema. MEDICATIONS: Medication list reviewed. The patient is currently off antibiotics and no antibiotic noted on medication list. LABORATORY STUDIES: White count of 8.71, hemoglobin 9.3, platelet 594. No new BMP from today. MICROBIOLOGY: Urine culture 07/09 is negative 48 hours. Bronchial wash, AFB smear, and fungal pending. Pleural fluid from 07/07 negative. Again, pleural fluid from 06/23 negative on culture. Blood culture was negative on 06/22 and throat cultures showing usual respiratory tamra on 06/23/2019. IMAGING: Chest x-ray from today showed diminishing left pleural effusion, stable right pleural effusion or pleural thickening. No change in airspace opacity in the right lung. ASSESSMENT AND PLAN: 1. Pleural effusion, concern malignancy. 2. Pneumonia. 3. History of smoking. 4. The patient is status post mini thoracotomy with decortication and pleurodesis on 07/07/2021. 5. Gastroesophageal reflux disease. 6. Elevated LFT. 7. Urinary retention. 8. Again, discussed with Dr. Yee and attending, Dr. Ortiz. Please refer to chart for more information. Continue to monitor patient clinically. Follow with the labs. Currently off antibiotics. Thank you for this dictation. Dictated by Alfonso Little PA-C (Al) Zaid Yee MD /MODL /[id number]
[2019-07-14] MEDS ORDERED: SODIUM CHLORIDE 0.9% 250ML 250 ML ONE (12:48)
--- NOTE | 2019-07-14 12:51 | NUR ---
Pulmonary Medicine DATE 07/14/2019 SUBJECTIVE: wade UOP(+) BM assist mild to walk REVIEW OF SYSTEMS: No headaches, no rash PHYSICAL EXAMINATION: VITAL SIGNS: vital signs noted, reviewed per the chart record. GENERAL: no acute distress, alert, calm HEENT: Normocephalic, atraumatic. NECK: Supple. Throat midline. LUNGS: Bilateral air entry, mild decreased BS at bases CARDIOVASCULAR: S1, S2. No murmurs, rubs, or gallops. ABDOMEN: Soft, nontender. EXTREMITIES: No clubbing. No cyanosis. no edema. INTEGUMENT: No rash. No purpura. LABORATORY DATA: wbc 9, hct 29. IMPRESSION AND PLAN: 1. Massive right-sided lymphocytic pleural effusion, malignancy related Epithelial cell origin NOS, based on cell markers. ?lung cancer ?other --post operative, s/p 07/08/19 minithoracotomy with decortication and pleurodesis 2. Chronic smoker. 3. Hyponatremia, possible SIADH. Resolving 4. Mild allergies. 5. Mild gastroesophageal reflux disease. 6. elevated lfts 7. urinary retention Follow pathology for delineation of the malignancy Antibiotics per ID, now off Mobilize OOB Enoxaparin dvt ppx Wade for urinary retention per Thank you very much, Dr. Ortiz, for this consult. Please call for question
[2019-07-14] MEDS ORDERED: LEVOFLOXACIN 500MG/D5W 100ML 100 ML IV SCH (13:00)
--- NOTE | 2019-07-14 13:05 | NUR ---
Spoke to Dr. Ortiz and received order for LTAC. CM spoke to pt at bedside. She gave choice for [facility] and [facility]. Signed choice letter placed in front of chart. Copy to pt. Referral faxed to [facility] at [phone]. Jazzy with [facility] was informed of referral.
[2019-07-14] MEDS: METRONIDAZOLE 500MG/NS 100ML 100 ML IV SCH ×2 (14:10→21:30)
[2019-07-14] MEDS: ENOXAPARIN SOD INJ 40 MG/0.4 ML SYR SC SCH (17:22)
[2019-07-14] MEDS: ACETAMINOPHEN/CODEINE 300MG - 30MG TAB PO PRN (17:26)
--- NOTE | 2019-07-14 19:00 | NUR ---
Patient visited in room during nursing rounds. Patient alert and oriented x3. Ambulates with walker and 1 person assist prn. العلي in place for urinary retention. On 1L Humidified O2 NC. Both legs elevated with pillows. Both feet swollen (2+ pitting edema). Dressing on right side of chest (S/P removal of chest tube on 07/13/19. On IV antibiotic treatment.Call chapman within reach. Will monitor pt closely.
[2019-07-15] VITALS (8 sets, daily range): BP systolic 118–134; BP diastolic 60–73
[2019-07-15] MEDS: ACETAMINOPHEN/CODEINE 300MG - 30MG TAB PO PRN (04:18)
[2019-07-15] MEDS: METRONIDAZOLE 500MG/NS 100ML 100 ML IV SCH (06:10)
--- NOTE | 2019-07-15 08:32 | Diagnostic Imaging Report ---
Examination: Single AP view of the chest. COMPARISON: None. INDICATION: Chest tube maintenance DISCUSSION: Right internal jugular central venous catheter is unchanged in position the lungs remain reasonably well inflated. Right middle and lower lobe airspace disease with loss of the right heart border and right hemidiaphragm, unchanged. Circumferential thickening of the right pleura is also unchanged. Small left pleural effusion with probable passive atelectasis of the left lower lobe, unchanged. No new consolidation. Stable cardiomediastinal contour. No acute osseous abnormality. IMPRESSION: Stable right lower and middle lobe airspace disease with associated pleural effusion or pleural thickening. Stable small left pleural effusion with probable passive atelectasis of the posterior left lower lobe. Signed by: Dr. Giovanni Antonio M.D. on 07/15/2019 8:28 AM
[2019-07-15] MEDS: SALINE 0.65% NAS SOLN 1 SPRAY BTL SCH ×3 (09:11→20:57)
[2019-07-15] MEDS: LUBIPROSTONE 24 MCG CAP PO SCH ×2 (09:12→17:09)
[2019-07-15] MEDS: DOCUSATE SODIUM 100 MG CAP PO SCH ×2 (09:12→17:09)
[2019-07-15] MEDS: METOPROLOL SUCCINATE 25 MG TAB XL PO SCH ×2 (09:14→17:00)
--- NOTE | 2019-07-15 10:33 | Progress Note ---
DATE: SUBJECTIVE: The patient is seen and evaluated. Available labs and notes reviewed. Discussed with Dr. Yee. Please refer to chart for more information. REVIEW OF SYSTEMS: The patient feels much better. She is able to ambulate with the help of a walker from her room to the nurses station and back with no significant shortness of breath which you could not do before the surgery. No nausea, vomiting, fever, chills, chest pain, headache, rash, dysuria, cough. OBJECTIVE: VITAL SIGNS: Temperature is 98.2, pulse 91, respirations 16, blood pressure 142/85. Recheck vital signs: Temperature 98.1, pulse is 77, respirations 19, blood pressure 132/69. The patient has been afebrile. GENERAL: Alert and oriented x3. CV: S1 and S2. CHEST: Equal expansion. Decreased breath sounds in no acute distress. ABDOMEN: Soft. Nontender. Nondistention. HEENT: Moist. No pallor. No JVD. EXTREMITIES: Maybe 1+ edema of lower extremities, both elevated. Moves all extremities. No focal deficit. MEDICATIONS: Medication list reviewed. The patient is on Levaquin and Flagyl. LABORATORY STUDIES: White count of 8.71 improved from 11.26, hemoglobin 9.3, platelet 594. There is no new CBC or BMP available. Last creatinine was 0.49. MICROBIOLOGY: Bronchial wash, AFB and fungal pending with a culture of a poor fluid negative so far. RADIOLOGY STUDIES: Chest x-ray from today shows stable right lower and middle lobe airspace disease with associated pleural effusion or pleural thickening, stable small left pleural effusion with probably massive atelectasis of the posterior left lower lobe. ASSESSMENT AND PLAN: 1. Pleural effusion. Pathology suspicious for malignancy on 07/08/2019. 2. Pneumonia. 3. Gastroesophageal reflux disease. 4. Urinary retention. 5. Elevated liver function tests. 6. The patient is status post mini thoracotomy with decortication and pleurodesis on 07/08/2019. The patient is started on IV antibiotics. Discussed with the attending and discussed with Dr. Aguilar. The plan is for LTAC. Clinically, she seems improved, however, remains debilitated in need of aggressive rehab and further medical care. Continue to monitor patient clinically. Follow with the labs. Please refer to the chart for more information. Discussed with Dr. Yee in details. Dictated by Alfonso Little PA-C (Al) MD AURA Lozoya/VIVEK /[id number]
[2019-07-15] MEDS ORDERED: LEVOFLOXACIN 500 MG TAB PO SCH (13:00)
[2019-07-15] MEDS: METRONIDAZOLE 500 MG TAB PO SCH ×2 (14:00→22:09)
[2019-07-15] MEDS: ENOXAPARIN SOD INJ 40 MG/0.4 ML SYR SC SCH (17:09)
--- NOTE | 2019-07-15 19:10 | NUR ---
Patient visited in room during nursing rounds. Patient alert and oriented x3. Ambulates with walker and 1 person assist prn. العلي in place for urinary retention. On 1L Humidified O2 NC. Both legs elevated with pillows. Insertion site on right side (S/P removal of chest tube on 07/13/19) open to air and sutured. On IV antibiotic treatment.Call chapman within reach. Will monitor pt closely.
--- NOTE | 2019-07-15 19:19 | NUR ---
walking rounds complete, pt stable at this time.
[2019-07-15] MEDS ORDERED: ONDANSETRON HCL INJ 2MG/ML 2ML 2 MG/ML VIAL IV PRN (19:45)
--- NOTE | 2019-07-15 20:03 | NUR ---
Pulmonary Medicine DATE 07/15/2019 SUBJECTIVE: patient with more information regarding patholgoy, mullerian origin some emesis today patient with some walking today 1 L/min oxgyen REVIEW OF SYSTEMS: No headaches, no rash PHYSICAL EXAMINATION: VITAL SIGNS: vital signs noted, reviewed per the chart record. GENERAL: no acute distress, alert, calm HEENT: Normocephalic, atraumatic. NECK: Supple. Throat midline. LUNGS: Bilateral air entry, mild decreased BS at bases CARDIOVASCULAR: S1, S2. No murmurs, rubs, or gallops. ABDOMEN: Soft, nontender. EXTREMITIES: No clubbing. No cyanosis. no edema. INTEGUMENT: No rash. No purpura. LABORATORY DATA: k 3.7. bun 11, cr 0.69. IMPRESSION AND PLAN: 1. Massive right-sided lymphocytic pleural effusion, malignancy related Epithelial cell origin NOS, based on cell markers. ?lung cancer ?other --post operative, s/p 07/08/19 minithoracotomy with decortication and pleurodesis 2. Chronic smoker. 3. Hyponatremia, possible SIADH. Resolving 4. Mild allergies. 5. Mild gastroesophageal reflux disease. 6. elevated lfts 7. urinary retention 8. Pneumonia Follow pathology for delineation of the malignancy, apparent mullerian origin tumor Antibiotics per ID Mobilize OOB Enoxaparin dvt ppx العلي for urinary retention per more PT/OT, strengthen prior to surgery Thank you very much, Dr. Ortiz, for this consult. Please call for question
--- NOTE | 2019-07-15 22:45 | Consultation ---
DATE OF CONSULTATION: HISTORY OF PRESENT ILLNESS: Thank you very much for asking me to see this 69-year-old lady with a history of urinary tract infections. She had a history of both urgent and stress type of incontinence and has now been diagnosed with retention with overflow incontinence. Recently, she has been admitted with lung problems and had decortication of her lungs and has two chest tubes in. Gynecological consult was sought because of the malignant pleural effusion with cells suggestive of adenocarcinoma. Her abdominal ultrasound showed normal pancreas, no major abnormality in the abdomen. PAST MEDICAL HISTORY: Significant for 3, para 1, ex-smoker, admission here for pneumonia, EGD, colonoscopy, COPD, right chest decortication. ALLERGIES: TO PENICILLIN. MEDICATIONS: See the list. SOCIAL HISTORY: Denies alcohol and drug abuse, but she used to be a smoker. FAMILY HISTORY: Noncontributory. REVIEW OF SYSTEMS: Discussed as above in history and past medical history; otherwise, negative for all systems. PHYSICAL EXAMINATION: GENERAL: The patient is a 69-year-old, sitting up in bed, no apparent distress. VITAL SIGNS: Stable. ABDOMEN: Soft, nondistended, nontender. ASSESSMENT AND PLAN: This patient here with malignant pleural effusion of unknown origin. We will order a pelvic ultrasound at this stage to find out if its origin is coming from the genital tract. After her recovery from the pneumonia and discharged home, I gave her my information so she can call and make an appointment as an outpatient and will take it from there. Thank you very much for asking me to see this patient. Please do not hesitate to call if I can be of any further help in the future. Gaviota Calderon MD DD/VIVEK /[id number] cc: Jose Ortiz MD
[2019-07-16] VITALS: BP 111/63
[2019-07-16 04:00] VITALS: BP 107/62
[2019-07-16] MEDS: METRONIDAZOLE 500 MG TAB PO SCH (06:20)
--- NOTE | 2019-07-16 07:05 | Diagnostic Imaging Report ---
EXAMINATION: CHEST SINGLE (PORTABLE) INDICATION: ^chest tube maintanence ^[id number] ^[id number] COMPARISON: 07/15/2019 FINDINGS: AP view TUBES and LINES: Stable right IJ central line. LUNGS and pleura: Lungs are well inflated. Unchanged small bilateral pleural effusions and right mid to lower lung field airspace opacities. No pneumothorax. PLEURA: No pleural effusion or pneumothorax. HEART AND MEDIASTINUM: The cardiomediastinal silhouette is unremarkable. BONES AND SOFT TISSUES: No acute osseous lesion. Soft tissues are unremarkable. UPPER ABDOMEN: No free air under the diaphragm. IMPRESSION: No significant interval change from prior exam. Signed by: Dr. Dane Hollis MD on 07/16/2019 7:01 AM
[2019-07-16 07:49] VITALS: BP 112/69
[2019-07-16 07:56] VITALS: BP 112/69
[2019-07-16] MEDS: LUBIPROSTONE 24 MCG CAP PO SCH (08:55)
[2019-07-16] MEDS: DOCUSATE SODIUM 100 MG CAP PO SCH ×2 (08:55→17:00)
[2019-07-16] MEDS: METOPROLOL SUCCINATE 25 MG TAB XL PO SCH ×2 (08:56→17:16)
[2019-07-16] MEDS: SALINE 0.65% NAS SOLN 1 SPRAY BTL SCH ×2 (09:00→15:00)
--- NOTE | 2019-07-16 10:43 | Progress Note ---
DATE: SUBJECTIVE: The patient is seen and evaluated. Available labs and notes reviewed. Discussed with the nurse. Discussed with the patient. The patient apparently had some nausea and vomiting last night, status post Phenergan injection. Nausea and vomiting resolved. The patient is currently in a chair and ate breakfast 100% this morning. No nausea or vomiting this morning. REVIEW OF SYSTEMS: No fever, chills, chest pain, or shortness of breath. The patient is more active. She ambulates now on her own with the use of a four-point walker. She feels better overall. MEDICATIONS: The patient remains on Levaquin and Flagyl. LABORATORY STUDIES: White count of 8.71, hemoglobin 9.3, and platelet 549. Creatinine 0.49 with a sodium of 132 and potassium 3.7. These labs are from 07/10 and 07/12. Serology; no new serology studies available. IMAGING: She had a chest x-ray done today showed no significant interval change from prior exam. PHYSICAL EXAMINATION: VITAL SIGNS: Temperature 98.4, pulse is 80, respirations 19, and blood pressure 112/69. GENERAL: Alert and oriented, no acute distress. Remains on with a العلي cath, off the oxygen. Remains with IJ line. Alert and oriented x3. CV: S1-S2. CHEST: Equal expansion. Decreased breath sounds. No acute distress. ABDOMEN: Soft. Obese. Nontender. Positive bowel sounds. HEENT: Moist. No pallor. No JVD. EXTREMITIES: Trace edema. Moves all. No acute finding. ASSESSMENT AND PLAN: 1. Pleural effusion. Pathology is positive for possibility of malignancy on 07/07. 2. Pneumonia. 3. Nausea and vomiting-resolved. See above. 4. Gastroesophageal reflux disease. 5. Urinary tract infection. 6. Elevated liver function tests. 7. The patient is status post mini thoracotomy and decortication, pleurodesis is 07/08/2019. Discussed with Dr. Yee in details. The patient is on Levaquin and Flagyl, which may cause nausea and vomiting. The patient remains with العلي catheter. The plan is for some sort of rehabilitation facility in the rehab or SNF or LTAC as the patient needs it. Further workup in progress in regards of location of probably malignancy. CLINICAL PRACTICE CONSULTANT is on the case and pelvic ultrasound is scheduled. Continue to monitor the patient clinically. Follow with the labs. Please refer to chart for more information. Dictated by Alfonso Perez) KEVON Little Zaid Yee MD /GENEVAL /[id number]
[2019-07-16 12:00] VITALS: BP 95/58
[2019-07-16] MEDS ORDERED: ONDANSETRON HCL 4 MG ORAL DISINTEGRATING TAB PO PRN (12:45)
[2019-07-16] MEDS ORDERED: CEFTRIAXONE SOD 1 GM/NS 50 ML 50 ML IV SCH (13:00)
--- NOTE | 2019-07-16 13:15 | NUR ---
LONG-TERM ACUTE CARE DISCHARGE INFORMATION PATIENT HAS BEEN ACCEPTED TO: [address] [place] [address] ACCEPTING DOCK SUPERVISOR: Ren Scott, HARD TILE SETTER ACCEPTING MD: Dr. Ortiz ROOM: 213 NURSE CALL REPORT TO: [phone] THE FOLLOWING DOCUMENTS MUST ACCOMPANY PATIENT FOR TRANSFER: copy of chart, transfer mar COPIED CHART: community services manager MOT INFO RECEIVED FROM: Jazzy Coker PHYSICIANS ORDER/RECONCILED MED LIST: to be obtained by bedside RN [id number] DNR: n/a MOT completed and placed with pt's packet at nurses station. FRIDA Castano was informed of MOT.
--- NOTE | 2019-07-16 13:37 | NUR ---
staffing account manager called and said that patient has a room ready at LTAC facility. Paged Dr. Dara Ortiz to see if patient can be transferred. Awaiting call back.
[2019-07-16] MEDS ORDERED: CLINDAMYCIN 600MG / 50ML 50 ML IV SCH ×2 (14:00)
--- NOTE | 2019-07-16 14:10 | NUR ---
Dr. Diaz is here making rounds- he says patient to transfer to LTAC with [facility] and make sure he consulted at LTAC facility.
--- NOTE | 2019-07-16 14:19 | NUR ---
Pulmonary Medicine DATE 07/16/2019 SUBJECTIVE: RA fio2 patient ate some, not a lot BM wade in place walked in room only REVIEW OF SYSTEMS: No headaches, no rash PHYSICAL EXAMINATION: VITAL SIGNS: vital signs noted, reviewed per the chart record. GENERAL: no acute distress, alert, calm HEENT: Normocephalic, atraumatic. NECK: Supple. Throat midline. LUNGS: Bilateral air entry, mild decreased BS at bases CARDIOVASCULAR: S1, S2. No murmurs, rubs, or gallops. ABDOMEN: Soft, nontender. EXTREMITIES: No clubbing. No cyanosis. no edema. INTEGUMENT: No rash. No purpura. LABORATORY DATA: wbc 8.7, hct 28, plt 594 IMPRESSION AND PLAN: 1. Massive right-sided lymphocytic pleural effusion, malignancy related Epithelial cell origin NOS, based on cell markers. ?lung cancer ?other --post operative, s/p 07/08/19 minithoracotomy with decortication and pleurodesis 2. Chronic smoker. 3. Hyponatremia, possible SIADH. Resolving 4. Mild allergies. 5. Mild gastroesophageal reflux disease. 6. elevated lfts 7. urinary retention 8. Pneumonia Follow pathology for delineation of the malignancy, apparent mullerian origin tumor Antibiotics per ID continue, including for post obstruction Mobilize OOB Enoxaparin dvt ppx Wade for urinary retention per more PT/OT, strengthen prior to surgery Thank you very much, Dr. Ortiz, for this consult. Please call for question
[2019-07-16 15:29] VITALS: BP 108/65
--- NOTE | 2019-07-16 16:00 | NUR ---
Report given to Belinda, at [facility].
[2019-07-16] MEDS: ENOXAPARIN SOD INJ 40 MG/0.4 ML SYR SC SCH (17:16)
[2019-07-16] MEDS ORDERED: CLINDAMYCIN HCL 150 MG CAP PO SCH (22:00)
== END 2019-07-16 19:01 | DRG 163 ==
LOC: ER 16:07 → ERHOLD 19:17 → MED/SURG2 06-24 14:09 → ICU 07-08 16:00 → IMCU 07-10 16:00 → MED/SURG2 07-14 00:29
PROC: 0B9N3ZX Drainage of Right Pleura, Percutaneous Approach, Diagnostic (ICD-10-PCS; principal; 2019-06-24)
PROC: 0W9930Z Drainage of Right Pleural Cavity with Drainage Device, Percutaneous Approach (ICD-10-PCS; 2019-06-26)
PROC: 0BCK0ZZ Extirpation of Matter from Right Lung, Open Approach (ICD-10-PCS; 2019-07-08)
PROC: 0B5N0ZZ Destruction of Right Pleura, Open Approach (ICD-10-PCS; 2019-07-08)
PROC: 0W9930Z Drainage of Right Pleural Cavity with Drainage Device, Percutaneous Approach (ICD-10-PCS; 2019-07-08)
PROC: 30243N1 Transfusion of Nonautologous Red Blood Cells into Central Vein, Percutaneous Approach (ICD-10-PCS; 2019-07-08)
DX: C34.91 Malignant neoplasm of unspecified part of right bronchus or lung (principal); J18.9 Pneumonia, unspecified organism; J18.1 Lobar pneumonia, unspecified organism; E22.2 Syndrome of inappropriate secretion of antidiuretic hormone; J91.0 Malignant pleural effusion; N39.0 Urinary tract infection, site not specified; E87.1 Hypo-osmolality and hyponatremia; I47.1 Supraventricular tachycardia; J44.0 Chronic obstructive pulmonary disease with (acute) lower respiratory infection; K21.9 Gastro-esophageal reflux disease without esophagitis; Z88.0 Allergy status to penicillin; E83.51 Hypocalcemia; N39.46 Mixed incontinence; D64.9 Anemia, unspecified; J44.9 Chronic obstructive pulmonary disease, unspecified; E87.8 Other disorders of electrolyte and fluid balance, not elsewhere classified; D63.0 Anemia in neoplastic disease; K59.00 Constipation, unspecified; K74.60 Unspecified cirrhosis of liver
CPT/HCPCS: 32555; 36415; 71045; 71046; 71250; 71260; 74470; 76705; 80048; 80053; 81001; 82550; 82553; 82945; 82948; 83518; 83605; 83615; 83735; 83880; 83986; 84100; 84157; 84484; 85025; 85610; 85730; 86850; 86900; 86920; 87040; 87070; 87071; 87075; 87086; 87102; 87116; 87205; 87206; 87400; 87635; 88112; 88304; 88305; 88342; 89051; 93005; 94640; 97139; 99251; 99285; C1713; C1887; J0690; J0696; J1100; J1650; J1885; J1940; J1956; J2001; J2250; J2270; J2370; J2405; J2710; J3010; J7030; J7042; J7050; J7121; P9016; Q0162; Q9967